=== PATIENT | female | born 1980 | race Caucasian/White ===

== ENCOUNTER 2017-03-27 13:34 | Emergency (ER) | payer BC ==
[2017-03-27 13:45] VITALS: BP 154/93
[2017-03-27] MEDS ORDERED: Ondansetron 4 MG/2 ML SDV IVPUSH ONE ×2 (14:00→17:10)
--- NOTE | 2017-03-27 14:00 | EDM.PDOC ---
ED HPI GI/ABDOMINAL - General Chief Complaint: Abdominal Pain Stated Complaint: ABDOMINAL PAIN Time Seen by Provider: 03/27/17 14:00 Source of Information: Reports: Patient, RN notes reviewed History Limitations: Reports: No limitations - History of Present Illness INITIAL COMMENTS - FREE TEXT/NARRATIVE: 36 year old female presents to the ED today with approximately 13 hour history of nausea, vomiting and diarrhea. She reports 20+ diarrhea stools and episodes of vomiting today. The symptoms came on suddenly. She reports feeling bloated with severe cramping, rated 10/10. The pain is located to her upper abdomen and epigastric region. She denies fever or chills. No other family members are sick. She does not feel she ate any rotten or bad food. No association with spicy or fatty food. This is a new problem for her. She's had no previous episodes like this in the past. She has a history of a D&C. She still has her gallbladder and appendix. She denies drinking any alcohol. She denies urinary symptoms and flank pain. She admits to smoking marijuana but not for a couple days. However, she says she's been around people who have been smoking marijuana. She denies urinary symptoms and flank pain. She is not on any forms of control. - Related Data Allergies/ADRs: Allergies Allergy/AdvReac Type Severity Reaction Status Date / Time amoxicillin Allergy Hives Verified 03/27/17 13:45 Penicillins Allergy Hives Verified 03/27/17 13:45 Home Meds: Home Meds Dicyclomine [Bentyl] 10 mg PO TID PRN #10 cap 03/27/17 [Rx] Ondansetron [Zofran ODT] 4 mg PO Q6H PRN #15 tab.dis 03/27/17 [Rx] Past Medical History - Past Health History Medical/Surgical History: Denies Medical/Surgical History Social & Family History - Tobacco Use Smoking Status *Q: Current Every Day Smoker Years of Tobacco use: 10 Packs/Tins Daily: 0.5 - Caffeine Use Caffeine Use: Reports: Soda - Recreational Drug Use Recreational Drug Use: No ED ROS GENERAL - Review of Systems Review Of Systems: See Below Constitutional: Reports: no symptoms. Denies: fever, chills, diaphoresis Respiratory: Reports: No Symptoms. Denies: Shortness of Breath, Cough Cardiovascular: Reports: No symptoms. Denies: Chest pain GI/Abdominal: Reports: Abdominal pain, Diarrhea, Decreased appetite, Nausea, Vomiting. Denies: Bloody stool, Hematochezia : Reports: no symptoms. Denies: dysuria, flank pain, frequency, urgency ED EXAM, GI/ABD - Physical Exam Exam: See Below Exam Limited By: No limitations General Appearance: alert, anxious, severe distress, obese Respiratory/Chest: no respiratory distress, lungs clear, normal breath sounds Cardiovascular: regular rate, rhythm, tachycardia GI/Abdominal: soft, no organomegaly, no distention, hypoactive bowel sounds, tenderness (RUQ, LUQ, and epigastric ), guarding, Griffin's sign Back Exam: normal inspection, full range of motion. No: CVA tenderness (L), CVA tenderness (R) Neurological: alert, normal cognition Course - Vital Signs Last Recorded V/S: Last Vital Signs Temp 97.5 F 03/27/17 13:42 Pulse 103 H 03/27/17 13:42 Resp 18 03/27/17 13:42 BP 154/93 H 03/27/17 13:42 Pulse Ox 98 03/27/17 13:42 - Orders/Labs/Meds Orders: Active Orders 24 hr Category Date Time Status Peripheral IV Care [RC] . DIRECTED Care 03/27/17 14:06 Active Abdomen 2V AP Flat Upright [CR] Stat Exams 03/27/17 15:29 Taken Abdomen Pelvis w Cont [CT] Stat Exams 03/27/17 14:20 Stop Req Sodium Chloride 0.9% [Saline Flush] Med 03/27/17 14:05 Active 10 ml FLUSH ASDIRECTED PRN Peripheral IV Insertion Adult [OM.PC] Stat Oth 03/27/17 14:06 Ordered Medication Orders Sodium Chloride (Saline Flush) 10 ml FLUSH ASDIRECTED PRN PRN Reason: Keep Vein Open Last Admin: 03/27/17 14:31 Dose: 10 ml Labs: Laboratory Tests 03/27/17 03/27/17 03/27/17 Range/Units 13:43 13:55 13:55 WBC 19.80 H (3.98-10.04) K/mm3 RBC 5.66 H (3.98-5.22) M/mm3 Hgb 15.7 (11.2-15.7) gm/L Hct 47.3 H (34.1-44.9) % MCV 83.6 (79.4-94.8) fl MCH 27.7 (25.6-32.2) pg MCHC 33.2 (32.2-35.5) g/dl RDW Std Deviation 43.0 (36.4-46.3) fL Plt Count 302 (182-369) K/mm3 MPV 9.7 (9.4-12.3) fl Neutrophils % (Manual) 77 H (40-60) % Band Neutrophils % 0 (0-10) % Lymphocytes % (Manual) 7 L (20-40) % Atypical Lymphs % 0 % Monocytes % (Manual) 3 (2-10) % Eosinophils % (Manual) 12 H (0.7-5.8) % Basophils % (Manual) 1 (0.1-1.2) Platelet Estimate Adequate Plt Morphology Comment Normal RBC Morph Comment Normal Sodium 140 (136-145) mEq/L Potassium 4.1 (3.5-5.1) mEq/L Chloride 103 (98-107) mEq/L Carbon Dioxide 27 (21-32) mEq/L Anion Gap 14.1 (5-15) BUN 16 (7-18) mg/dL Creatinine 1.0 (0.55-1.02) mg/dL Est Cr Clr Drug Dosing 72.11 mL/min Estimated GFR (MDRD) > 60 (>60) mL/min BUN/Creatinine Ratio 16.0 (14-18) Glucose 124 H (74-106) mg/dL Calcium 9.3 (8.5-10.1) mg/dL Total Bilirubin 0.4 (0.2-1.0) mg/dL AST 16 (15-37) U/L ALT 24 (14-59) U/L Alkaline Phosphatase 91 (46-116) U/L C-Reactive Protein (<1.0) mg/dL Total Protein 8.1 (6.4-8.2) g/dl Albumin 3.9 (3.4-5.0) g/dl Globulin 4.2 gm/dL Albumin/Globulin Ratio 0.9 L (1-2) Lipase 62 L (73-393) U/L Urine Color (Yellow) Urine Appearance (Clear) Urine pH (5.0-8.0) Ur Specific [place] (1.005-1.030) Urine Protein (Negative) Urine Glucose (UA) (Negative) Urine Ketones (Negative) Urine Occult Blood (Negative) Urine Nitrite (Negative) Urine Bilirubin (Negative) Urine Urobilinogen (0.2-1.0) Ur Leukocyte Esterase (Negative) Urine RBC (0-5) /hpf Urine WBC (0-5) /hpf Ur Epithelial Cells (0-5) /hpf Amorphous Sediment (NOT SEEN) /hpf Urine Bacteria (FEW) /hpf Urine Mucus (FEW) /hpf Urine HCG, Qual (NEGATIVE) Ethyl Alcohol 0.00 (0.00) gm% 03/27/17 03/27/17 03/27/17 Range/Units 15:55 16:05 16:05 WBC (3.98-10.04) K/mm3 RBC (3.98-5.22) M/mm3 Hgb (11.2-15.7) gm/L Hct (34.1-44.9) % MCV (79.4-94.8) fl MCH (25.6-32.2) pg MCHC (32.2-35.5) g/dl RDW Std Deviation (36.4-46.3) fL Plt Count (182-369) K/mm3 MPV (9.4-12.3) fl Neutrophils % (Manual) (40-60) % Band Neutrophils % (0-10) % Lymphocytes % (Manual) (20-40) % Atypical Lymphs % % Monocytes % (Manual) (2-10) % Eosinophils % (Manual) (0.7-5.8) % Basophils % (Manual) (0.1-1.2) Platelet Estimate Plt Morphology Comment RBC Morph Comment Sodium (136-145) mEq/L Potassium (3.5-5.1) mEq/L Chloride (98-107) mEq/L Carbon Dioxide (21-32) mEq/L Anion Gap (5-15) BUN (7-18) mg/dL Creatinine (0.55-1.02) mg/dL Est Cr Clr Drug Dosing mL/min Estimated GFR (MDRD) (>60) mL/min BUN/Creatinine Ratio (14-18) Glucose (74-106) mg/dL Calcium (8.5-10.1) mg/dL Total Bilirubin (0.2-1.0) mg/dL AST (15-37) U/L ALT (14-59) U/L Alkaline Phosphatase (46-116) U/L C-Reactive Protein 0.9 (<1.0) mg/dL Total Protein (6.4-8.2) g/dl Albumin (3.4-5.0) g/dl Globulin gm/dL Albumin/Globulin Ratio (1-2) Lipase (73-393) U/L Urine Color Yellow (Yellow) Urine Appearance Clear (Clear) Urine pH 7.0 (5.0-8.0) Ur Specific [place] 1.025 (1.005-1.030) Urine Protein Trace H (Negative) Urine Glucose (UA) Negative (Negative) Urine Ketones 3+ H (Negative) Urine Occult Blood Negative (Negative) Urine Nitrite Negative (Negative) Urine Bilirubin 1+ H (Negative) Urine Urobilinogen 0.2 (0.2-1.0) Ur Leukocyte Esterase Negative (Negative) Urine RBC 0-5 (0-5) /hpf Urine WBC 0-5 (0-5) /hpf Ur Epithelial Cells 0-5 (0-5) /hpf Amorphous Sediment Few H (NOT SEEN) /hpf Urine Bacteria Few (FEW) /hpf Urine Mucus Moderate H (FEW) /hpf Urine HCG, Qual Negative (NEGATIVE) Ethyl Alcohol (0.00) gm% Meds: Medications Generic Name Dose Route Start Last Admin Trade Name Rohini PRN Reason Stop Dose Admin Sodium Chloride 10 ml 03/27/17 14:05 03/27/17 14:31 Saline Flush FLUSH 10 ml ASDIRECTED PRN Administration Keep Vein Open Discontinued Medications Generic Name Dose Route Start Last Admin Trade Name Rohini PRN Reason Stop Dose Admin Dicyclomine HCl 10 mg 03/27/17 17:37 03/27/17 17:52 Bentyl PO 03/27/17 17:38 10 mg ONETIME ONE Administration Hydromorphone HCl 0.5 mg 03/27/17 14:17 03/27/17 14:26 Dilaudid IVPUSH 03/27/17 14:18 0.5 mg ONETIME ONE Administration Hydromorphone HCl 0.5 mg 03/27/17 15:25 03/27/17 15:30 Dilaudid IVPUSH 03/27/17 15:26 0.5 mg ONETIME ONE Administration Hydromorphone HCl 0.5 mg 03/27/17 16:25 03/27/17 16:32 Dilaudid IVPUSH 03/27/17 16:26 0.5 mg STAT ONE Administration Hydromorphone HCl 1 mg 03/27/17 17:29 03/27/17 17:42 Dilaudid IVPUSH 03/27/17 17:30 1 mg ONETIME ONE Administration Sodium Chloride 1,000 mls @ 999 mls/hr 03/27/17 14:17 03/27/17 14:23 Normal Saline IV 03/27/17 15:17 999 mls/hr ONETIME ONE Administration Ketorolac Tromethamine 30 mg 03/27/17 14:17 03/27/17 14:24 Toradol IVPUSH 03/27/17 14:18 30 mg ONETIME ONE Administration Lorazepam 0.5 mg 03/27/17 15:26 03/27/17 15:33 Ativan IVPUSH 03/27/17 15:27 0.5 mg ONETIME ONE Administration Ondansetron HCl 4 mg 03/27/17 14:00 03/27/17 14:05 Zofran IVPUSH 03/27/17 14:01 4 mg ONETIME ONE Administration Ondansetron HCl 4 mg 03/27/17 17:10 03/27/17 17:20 Zofran IVPUSH 03/27/17 17:11 4 mg ONETIME ONE Administration Promethazine HCl 25 mg 03/27/17 14:54 03/27/17 14:59 Phenergan IM 03/27/17 14:55 25 mg ONETIME ONE Administration - Re-Assessments/Exams Free Text/Narrative Re-Assessment/Exam: CBC reveals an elevated WBC of 19,000 but a normal differential indicating that this is likely a stress response. CRP is normal. CMP is normal except for mildly elevated glucose. Lipase is normal. UA is normal. Hcg is negative. Flat and upright abdominal film is unremarkable. No increased stool to indicate constipation. No air fluid levels to raise concern for bowel obstruction. The patient reported 20+ loose stools today, however she has had no stools while in the ED. She has had several episodes of dry heaving and vomiting despite a total of 8mg of Zofran and 25mg of Phenergan. She continued to have pain despite several doses of IV Dilaudid. Discussed history, exam, labs, and x-ray with Dr. Bailey. He does not recommend any further workup as an acute abdomen has been ruled out. Etiology is unclear. Differential includes gastroenteritis versus cannabis hyperemesis syndrome. I discussed these two diagnoses with the patient and educated her on supportive management. Prescriptions provided for Zofran and Bentyl. Instructed to f/u in ED if not improved in 24-48 hours. Departure - Departure Time of Disposition: 18:09 Disposition: Home, Self-Care 01 Condition: fair Clinical Impression: Nausea & vomiting Qualifiers: Vomiting type: unspecified Vomiting Intractability: intractable Qualified Code( s): R11.2 - Nausea with vomiting, unspecified Prescriptions: Dicyclomine [Bentyl] 10 mg PO TID PRN #10 cap PRN Reason: Cramping Ondansetron [Zofran ODT] 4 mg PO Q6H PRN #15 tab.dis PRN Reason: Nausea Referrals: PCP,None [Primary Care Provider] - Forms: ED Department Discharge Additional Instructions: Return to ER if symptoms worsen or do not improve in 24-48 hours Zofran 4mg tab every 6 hours as needed for nausea Bentyl 10mg up to 3 times a day as needed for cramping Immodium as directed for diarrhea You can also try Tylenol and Motrin for pain or fevers Try taking a hot shower and/or applying a heating pad to your stomach, this may offer quite a bit of relief Avoid marijuana Drink plenty of water and electrolyte beverages. Slowly advance your diet as tolerated - My Orders Last 24 Hours: My Active Orders 03/27/17 14:05 Sodium Chloride 0.9% [Saline Flush] 10 ml FLUSH ASDIRECTED PRN 03/27/17 14:06 Peripheral IV Care [RC] . DIRECTED Peripheral IV Insertion Adult [OM.PC] Stat 03/27/17 14:20 Abdomen Pelvis w Cont [CT] Stat 03/27/17 15:29 Abdomen 2V AP Flat Upright [CR] Stat - Assessment/Plan Last 24 Hours: My Active Orders 03/27/17 14:05 Sodium Chloride 0.9% [Saline Flush] 10 ml FLUSH ASDIRECTED PRN 03/27/17 14:06 Peripheral IV Care [RC] . DIRECTED Peripheral IV Insertion Adult [OM.PC] Stat 03/27/17 14:20 Abdomen Pelvis w Cont [CT] Stat 03/27/17 15:29 Abdomen 2V AP Flat Upright [CR] Stat
[2017-03-27] MEDS ORDERED: Sodium Chloride 0.9% 10 ML Syringe FLUSH PRN (14:05)
[2017-03-27] MEDS ORDERED: HYDROmorphone 0.5 MG/0.5 ML Syringe IVPUSH ONE ×2 (14:17→16:25)
[2017-03-27] MEDS ORDERED: Sodium Chloride 0.9% 1,000 ML IV ONE (14:17)
[2017-03-27] MEDS ORDERED: Ketorolac 30 MG/ML SDV IVPUSH ONE (14:17)
[2017-03-27] MEDS ORDERED: Promethazine 25 MG/ML SDV IM ONE (14:54)
[2017-03-27] MEDS ORDERED: HYDROmorphone 1 MG/ML Syringe IVPUSH ONE ×2 (15:25→17:29)
[2017-03-27] MEDS ORDERED: LORazepam 2 MG/ML MDV IVPUSH ONE (15:26)
[2017-03-27] MEDS ORDERED: Dicyclomine 10 MG Cap PO ONE (17:37)
--- NOTE | 2017-03-28 07:36 | CR ---
Abdomen: Supine and upright views of the abdomen were obtained. Bowel gas pattern is unremarkable. No abnormal calcifications or soft tissue abnormality is seen. Bony structures are unremarkable. No free air is identified. Impression: 1. No abnormality is identified on supine and upright abdominal x-ray. Diagnostic code #1
== END 2017-03-27 18:27 | disposition home or self-care (01) ==
LOC: JD.ED 13:34
DX: R11.2 Nausea with vomiting, unspecified (principal); R19.7 Diarrhea, unspecified; Z88.0 Allergy status to penicillin; Z88.1 Allergy status to other antibiotic agents; F17.200 Nicotine dependence, unspecified, uncomplicated
CPT/HCPCS: 36415; 74020; 80053; 81001; 81025; 83690; 85025; 86140; 96361; 96372; 96374; 96375; 96376; 99284; A9270; G0480; J1170; J1885; J2060; J2405; J2550; J7040; J7050

== ENCOUNTER 2017-03-29 18:43 | Emergency (ER) | payer BC ==
[2017-03-29 19:03] VITALS: BP 155/91
[2017-03-29] MEDS ORDERED: Sodium Chloride 0.9% 1,000 ML IV SCH ×2 (19:15→22:00)
[2017-03-29] MEDS ORDERED: Ondansetron 4 MG/2 ML SDV IVPUSH ONE (19:15)
[2017-03-29] MEDS ORDERED: LORazepam 2 MG/ML MDV IVPUSH ONE (19:15)
--- NOTE | 2017-03-29 19:45 | EDM.PDOC ---
ED HPI GI/ABDOMINAL - General Chief Complaint: Abdominal Pain Stated Complaint: VOMITING CRAMPING BODY TREMORS Time Seen by Provider: 03/29/17 18:58 Source of Information: Reports: Patient History Limitations: Reports: No limitations - History of Present Illness INITIAL COMMENTS - FREE TEXT/NARRATIVE: This is a 36-year-old female. She was seen 2 nights ago for abdominal pain nausea and vomiting and diarrhea. She was worked up had a white count of 19 ,000 and had a x-ray of her abdomen that was negative. Her urine was negative. Her electrolytes appeared to be within normal limits including liver function kidney function. She was given some Zofran and some Bentyl. She comes back today having the same complaints but they seemed to be getting worse and now she is having these twitching spells. The diarrhea has pretty much resolved but she still having the nausea and vomiting and the abdominal cramps. She states that she tries to eat or drink anything her abdomen immediately cramps up and she gets nauseated and if it's food she often times will vomit it back up. She has not been able to drink much fluids or eat anything in the last couple of days. She has no history of ulcer or she's had no sore throat no cough no congestion. All her abdominal cramping is in the upper abdomen. She is having a low-grade fever today of 99.9. Denies any back pain no difficulty in urination. - Related Data Allergies/ADRs: Allergies Allergy/AdvReac Type Severity Reaction Status Date / Time amoxicillin Allergy Hives Verified 03/27/17 13:45 Penicillins Allergy Hives Verified 03/27/17 13:45 Home Meds: Home Meds Dicyclomine [Bentyl] 10 mg PO TID PRN #10 cap 03/27/17 [Rx] Ondansetron [Zofran ODT] 4 mg PO Q6H PRN #15 tab.dis 03/27/17 [Rx] Pantoprazole Sodium [Protonix] 40 mg PO DAILY #30 suspdr.pkt 03/29/17 [Rx] Promethazine [Phenergan] 25 mg PO Q6H PRN #20 tablet 03/29/17 [Rx] Past Medical History - Past Health History Medical/Surgical History: Denies Medical/Surgical History - Past Surgical History Female Surgical History: Reports: D&C Social & Family History - Tobacco Use Smoking Status *Q: Never Smoker Years of Tobacco use: 10 Packs/Tins Daily: 0.5 - Caffeine Use Caffeine Use: Reports: Soda - Recreational Drug Use Recreational Drug Use: No ED ROS GENERAL - Review of Systems Review Of Systems: See Below Constitutional: Reports: fever, chills, weakness, fatigue HEENT: Reports: No symptoms Respiratory: Reports: No Symptoms Cardiovascular: Reports: No symptoms Endocrine: Reports: no symptoms GI/Abdominal: Reports: Abdominal pain, Diarrhea, Decreased appetite, Nausea, Vomiting. Denies: Black stool, Bloody stool : Reports: other ( she just finished her period). Denies: dysuria, flank pain Musculoskeletal: Reports: no symptoms Skin: Reports: no symptoms Neurological: Reports: No Symptoms Psychiatric: Reports: No symptoms Hematologic/Lymphatic: Reports: no symptoms Immunologic: Reports: no symptoms ED EXAM, GI/ABD - Physical Exam Exam: See Below Exam Limited By: No limitations General Appearance: alert, WD/WN, anxious, mild distress Eyes: bilateral: normal appearance Ears: normal external exam, normal canal, normal TMs Nose: normal inspection Throat/Mouth: Normal lips, Normal oropharynx, Normal voice Head: normocephalic Neck: supple, non-tender Respiratory/Chest: no respiratory distress, lungs clear, normal breath sounds Cardiovascular: regular rate, rhythm, tachycardia GI/Abdominal: soft, hypoactive bowel sounds, tenderness, guarding, Griffin's sign , other (Her abdominal pain appears to be in the epigastric and right upper quadrant, minimal left upper quadrant tenderness tonight and when she is distracted she has no lower abdominal tenderness noted). No: distention, rebound, rigidity Back Exam: full range of motion. No: CVA tenderness (L), CVA tenderness (R) Extremities: normal inspection, normal range of motion Neurological: alert, oriented Psychiatric: anxious Skin Exam: Warm, Dry Course - Vital Signs Last Recorded V/S: Last Vital Signs Temp 98.7 F 03/29/17 19:01 Pulse 88 03/29/17 19:01 Resp 20 03/29/17 19:01 BP 155/91 H 03/29/17 19:01 Pulse Ox 100 03/29/17 19:01 - Orders/Labs/Meds Orders: Active Orders 24 hr Category Date Time Status Abdomen Ltd [US] Stat Exams 04/29/17 19:19 Taken Sodium Chloride 0.9% [Normal Saline] 1,000 ml Med 03/29/17 19:15 Active IV ASDIRECTED Sodium Chloride 0.9% [Normal Saline] 1,000 ml Med 03/29/17 22:00 Active IV ASDIRECTED Medication Orders Sodium Chloride (Normal Saline) 1,000 mls @ 1,000 mls/hr IV ASDIRECTED JOHNIE Last Admin: 03/29/17 19:28 Dose: 1,000 mls/hr Sodium Chloride (Normal Saline) 1,000 mls @ 999 mls/hr IV ASDIRECTED JOHNIE Last Admin: 03/29/17 22:20 Dose: 999 mls/hr Labs: Laboratory Tests 03/29/17 03/29/17 03/29/17 Range/Units 19:30 19:30 21:55 WBC 12.40 H (3.98-10.04) K/mm3 RBC 5.37 H (3.98-5.22) M/mm3 Hgb 15.2 (11.2-15.7) gm/L Hct 44.7 (34.1-44.9) % MCV 83.2 (79.4-94.8) fl MCH 28.3 (25.6-32.2) pg MCHC 34.0 (32.2-35.5) g/dl RDW Std Deviation 41.9 (36.4-46.3) fL Plt Count 286 (182-369) K/mm3 MPV 9.6 (9.4-12.3) fl Neut % (Auto) 72.0 H (34.0-71.1) % Lymph % (Auto) 18.6 L (19.3-51.7) % [place] % (Auto) 5.9 (4.7-12.5) % Eos % (Auto) 3.1 (0.7-5.8) Baso % (Auto) 0.2 (0.1-1.2) % Neut # (Auto) 8.92 H (1.56-6.13) K/mm3 Lymph # (Auto) 2.31 (1.18-3.74) K/mm3 Casey # (Auto) 0.73 H (0.24-0.36) K/mm3 Eos # (Auto) 0.38 H (0.04-0.36) K/mm3 Baso # (Auto) 0.03 (0.01-0.08) K/mm3 Sodium 139 (136-145) mEq/L Potassium 3.1 L (3.5-5.1) mEq/L Chloride 102 (98-107) mEq/L Carbon Dioxide 27 (21-32) mEq/L Anion Gap 13.1 (5-15) BUN 15 (7-18) mg/dL Creatinine 1.1 H (0.55-1.02) mg/dL Est Cr Clr Drug Dosing 68.09 mL/min Estimated GFR (MDRD) 56 (>60) mL/min BUN/Creatinine Ratio 13.6 L (14-18) Glucose 105 (74-106) mg/dL Calcium 8.9 (8.5-10.1) mg/dL Total Bilirubin 0.5 (0.2-1.0) mg/dL AST 24 (15-37) U/L ALT 29 (14-59) U/L Alkaline Phosphatase 78 (46-116) U/L Total Protein 8.1 (6.4-8.2) g/dl Albumin 3.9 (3.4-5.0) g/dl Globulin 4.2 gm/dL Albumin/Globulin Ratio 0.9 L (1-2) Lipase 85 (73-393) U/L Urine Color Yellow (Yellow) Urine Appearance Slt cloudy H (Clear) Urine pH 7.0 (5.0-8.0) Ur Specific [place] 1.025 (1.005-1.030) Urine Protein 1+ H (Negative) Urine Glucose (UA) Negative (Negative) Urine Ketones 3+ H (Negative) Urine Occult Blood Negative (Negative) Urine Nitrite Negative (Negative) Urine Bilirubin 1+ H (Negative) Urine Urobilinogen 0.2 (0.2-1.0) Ur Leukocyte Esterase Negative (Negative) Urine RBC Not seen (0-5) /hpf Urine WBC 0-5 (0-5) /hpf Ur Epithelial Cells Not Reportable Ur Squamous Epith Cells 5-10 H (0-5) /hpf Urine Bacteria Few (FEW) /hpf Urine Mucus Moderate H (FEW) /hpf Meds: Medications Generic Name Dose Route Start Last Admin Trade Name Freq PRN Reason Stop Dose Admin Sodium Chloride 1,000 mls @ 1,000 mls/hr 03/29/17 19:15 03/29/17 19:28 Normal Saline IV 1,000 mls/hr ASDIRECTED JOHNIE Administration Sodium Chloride 1,000 mls @ 999 mls/hr 03/29/17 22:00 03/29/17 22:20 Normal Saline IV 999 mls/hr ASDIRECTED JOHNIE Administration Discontinued Medications Generic Name Dose Route Start Last Admin Trade Name Rohini PRN Reason Stop Dose Admin Lorazepam 0.5 mg 03/29/17 19:15 03/29/17 19:30 Ativan IVPUSH 03/29/17 19:16 0.5 mg ONETIME ONE Administration Ondansetron HCl 4 mg 03/29/17 19:15 03/29/17 19:29 Zofran IVPUSH 03/29/17 19:16 4 mg ONETIME ONE Administration Pantoprazole Sodium 40 mg 03/29/17 22:56 03/29/17 23:10 Protonix Iv IVPUSH 03/29/17 22:57 40 mg ONETIME ONE Administration Potassium Bicarbonate 40 meq 03/29/17 20:44 03/29/17 20:55 Effer-K PO 03/29/17 20:45 40 meq ONETIME ONE Administration Promethazine HCl 25 mg 03/29/17 22:01 03/29/17 22:20 Phenergan PO 03/29/17 22:02 25 mg Q4H ONE Administration - Re-Assessments/Exams Free Text/Narrative Re-Assessment/Exam: 03/29/17 22:54 I spoke to the patient at length regarding her lifestyle. She states she does not drink alcohol any longer. She is on a diet she is taking Wellbutrin, naltrexone and diethylpropion for her diet. It is noted that the naltrexone and diethylpropion have problems with nausea and vomiting as well as stomach discomfort. she has stopped these since the symptoms started and I believe she has a gastritis of unknown etiology and that we need to optimize her living conditions. So she needs to stop these medications until she is completely symptom-free and then she can start them again. 03/29/17 23:51 I went over the patient's food and diet and encouraged her not to be taking that she knows is going to upset her stomach. She tends to be lactose intolerant but she loves cheese and then has to stop until her belly feels better area also cautioned her no caffeine no citrus, stick to water and she may have Gatorade or Powerade provider does not citrus-based. She needs to optimize her food intake to those thing she knows does not cause her stomach upset. Departure - Departure Time of Disposition: 23:52 Disposition: Home, Self-Care 01 Condition: good Clinical Impression: Abdominal discomfort Gastritis Qualifiers: Gastritis type: other gastritis Chronicity: acute Gastritis bleeding: without bleeding Qualified Code(s): K29.00 - Acute gastritis without bleeding Nausea & vomiting Qualifiers: Vomiting type: unspecified Vomiting Intractability: intractable Qualified Code( s): R11.2 - Nausea with vomiting, unspecified Prescriptions: Pantoprazole Sodium [Protonix] 40 mg PO DAILY #30 suspdr.pkt Promethazine [Phenergan] 25 mg PO Q6H PRN #20 tablet PRN Reason: Nausea Forms: ED Department Discharge Additional Instructions: Continue to drink lots of fluids, stop Zofran since not helping, stop the Bentyl is a dozen to be helping either and might be the reason why you're having some of the twitches, started on a protonix and take 40 mg in the morning , use the Phenergan as needed for nausea, then you need to optimize your diet so that you do not eat or consume anything that aggravates your abdomen, with a gastritis you have to set the belly to rest and once it heals you can resume your diet, followup with your family doctor later this week for recheck, return to the ER if needed - My Orders Last 24 Hours: My Active Orders 03/29/17 19:15 Sodium Chloride 0.9% [Normal Saline] 1,000 ml IV ASDIRECTED 03/29/17 19:19 VIS Research [US] Stat 03/29/17 22:00 Sodium Chloride 0.9% [Normal Saline] 1,000 ml IV ASDIRECTED - Assessment/Plan Last 24 Hours: My Active Orders 03/29/17 19:15 Sodium Chloride 0.9% [Normal Saline] 1,000 ml IV ASDIRECTED 03/29/17 19:19 VIS Research [US] Stat 03/29/17 22:00 Sodium Chloride 0.9% [Normal Saline] 1,000 ml IV ASDIRECTED
[2017-03-29] MEDS ORDERED: Potassium Bicarbonate/Cit Ac 20 MEQ Effervescent Tab PO ONE (20:44)
[2017-03-29] MEDS ORDERED: Promethazine 25 MG Tab PO ONE (22:01)
[2017-03-29] MEDS ORDERED: Pantoprazole 40 MG Vial IVPUSH ONE (22:56)
--- NOTE | 2017-03-30 13:54 | US ---
Limited abdominal ultrasound: Multiple real-time images were obtained of the right upper abdomen. Comparison: No previous ultrasound or CT examination. Technologist's note: Technically difficult exam due to body habitus and bowel gas Liver shows no discrete abnormality. Gallbladder shows no gallstones. No gallbladder wall thickening or biliary duct dilatation is seen. Hypoechoic area seen within the mid to upper right renal pelvis most likely due to small parapelvic cyst measuring 1.1 cm. Pancreas is mostly obscured from bowel gas. Visualized portions of the pancreas are unremarkable. Impression: 1. Less than optimal study as noted above. 2. Possible parapelvic cyst within the right kidney which is incidental. 3. No additional abnormality is appreciated on right upper quadrant abdominal ultrasound exam. Diagnostic code #2 I agree with preliminary report issued by [facility] (report finalized on 03/29/17, 10:09 PM Central Time)
== END 2017-03-30 00:05 | disposition home or self-care (01) ==
LOC: JD.ED 18:43
DX: K29.00 Acute gastritis without bleeding (principal); Z88.0 Allergy status to penicillin; Z88.1 Allergy status to other antibiotic agents; Z79.899 Other long term (current) drug therapy
CPT/HCPCS: 36415; 76705; 80053; 81001; 83690; 85025; 96361; 96374; 96375; 99284; A9270; C9113; J2060; J2405; J7040; Q0169

== ENCOUNTER 2017-04-01 08:47 | Inpatient (IN) | payer BC ==
[2017-04-01] MEDS ORDERED: Sodium Chloride 0.9% 2,000 ML IV STA (09:15)
[2017-04-01] MEDS ORDERED: Ondansetron 4 MG/2 ML SDV IVPUSH ONE (09:15)
[2017-04-01] MEDS ORDERED: Sodium Chloride 0.9% 10 ML Syringe FLUSH PRN ×2 (09:15→10:12)
[2017-04-01] MEDS ORDERED: HYDROmorphone 1 MG/ML Syringe IVPUSH ONE (09:17)
--- NOTE | 2017-04-01 10:03 | EDM.PDOC ---
ED HPI GI/ABDOMINAL - General Chief Complaint: Abdominal Pain Stated Complaint: ABDOMINAL PAIN Time Seen by Provider: 04/01/17 09:05 Source of Information: Reports: Patient, Family History Limitations: Reports: No limitations - History of Present Illness INITIAL COMMENTS - FREE TEXT/NARRATIVE: The patient presents with upper abdominal pain, nausea and vomiting that started or 6 days ago. The patient was evaluated her on and again on Friday. She said it all started with some diarrhea. She has no diarrhea but she has upper abdominal pain, nausea and vomiting. Whatever she eats causes pain and then she vomits. She cannot keep anything down. She has no dysuria. She has fever and chills. She has no cough, congestion, runny nose , chest pain or shortness of breath. She still has her appendix and gallbladder. Timing/Duration: Reports: Day(s): (6) Location: other (upper) Quality: Reports: stabbing Severity: moderate Context: Denies: sick contact, bad/questionable food, out of country travel, recent surgery, recent trauma, lifting, activity/exercise Associated Symptoms (-Female): Reports: diarrhea (Initially but none now), fever/chills, loss of appetite, nausea/vomiting. Denies: chest pain - Related Data Allergies/ADRs: Allergies Allergy/AdvReac Type Severity Reaction Status Date / Time amoxicillin Allergy Hives Verified 04/01/17 08:57 Penicillins Allergy Hives Verified 04/01/17 08:57 Home Meds: Home Meds Pantoprazole Sodium [Protonix] 40 mg PO DAILY #30 suspdr.pkt 03/29/17 [Rx] Past Medical History - Past Health History Medical/Surgical History: Denies Medical/Surgical History - Past Surgical History Female Surgical History: Reports: D&C Social & Family History - Tobacco Use Smoking Status *Q: Unknown Ever Smoked Years of Tobacco use: 10 Packs/Tins Daily: 0.5 - Caffeine Use Caffeine Use: Reports: Soda - Recreational Drug Use Recreational Drug Use: No ED ROS GENERAL - Review of Systems Review Of Systems: See Below Constitutional: Reports: no symptoms HEENT: Reports: No symptoms Respiratory: Reports: No Symptoms Cardiovascular: Reports: No symptoms Endocrine: Reports: no symptoms GI/Abdominal: Reports: Abdominal pain, Diarrhea (Initially but none now), Nausea , Vomiting : Reports: no symptoms Musculoskeletal: Reports: no symptoms Skin: Reports: no symptoms Neurological: Reports: No Symptoms ED EXAM, GI/ABD - Physical Exam Exam: See Below Exam Limited By: No limitations General Appearance: alert, no apparent distress Ears: normal external exam Nose: normal inspection Throat/Mouth: Other (dry mucus membranes) Head: atraumatic, normocephalic Neck: normal inspection Respiratory/Chest: no respiratory distress, lungs clear, normal breath sounds Cardiovascular: regular rate, rhythm, no edema, no murmur GI/Abdominal: soft, no organomegaly, no mass, tenderness (Moderate to the upper abdomen) Back Exam: normal inspection Extremities: normal inspection Course - Vital Signs Last Recorded V/S: Last Vital Signs Temp 98.7 F 04/01/17 08:54 Pulse 87 04/01/17 08:54 Resp 18 04/01/17 08:54 BP 146/96 H 04/01/17 08:54 Pulse Ox 100 04/01/17 08:54 Orthostatic Blood Pressure [ 126/99 Standing] Orthostatic Blood Pressure [ 146/96 Supine] - Orders/Labs/Meds Orders: Active Orders 24 hr Category Date Time Status Patient Status [ADT] Routine ADT 04/01/17 12:27 Ordered Peripheral IV Care [RC] . DIRECTED Care 04/01/17 09:15 Active Sodium Chloride 0.9% [Saline Flush] Med 04/01/17 09:15 Active 10 ml FLUSH ASDIRECTED PRN Sodium Chloride 0.9% [Saline Flush] Med 04/01/17 10:12 Active 10 ml FLUSH ONETIME PRN ED Antiemetic Medication Reflex [OM.PC] Stat Oth 04/01/17 09:15 Ordered Peripheral IV Insertion Adult [OM.PC] Stat Oth 04/01/17 09:15 Ordered Medication Orders Sodium Chloride (Saline Flush) 10 ml FLUSH ASDIRECTED PRN PRN Reason: Keep Vein Open Last Admin: 04/01/17 09:31 Dose: 10 ml Sodium Chloride (Saline Flush) 10 ml FLUSH ONETIME PRN PRN Reason: IV FLUSH Last Admin: 04/01/17 10:39 Dose: 10 ml Labs: Laboratory Tests 04/01/17 04/01/17 04/01/17 Range/Units 09:34 09:34 09:34 WBC 9.19 (3.98-10.04) K/mm3 RBC 6.36 H (3.98-5.22) M/mm3 Hgb 17.9 H (11.2-15.7) gm/L Hct 51.4 H (34.1-44.9) % MCV 80.8 (79.4-94.8) fl MCH 28.1 (25.6-32.2) pg MCHC 34.8 (32.2-35.5) g/dl RDW Std Deviation 40.4 (36.4-46.3) fL Plt Count 313 (182-369) K/mm3 MPV 9.9 (9.4-12.3) fl Neut % (Auto) 67.0 (34.0-71.1) % Lymph % (Auto) 21.1 (19.3-51.7) % [place] % (Auto) 8.9 (4.7-12.5) % Eos % (Auto) 2.2 (0.7-5.8) Baso % (Auto) 0.5 (0.1-1.2) % Neut # (Auto) 6.15 H (1.56-6.13) K/mm3 Lymph # (Auto) 1.94 (1.18-3.74) K/mm3 [place] # (Auto) 0.82 H (0.24-0.36) K/mm3 Eos # (Auto) 0.20 (0.04-0.36) K/mm3 Baso # (Auto) 0.05 (0.01-0.08) K/mm3 Manual Slide Review Normal smear Sodium 139 (136-145) mEq/L Potassium 3.1 L (3.5-5.1) mEq/L Chloride 100 (98-107) mEq/L Carbon Dioxide 29 (21-32) mEq/L Anion Gap 13.1 (5-15) BUN 15 (7-18) mg/dL Creatinine 1.1 H (0.55-1.02) mg/dL Est Cr Clr Drug Dosing TNP Estimated GFR (MDRD) 56 (>60) mL/min BUN/Creatinine Ratio 13.6 L (14-18) Glucose 104 (74-106) mg/dL Calcium 9.4 (8.5-10.1) mg/dL Total Bilirubin 1.3 H (0.2-1.0) mg/dL AST 31 (15-37) U/L ALT 65 H (14-59) U/L Alkaline Phosphatase 96 (46-116) U/L Total Protein 8.7 H (6.4-8.2) g/dl Albumin 4.1 (3.4-5.0) g/dl Globulin 4.6 gm/dL Albumin/Globulin Ratio 0.9 L (1-2) Lipase 212 (73-393) U/L HCG, Qual Negative (NEGATIVE) Urine Color (Yellow) Urine Appearance (Clear) Urine pH (5.0-8.0) Ur Specific [place] (1.005-1.030) Urine Protein (Negative) Urine Glucose (UA) (Negative) Urine Ketones (Negative) Urine Occult Blood (Negative) Urine Nitrite (Negative) Urine Bilirubin (Negative) Urine Urobilinogen (0.2-1.0) Ur Leukocyte Esterase (Negative) Urine RBC (0-5) /hpf Urine WBC (0-5) /hpf Ur Epithelial Cells (0-5) /hpf Urine Bacteria (FEW) /hpf Urine Mucus (FEW) /hpf 04/01/17 Range/Units 10:55 WBC (3.98-10.04) K/mm3 RBC (3.98-5.22) M/mm3 Hgb (11.2-15.7) gm/L Hct (34.1-44.9) % MCV (79.4-94.8) fl MCH (25.6-32.2) pg MCHC (32.2-35.5) g/dl RDW Std Deviation (36.4-46.3) fL Plt Count (182-369) K/mm3 MPV (9.4-12.3) fl Neut % (Auto) (34.0-71.1) % Lymph % (Auto) (19.3-51.7) % [place] % (Auto) (4.7-12.5) % Eos % (Auto) (0.7-5.8) Baso % (Auto) (0.1-1.2) % Neut # (Auto) (1.56-6.13) K/mm3 Lymph # (Auto) (1.18-3.74) K/mm3 [place] # (Auto) (0.24-0.36) K/mm3 Eos # (Auto) (0.04-0.36) K/mm3 Baso # (Auto) (0.01-0.08) K/mm3 Manual Slide Review Sodium (136-145) mEq/L Potassium (3.5-5.1) mEq/L Chloride (98-107) mEq/L Carbon Dioxide (21-32) mEq/L Anion Gap (5-15) BUN (7-18) mg/dL Creatinine (0.55-1.02) mg/dL Est Cr Clr Drug Dosing Estimated GFR (MDRD) (>60) mL/min BUN/Creatinine Ratio (14-18) Glucose (74-106) mg/dL Calcium (8.5-10.1) mg/dL Total Bilirubin (0.2-1.0) mg/dL AST (15-37) U/L ALT (14-59) U/L Alkaline Phosphatase (46-116) U/L Total Protein (6.4-8.2) g/dl Albumin (3.4-5.0) g/dl Globulin gm/dL Albumin/Globulin Ratio (1-2) Lipase (73-393) U/L HCG, Qual (NEGATIVE) Urine Color Yellow (Yellow) Urine Appearance Clear (Clear) Urine pH 6.5 (5.0-8.0) Ur Specific [place] 1.015 (1.005-1.030) Urine Protein Negative (Negative) Urine Glucose (UA) Negative (Negative) Urine Ketones Trace H (Negative) Urine Occult Blood Negative (Negative) Urine Nitrite Negative (Negative) Urine Bilirubin Negative (Negative) Urine Urobilinogen 0.2 (0.2-1.0) Ur Leukocyte Esterase Trace H (Negative) Urine RBC 0-5 (0-5) /hpf Urine WBC 5-10 H (0-5) /hpf Ur Epithelial Cells 5-10 H (0-5) /hpf Urine Bacteria Rare (FEW) /hpf Urine Mucus Few (FEW) /hpf Meds: Medications Generic Name Dose Route Start Last Admin Trade Name Freq PRN Reason Stop Dose Admin Sodium Chloride 10 ml 04/01/17 09:15 04/01/17 09:31 Saline Flush FLUSH 10 ml ASDIRECTED PRN Administration Keep Vein Open Sodium Chloride 10 ml 04/01/17 10:12 04/01/17 10:39 Saline Flush FLUSH 10 ml ONETIME PRN Administration IV FLUSH Discontinued Medications Generic Name Dose Route Start Last Admin Trade Name Rohini PRN Reason Stop Dose Admin Diatrizoate Meglum/Diatrizoate Sod 90 ml 04/01/17 10:12 04/01/17 10:39 Gastrografin 37% PO 04/01/17 10:13 90 ml ONETIME ONE Administration Hydromorphone HCl 1 mg 04/01/17 09:17 04/01/17 09:30 Dilaudid IVPUSH 04/01/17 09:18 1 mg ONETIME ONE Administration Sodium Chloride 2,000 mls @ 1,000 mls/hr 04/01/17 09:15 04/01/17 09:31 Normal Saline IV 04/01/17 11:14 1,000 mls/hr .BOLUS STA Administration Iopamidol 125 ml 04/01/17 10:12 04/01/17 10:39 Isovue-300 (61%) IVPUSH 04/01/17 10:13 125 ml ONETIME ONE Administration Ondansetron HCl 4 mg 04/01/17 09:15 04/01/17 09:30 Zofran IVPUSH 04/01/17 09:16 4 mg ONETIME ONE Administration - Re-Assessments/Exams Free Text/Narrative Re-Assessment/Exam: 04/01/17 10:05 I ordered an IV and a 2L bolus, zofran 4mg IV and dilaudid 1g IV. 04/01/17 12:29 Her WBC is normal at 9.19. Her Hgb is elevated at 17.9. Her K was low at 3.1. Her creatinine was elevated at 1.1. Her ALT was elevated at 65. Her HCG was negative. Her lipase was negative. Her CT shows incidental findings as noted above. Nothing acute is identified on CT study of the abdomen and pelvis. She still has some pain and nausea. I feel she may need to be admitted. I called Dr Barger and he agreed to the admission. I will start some D5 NS with 20meq of KCL at 150mls. Departure - Departure Time of Disposition: 12:35 Disposition: Admitted As Inpatient 65 Condition: fair Clinical Impression: Hypokalemia, Dehydration Nausea & vomiting Qualifiers: Vomiting type: unspecified Vomiting Intractability: intractable Qualified Code( s): R11.2 - Nausea with vomiting, unspecified Abdominal pain Qualifiers: Abdominal location: upper abdomen, unspecified Qualified Code(s): R10.10 - Upper abdominal pain, unspecified Forms: ED Department Discharge - My Orders Last 24 Hours: My Active Orders 04/01/17 09:15 Peripheral IV Care [RC] . DIRECTED Sodium Chloride 0.9% [Saline Flush] 10 ml FLUSH ASDIRECTED PRN ED Antiemetic Medication Reflex [OM.PC] Stat Peripheral IV Insertion Adult [OM.PC] Stat 04/01/17 10:12 Sodium Chloride 0.9% [Saline Flush] 10 ml FLUSH ONETIME PRN 04/01/17 12:27 Patient Status [ADT] Routine - Assessment/Plan Last 24 Hours: My Active Orders 04/01/17 09:15 Peripheral IV Care [RC] . DIRECTED Sodium Chloride 0.9% [Saline Flush] 10 ml FLUSH ASDIRECTED PRN ED Antiemetic Medication Reflex [OM.PC] Stat Peripheral IV Insertion Adult [OM.PC] Stat 04/01/17 10:12 Sodium Chloride 0.9% [Saline Flush] 10 ml FLUSH ONETIME PRN 04/01/17 12:27 Patient Status [ADT] Routine
[2017-04-01] MEDS ORDERED: Diatrizoate Meglumine/Diatrizoate Sodium 37% 120 ML Bottle PO ONE (10:12)
[2017-04-01] MEDS ORDERED: Iopamidol 612 MG/ML 150 ML Bottle IVPUSH ONE (10:12)
--- NOTE | 2017-04-01 12:05 | CT ---
CT abdomen and pelvis Technique: Multiple axial sections were obtained from above the dome of the diaphragm inferiorly through the pubic symphysis. Intravenous and oral contrast was utilized. Comparison: Previous abdominal ultrasound of 03/29/17 and abdominal x-ray from 03/27/17 is available. Findings: Visualized lung bases are clear. Liver shows no focal abnormality. Spleen appears within normal limits. Adrenal glands show no nodule. Gallbladder shows no calcified gallstones. Kidneys show contrast-enhancement without hydronephrosis or mass. Prior ultrasound showed a questionable parapelvic cyst within the right kidney which is not appreciated on current exam and is felt to be artifact on prior study. Small soft tissue nodule medial to the spleen is seen which is compatible with accessory splenic tissue. Aorta shows no aneurysmal dilatation. Pancreas appears within normal limits. No retroperitoneal adenopathy or mesenteric abnormalities are seen. No pelvic mass or adenopathy is identified. Appendix is seen which appears normal. Minimal fat-containing umbilical hernia is incidentally noted. 3.1 cm cyst is noted within the right ovary which is incidental. No pelvic mass or adenopathy is seen. Delayed images shows contrast within the distal ureters and within the bladder. Impression: 1. Incidental findings as noted above. Nothing acute is identified on CT study of the abdomen and pelvis. Diagnostic code #2
[2017-04-01] MEDS ORDERED: Temazepam 30 MG Cap PO PRN (12:37)
[2017-04-01] MEDS ORDERED: Albuterol 0.083% 2.5 MG/3 ML Neb Soln NEB PRN (12:37)
[2017-04-01] MEDS ORDERED: LORazepam 2 MG/ML MDV IV PRN (12:37)
--- NOTE | 2017-04-01 12:37 | PCM.HP ---
H&P History of Present Illness - General Date of Service: 04/08/17 Admit Problem/Dx: Admission Diagnosis/Problem Admission Diagnosis/Problem Vomiting Source of Information: Patient, Family, Old records, Provider, RN notes reviewed History Limitations: Reports: No limitations - History of Present Illness Initial Comments - Free Text/Narative: Tis is a 36 yo white female with no past medical hx except for Morbid Obesity who comes in with complaints of GI symptoms: Abdominal pain, nausea vomiting and diarrhea. She has been seen in ED twice for similar c/o with unremarkable work up. Her Repeat CT scan today shows no acute abnormal findings. Patient carries a hx/o Morbid Obesity. She is on weight loss medications. She had a total 70lbs weight loss since she embarked on this weight loss program. However she is still obese with BMI of 43.5. She does not participate in a regular exercise however she admits to eat proper diet. Patient is being admitted for intractable Nausea and Vomiting. Abdomen Pain Score (Numeric/FACES): 7 - Related Data Allergies/Adverse Reactions: Allergies Allergy/AdvReac Type Severity Reaction Status Date / Time amoxicillin Allergy Hives Verified 04/01/17 08:57 Penicillins Allergy Hives Verified 04/01/17 08:57 Home Medications: Home Meds Pantoprazole Sodium [Protonix] 40 mg PO DAILY #30 suspdr.pkt 03/29/17 [Rx] Diethylpropion HCl [Diethylpropion] 25 mg PO BID 04/01/17 [History] Naltrexone 50 mg PO DAILY 04/01/17 [History] buPROPion [Wellbutrin XL] 150 mg PO DAILY 04/01/17 [History] metFORMIN [Glucophage XR] 500 mg PO BID 04/01/17 [History] Past Medical History - Past Health History Medical/Surgical History: Denies Medical/Surgical History - Past Surgical History Female Surgical History: Reports: D&C Social & Family History - Tobacco Use Smoking Status *Q: Unknown Ever Smoked Years of Tobacco use: 10 Packs/Tins Daily: 0.5 - Caffeine Use Caffeine Use: Reports: Soda - Recreational Drug Use Recreational Drug Use: No H&P Review of Systems - Review of Systems: Review Of Systems: See Below General: Reports: weakness, decreased appetite. Denies: fever, chills HEENT: Reports: no symptoms Pulmonary: Denies: Shortness of Breath Cardiovascular: Denies: chest pain, palpitations, dyspnea on exertion Gastrointestinal: Reports: Abdominal pain, Diarrhea, Decreased appetite, Flatus , Nausea. Denies: Vomiting Genitourinary: Reports: no symptoms Musculoskeletal: Reports: no symptoms Skin: Denies: cyanosis, pruritis, erythema Psychiatric: Denies: depression, anxiety, hallucinations Neurological: Denies: Confusion, Difficulty Walking, Weakness, Gait Disturbance Hematologic/Lymphatic: Reports: no symptoms Immunologic: Reports: no symptoms Exam - Exam Exam: See Below - Vital Signs Vital Signs: Last Vital Signs Temp 37.1 C 04/01/17 08:54 Pulse 87 04/01/17 08:54 Resp 18 04/01/17 08:54 BP 146/96 H 04/01/17 08:54 Pulse Ox 100 04/01/17 08:54 Orthostatic Blood Pressure [ 126/99 Standing] Orthostatic Blood Pressure [ 146/96 Supine] Weight: 129.274 kg - Exam General: alert, oriented, cooperative, other (Morbidly Obese). No: mild distress HEENT: Conjunctiva clear, EACs clear, EOMI, Hearing intact, Mucosa moist & pink , Nares patent, Normal nasal septum, Pupils equal, Pupils reactive Neck: supple, trachea midline, 2+ carotid pulse wo bruit Lungs: Clear to auscultation, Normal respiratory effort Cardiovascular: regular rate, regular rhythm Abdomen: normal bowel sounds, soft, tenderness. No: organomegaly, peritoneal signs, distention, guarding, rigidity, rebound (Female) Exam: Deferred Rectal (Female) Exam: Deferred Back Exam: normal inspection, decreased range of motion Extremities: normal inspection, normal pulses. No: clubbing, cyanosis, calf tenderness, edema Skin: warm, dry, intact Neuro Extensive - Mental Status: oriented x3, normal cognition, memory intact Neuro Extensive - Motor, Sensory, Reflexes: CN II-XII intact, normal gait Psychiatric: alert, normal affect, normal mood - Patient Data Lab Results last 24 hrs: Laboratory Results - last 24 hr 04/01/17 04/01/17 04/01/17 Range/Units 09:34 09:34 09:34 WBC 9.19 (3.98-10.04) K/mm3 RBC 6.36 H (3.98-5.22) M/mm3 Hgb 17.9 H (11.2-15.7) gm/L Hct 51.4 H (34.1-44.9) % MCV 80.8 (79.4-94.8) fl MCH 28.1 (25.6-32.2) pg MCHC 34.8 (32.2-35.5) g/dl RDW Std Deviation 40.4 (36.4-46.3) fL Plt Count 313 (182-369) K/mm3 MPV 9.9 (9.4-12.3) fl Neut % (Auto) 67.0 (34.0-71.1) % Lymph % (Auto) 21.1 (19.3-51.7) % [place] % (Auto) 8.9 (4.7-12.5) % Eos % (Auto) 2.2 (0.7-5.8) Baso % (Auto) 0.5 (0.1-1.2) % Neut # (Auto) 6.15 H (1.56-6.13) K/mm3 Lymph # (Auto) 1.94 (1.18-3.74) K/mm3 [place] # (Auto) 0.82 H (0.24-0.36) K/mm3 Eos # (Auto) 0.20 (0.04-0.36) K/mm3 Baso # (Auto) 0.05 (0.01-0.08) K/mm3 Manual Slide Review Normal smear Sodium 139 (136-145) mEq/L Potassium 3.1 L (3.5-5.1) mEq/L Chloride 100 (98-107) mEq/L Carbon Dioxide 29 (21-32) mEq/L Anion Gap 13.1 (5-15) BUN 15 (7-18) mg/dL Creatinine 1.1 H (0.55-1.02) mg/dL Est Cr Clr Drug Dosing TNP Estimated GFR (MDRD) 56 (>60) mL/min BUN/Creatinine Ratio 13.6 L (14-18) Glucose 104 (74-106) mg/dL Calcium 9.4 (8.5-10.1) mg/dL Total Bilirubin 1.3 H (0.2-1.0) mg/dL AST 31 (15-37) U/L ALT 65 H (14-59) U/L Alkaline Phosphatase 96 (46-116) U/L Total Protein 8.7 H (6.4-8.2) g/dl Albumin 4.1 (3.4-5.0) g/dl Globulin 4.6 gm/dL Albumin/Globulin Ratio 0.9 L (1-2) Lipase 212 (73-393) U/L HCG, Qual Negative (NEGATIVE) Urine Color (Yellow) Urine Appearance (Clear) Urine pH (5.0-8.0) Ur Specific [place] (1.005-1.030) Urine Protein (Negative) Urine Glucose (UA) (Negative) Urine Ketones (Negative) Urine Occult Blood (Negative) Urine Nitrite (Negative) Urine Bilirubin (Negative) Urine Urobilinogen (0.2-1.0) Ur Leukocyte Esterase (Negative) Urine RBC (0-5) /hpf Urine WBC (0-5) /hpf Ur Epithelial Cells (0-5) /hpf Urine Bacteria (FEW) /hpf Urine Mucus (FEW) /hpf 04/01/17 Range/Units 10:55 WBC (3.98-10.04) K/mm3 RBC (3.98-5.22) M/mm3 Hgb (11.2-15.7) gm/L Hct (34.1-44.9) % MCV (79.4-94.8) fl MCH (25.6-32.2) pg MCHC (32.2-35.5) g/dl RDW Std Deviation (36.4-46.3) fL Plt Count (182-369) K/mm3 MPV (9.4-12.3) fl Neut % (Auto) (34.0-71.1) % Lymph % (Auto) (19.3-51.7) % [place] % (Auto) (4.7-12.5) % Eos % (Auto) (0.7-5.8) Baso % (Auto) (0.1-1.2) % Neut # (Auto) (1.56-6.13) K/mm3 Lymph # (Auto) (1.18-3.74) K/mm3 [place] # (Auto) (0.24-0.36) K/mm3 Eos # (Auto) (0.04-0.36) K/mm3 Baso # (Auto) (0.01-0.08) K/mm3 Manual Slide Review Sodium (136-145) mEq/L Potassium (3.5-5.1) mEq/L Chloride (98-107) mEq/L Carbon Dioxide (21-32) mEq/L Anion Gap (5-15) BUN (7-18) mg/dL Creatinine (0.55-1.02) mg/dL Est Cr Clr Drug Dosing Estimated GFR (MDRD) (>60) mL/min BUN/Creatinine Ratio (14-18) Glucose (74-106) mg/dL Calcium (8.5-10.1) mg/dL Total Bilirubin (0.2-1.0) mg/dL AST (15-37) U/L ALT (14-59) U/L Alkaline Phosphatase (46-116) U/L Total Protein (6.4-8.2) g/dl Albumin (3.4-5.0) g/dl Globulin gm/dL Albumin/Globulin Ratio (1-2) Lipase (73-393) U/L HCG, Qual (NEGATIVE) Urine Color Yellow (Yellow) Urine Appearance Clear (Clear) Urine pH 6.5 (5.0-8.0) Ur Specific [place] 1.015 (1.005-1.030) Urine Protein Negative (Negative) Urine Glucose (UA) Negative (Negative) Urine Ketones Trace H (Negative) Urine Occult Blood Negative (Negative) Urine Nitrite Negative (Negative) Urine Bilirubin Negative (Negative) Urine Urobilinogen 0.2 (0.2-1.0) Ur Leukocyte Esterase Trace H (Negative) Urine RBC 0-5 (0-5) /hpf Urine WBC 5-10 H (0-5) /hpf Ur Epithelial Cells 5-10 H (0-5) /hpf Urine Bacteria Rare (FEW) /hpf Urine Mucus Few (FEW) /hpf Result Diagrams: 04/01/17 09:34 04/01/17 09:34 *Q Meaningful Use (ADM) - VTE *Q VTE Criteria *Q: - Stroke *Q Stroke Criteria *Q: - AMI *Q AMI Criteria *Q: Problem List Initiated/Reviewed/Updated: Yes Orders Last 24hrs: Active Orders 24 hr Category Date Time Status Patient Status [ADT] Routine ADT 04/01/17 12:27 Active Peripheral IV Care [RC] . DIRECTED Care 04/01/17 09:15 Active Dextrose 5%-0.9% NaCl with KCl [D5 NS with 20 mEq KCl] Med 04/01/17 12:45 Active 1,000 ml IV ASDIRECTED Sodium Chloride 0.9% [Saline Flush] Med 04/01/17 09:15 Active 10 ml FLUSH ASDIRECTED PRN Sodium Chloride 0.9% [Saline Flush] Med 04/01/17 10:12 Active 10 ml FLUSH ONETIME PRN ED Antiemetic Medication Reflex [OM.PC] Stat Ot 04/01/17 09:15 Ordered Peripheral IV Insertion Adult [OM.PC] Stat Ot 04/01/17 09:15 Ordered Medication Orders Potassium Chloride/Dextrose/Sod Cl (D5 Ns With 20 Meq Kcl) 1,000 mls @ 150 mls/ hr IV ASDIRECTED JOHNIE Sodium Chloride (Saline Flush) 10 ml FLUSH ASDIRECTED PRN PRN Reason: Keep Vein Open Last Admin: 04/01/17 09:31 Dose: 10 ml Sodium Chloride (Saline Flush) 10 ml FLUSH ONETIME PRN PRN Reason: IV FLUSH Last Admin: 04/01/17 10:39 Dose: 10 ml Assessment/Plan Comment:: Assessment/Plan: Acute Toxicity to Weight Loss Drugs - She is on the following meds: diethylpropion 25 mg po BID, Natrexone 50 m gpo daily, Metformin 500 mg po BID (not sure if has already been increased) and Wellbutrin 150 mg po daily - Lost 70lbs so far - She does not eat properly or exercise - She is dependent on Medication only i.e. "easy way out" - Her Metformin was recently up in dose per patient - Will hold off all meds except Wellbutrin - Supportive care and IV fluids Intractable Nausea and Vomiting - 2/2 above - PNR Meds - Supportive Care Morbid Obesity - BMI of 43.5 - Refused Dietary Consult - She does not exercise Plan: Admit to the floor Routine AM Labs Continue Wellbutrin Home Dose Med PT/OT eval SW/CM for d/c planning Additional orders as above
[2017-04-01] MEDS: Dextrose 5%-0.9% NaCl with KCl 1,000 ML IV SCH ×2 (12:39→19:30)
[2017-04-01] MEDS ORDERED: Metoprolol Tartrate 5 MG/5 ML SDV IVPUSH PRN (13:49)
[2017-04-01] MEDS ORDERED: diphenhydrAMINE 50 MG/ML SDV IVPUSH ONE (14:15)
[2017-04-01] MEDS: hydrALAZINE 20 MG/ML SDV IVPUSH PRN (14:23)
[2017-04-01] MEDS: Ondansetron 4 MG/2 ML SDV IVPUSH PRN ×2 (14:23→20:14)
[2017-04-01] MEDS ORDERED: Dextrose 5%-0.45% NaCl 1,000 ML IV SCH (14:30)
[2017-04-01] MEDS ORDERED: Acetaminophen/Butalbital/Caffeine 325-50-40 MG Tab PO PRN (21:37)
[2017-04-01] MEDS ORDERED: Scopolamine 1.5 MG Transdermal Patch TRDERM PRN (22:00)
[2017-04-02] MEDS: Dextrose 5%-0.9% NaCl with KCl 1,000 ML IV SCH (02:09)
[2017-04-02] MEDS: Ondansetron 4 MG/2 ML SDV IVPUSH PRN ×2 (05:29→09:51)
[2017-04-02] MEDS: hydrALAZINE 20 MG/ML SDV IVPUSH PRN (05:29)
[2017-04-02] MEDS: buPROPion 150 MG Tab.ER PO SCH (09:50)
[2017-04-02] MEDS: Acetaminophen 325 MG Tab PO PRN ×2 (13:17→17:16)
[2017-04-02] MEDS: Acetaminophen/HYDROcodone 325-5 MG Tab PO PRN ×2 (13:17→17:16)
[2017-04-02] MEDS ORDERED: Sodium Chloride 0.9% 10 ML Syringe FLUSH PRN (14:14)
--- NOTE | 2017-04-02 19:19 | PCM.PN ---
- General Info Date of Service: 04/02/17 Admission Dx/Problem (Free Text): Admission Diagnosis/Problem Admission Diagnosis/Problem Vomiting Subjective Update: Follow Up Functional Status: Reports: pain controlled, tolerating diet. Denies: new symptoms Pain Score: 5 - Review of Systems General: Denies: Fever, Chills HEENT: Reports: no symptoms Pulmonary: Denies: shortness of breath Cardiovascular: Denies: Chest Pain Gastrointestinal: Reports: Abdominal pain, Nausea, Vomiting, Other (belching) Genitourinary: Reports: no symptoms Musculoskeletal: Reports: no symptoms Skin: Reports: no symptoms Neurological: Denies: Confusion, Difficulty Walking, Weakness, Gait Disturbance Psychiatric: Denies: depression, anxiety, cravings, hallucinations Systems Review Comment:: No overnight issues. She is tolerating clear liquids. She complaints of belching this am. She still has abdominal pain with pain scale of 5/10. She has no other new complaints. - Patient Data Vitals - most recent: Last Vital Signs Temp 37.7 C 04/02/17 13:17 Pulse 80 04/02/17 12:49 Resp 15 04/02/17 12:49 BP 148/77 H 04/02/17 12:49 Pulse Ox 100 04/02/17 12:49 Weight - most recent: 126.189 kg I&O - last 24 hours: Intake & Output 04/02/17 04/02/17 04/02/17 06:59 14:59 22:59 Intake Total 2298 860 Output Total 400 1145 Balance 1898 -285 Lab Results last 24 hrs: Laboratory Results - last 24 hr 04/02/17 04/02/17 Range/Units 05:20 05:20 WBC 8.31 (3.98-10.04) K/mm3 RBC 5.16 (3.98-5.22) M/mm3 Hgb 14.7 (11.2-15.7) gm/L Hct 42.9 (34.1-44.9) % MCV 83.1 (79.4-94.8) fl MCH 28.5 (25.6-32.2) pg MCHC 34.3 (32.2-35.5) g/dl RDW Std Deviation 41.3 (36.4-46.3) fL Plt Count 268 (182-369) K/mm3 MPV 10.0 (9.4-12.3) fl Neut % (Auto) 67.3 (34.0-71.1) % Lymph % (Auto) 20.7 (19.3-51.7) % [place] % (Auto) 9.9 (4.7-12.5) % Eos % (Auto) 1.8 (0.7-5.8) Baso % (Auto) 0.2 (0.1-1.2) % Neut # (Auto) 5.59 (1.56-6.13) K/mm3 Lymph # (Auto) 1.72 (1.18-3.74) K/mm3 [place] # (Auto) 0.82 H (0.24-0.36) K/mm3 Eos # (Auto) 0.15 (0.04-0.36) K/mm3 Baso # (Auto) 0.02 (0.01-0.08) K/mm3 Sodium 141 (136-145) mEq/L Potassium 3.5 (3.5-5.1) mEq/L Chloride 107 (98-107) mEq/L Carbon Dioxide 26 (21-32) mEq/L Anion Gap 11.5 (5-15) BUN 9 (7-18) mg/dL Creatinine 0.9 (0.55-1.02) mg/dL Est Cr Clr Drug Dosing 83.23 mL/min Estimated GFR (MDRD) > 60 (>60) mL/min BUN/Creatinine Ratio 10.0 L (14-18) Glucose 127 H (74-106) mg/dL Calcium 8.1 L (8.5-10.1) mg/dL Magnesium 1.9 (1.8-2.4) mg/dl C-Reactive Protein 0.8 (<1.0) mg/dL Med Orders - Current: Current Medications Acetaminophen (Tylenol) 650 mg PO Q4H PRN PRN Reason: Pain (Mild 1-3)/fever Last Admin: 04/02/17 17:16 Dose: 650 mg Acetaminophen/Butalbital/Caffeine (Fioricet 325-50-40 Mg) 2 tab PO Q6H PRN PRN Reason: Headache/Pain Last Admin: 04/01/17 22:42 Dose: 2 tab Hydrocodone Bitart/Acetaminophen ([place] 325-5 Mg) 1 tab PO Q4H PRN PRN Reason: Pain (moderate 4-6) Last Admin: 04/02/17 17:16 Dose: 1 tab Albuterol (Proventil Neb Soln) 2.5 mg NEB Q2H PRN PRN Reason: Shortness Of Breath/wheezing Bupropion HCl (Wellbutrin Xl) 150 mg PO DAILY JOHNIE Last Admin: 04/02/17 09:50 Dose: 150 mg Hydralazine HCl (Apresoline) 20 mg IVPUSH Q4H PRN PRN Reason: Hypertension Last Admin: 04/02/17 05:29 Dose: 20 mg Hydromorphone HCl (Dilaudid) 0.25 mg IVPUSH Q2H PRN PRN Reason: Pain (severe 7-10) Lorazepam (Ativan) 1 mg IV Q6H PRN PRN Reason: Anxiety Metoprolol Tartrate (Lopressor) 5 mg IVPUSH Q4H PRN PRN Reason: Tachycardia Ondansetron HCl (Zofran) 4 mg IVPUSH Q6H PRN PRN Reason: Nausea/Vomiting Last Admin: 04/02/17 09:51 Dose: 4 mg Scopolamine (Transderm-Scop) 1.5 mg TRDERM Q72H PRN PRN Reason: Nausea/Vomiting Last Admin: 04/01/17 22:42 Dose: 1.5 mg Sodium Chloride (Saline Flush) 10 ml FLUSH ASDIRECTED PRN PRN Reason: Keep Vein Open Temazepam (Restoril) 30 mg PO BEDTIME PRN PRN Reason: Sleep Discontinued Medications Diatrizoate Meglum/Diatrizoate Sod (Gastrografin 37%) 90 ml PO ONETIME ONE Stop: 04/01/17 10:13 Last Admin: 04/01/17 10:39 Dose: 90 ml Diphenhydramine HCl (Benadryl) 50 mg IVPUSH ONETIME ONE Stop: 04/01/17 14:16 Last Admin: 04/01/17 14:23 Dose: 50 mg Hydromorphone HCl (Dilaudid) 1 mg IVPUSH ONETIME ONE Stop: 04/01/17 09:18 Last Admin: 04/01/17 09:30 Dose: 1 mg Sodium Chloride (Normal Saline) 2,000 mls @ 1,000 mls/hr IV .BOLUS STA Stop: 04/01/17 11:14 Last Admin: 04/01/17 09:31 Dose: 1,000 mls/hr Potassium Chloride/Dextrose/Sod Cl (D5 Ns With 20 Meq Kcl) 1,000 mls @ 150 mls/ hr IV ASDIRECTED JOHNIE Last Admin: 04/02/17 02:09 Dose: 150 mls/hr Dextrose/Sodium Chloride (Dextrose 5%-1/2 Ns) 1,000 mls @ 125 mls/hr IV ASDIRECTED JOHNIE Iopamidol (Isovue-300 (61%)) 125 ml IVPUSH ONETIME ONE Stop: 04/01/17 10:13 Last Admin: 04/01/17 10:39 Dose: 125 ml Ondansetron HCl (Zofran) 4 mg IVPUSH ONETIME ONE Stop: 04/01/17 09:16 Last Admin: 04/01/17 09:30 Dose: 4 mg Sodium Chloride (Saline Flush) 10 ml FLUSH ASDIRECTED PRN PRN Reason: Keep Vein Open Last Admin: 04/01/17 09:31 Dose: 10 ml Sodium Chloride (Saline Flush) 10 ml FLUSH ONETIME PRN PRN Reason: IV FLUSH Last Admin: 04/01/17 10:39 Dose: 10 ml - Exam General: alert, oriented, cooperative, no acute distress HEENT: Pupils equal, Pupils reactive, EOMI, Mucous membr. moist/pink Neck: supple, trachea midline, no JVD, no thyromegaly Lungs: Clear to auscultation, Normal respiratory effort Cardiovascular: Regular Rate, Regular Rhythm Abdomen: bowel sounds present, soft, no distension, tenderness (epigastric). No : rigidity, rebound, guarding (Female) Exam: Deferred Back Exam: normal inspection, decreased range of motion Extremities: no edema, normal pulses, no tenderness/swelling, no clubbing, no cyanosis, no calf tenderness Peripheral Pulses: 3+: dorsalis pedis (R) Skin: warm, dry, intact Neurological: no new focal deficit Psy/Mental Status: alert, normal affect, normal mood - Problem List Review Problem List Initiated/Reviewed/Updated: Yes - My Orders Last 24 Hours: My Active Orders 04/01/17 21:37 Acetaminophen/Butalbital/Caff [Fioricet 325-50-40 MG] 2 tab PO Q6H PRN 04/01/17 22:00 Scopolamine [Transderm-Scop] 1.5 mg TRDERM Q72H PRN 04/02/17 09:00 buPROPion [Wellbutrin XL] 150 mg PO DAILY 04/02/17 14:14 Sodium Chloride 0.9% [Saline Flush] 10 ml FLUSH ASDIRECTED PRN 04/02/17 16:59 Communication Order [RC] ASDIRECTED 04/02/17 Dinner Full Liquid Diet [DIET] 04/03/17 05:11 BASIC METABOLIC PANEL,BMP [CHEM] AM CBC WITH AUTO DIFF [HEME] AM MAGNESIUM [CHEM] AM 04/04/17 05:11 BASIC METABOLIC PANEL,BMP [CHEM] AM CBC WITH AUTO DIFF [HEME] AM MAGNESIUM [CHEM] AM 04/05/17 05:11 MAGNESIUM [CHEM] AM - Plan Plan:: Assessment/Plan: Abdominal Epigastric Pain Associated with Eructation - Will resume PPI BID - Add H2B BID - If no relief, she may need outpatient GI with possible EGD to r/o Functional Dyspepsia S/p Acute Toxicity to Weight Loss Drugs - She is on the following meds: diethylpropion 25 mg po BID, Natrexone 50 m gpo daily, Metformin 500 mg po BID (not sure if has already been increased) and Wellbutrin 150 mg po daily - Lost 70lbs so far - She does not eat properly or exercise - She is dependent on Medication only i.e. "easy way out" - Her Metformin was recently up in dose per patient - Will hold off all meds except Wellbutrin - Supportive care and IV fluids S/p Intractable Nausea and Vomiting - 2/2 above - PNR Meds - Supportive Care Morbid Obesity - BMI of 43.5 - Refused Dietary Consult - She does not exercise Plan: She is clinically stable Continue current treatment Routine AM Labs Advance diet as tolerate SW/CM for d/c planning Additional orders as above Possible d/c in am if able to tolerate regular diet
--- NOTE | 2017-04-02 19:40 | PCM.SN ---
- Free Text/Narrative Note: Seen and evaluated patient later this afternoon. She tells me she has a hx/o GERD, when she belches she gets reflux as well. She still complains of abdominal. She is not nauseous or dry heaving with food. Her RUQ U/S showed no acute GB findings. Patient may have Severe GERD/PUD vs Esophageal/Gastric Dysmotility vs Functional Dyspepsia. Consulted Dr. Zepeda for further eval. He will see her in am
[2017-04-02] MEDS: HYDROmorphone 0.5 MG/0.5 ML Syringe IVPUSH PRN (22:00)
[2017-04-02] MEDS: Pantoprazole 40 MG Vial IVPUSH SCH (22:25)
[2017-04-02] MEDS: Famotidine 20 MG Tab PO SCH (22:25)
[2017-04-03] MEDS: Acetaminophen/HYDROcodone 325-5 MG Tab PO PRN ×2 (05:41→20:51)
[2017-04-03] MEDS: Pantoprazole 40 MG Vial IVPUSH SCH (08:28)
[2017-04-03] MEDS: buPROPion 150 MG Tab.ER PO SCH (08:29)
[2017-04-03] MEDS: Famotidine 20 MG Tab PO SCH (08:29)
[2017-04-03] MEDS: Dextrose 5%-0.9% NaCl with KCl 1,000 ML IV SCH ×2 (10:21→15:42)
[2017-04-03] MEDS: Ondansetron 4 MG/2 ML SDV IVPUSH PRN ×2 (11:00→20:43)
[2017-04-03] MEDS ORDERED: Pantoprazole 40 MG Tab.CR PO SCH (12:24)
[2017-04-03] MEDS: HYDROmorphone 0.5 MG/0.5 ML Syringe IVPUSH PRN ×2 (12:37→20:47)
--- NOTE | 2017-04-03 14:36 | PCM.PN ---
- General Info Date of Service: 04/03/17 Functional Status: Reports: tolerating diet (clear liquids), other (complains of constipation, refuses laxative) - Review of Systems General: Reports: No Symptoms HEENT: Reports: no symptoms Pulmonary: Reports: no symptoms Cardiovascular: Reports: No Symptoms Gastrointestinal: Reports: Abdominal pain, Nausea Genitourinary: Reports: no symptoms Musculoskeletal: Reports: no symptoms Skin: Reports: no symptoms Neurological: Reports: No Symptoms Psychiatric: Reports: no symptoms - Patient Data Vitals - most recent: Last Vital Signs Temp 37.5 C 04/03/17 08:11 Pulse 80 04/03/17 08:11 Resp 16 04/03/17 08:11 BP 124/71 04/03/17 08:35 Pulse Ox 97 04/03/17 08:11 Weight - most recent: 125.01 kg I&O - last 24 hours: Intake & Output 04/02/17 04/03/17 04/03/17 22:59 06:59 14:59 Intake Total 860 25 Output Total 1145 200 Balance -285 -175 Lab Results last 24 hrs: Laboratory Results - last 24 hr 04/03/17 04/03/17 Range/Units 05:37 05:37 WBC 7.90 (3.98-10.04) K/mm3 RBC 5.44 H (3.98-5.22) M/mm3 Hgb 14.9 (11.2-15.7) gm/L Hct 45.3 H (34.1-44.9) % MCV 83.3 (79.4-94.8) fl MCH 27.4 (25.6-32.2) pg MCHC 32.9 (32.2-35.5) g/dl RDW Std Deviation 42.1 (36.4-46.3) fL Plt Count 286 (182-369) K/mm3 MPV 10.3 (9.4-12.3) fl Neut % (Auto) 67.8 (34.0-71.1) % Lymph % (Auto) 21.6 (19.3-51.7) % [place] % (Auto) 8.1 (4.7-12.5) % Eos % (Auto) 1.6 (0.7-5.8) Baso % (Auto) 0.6 (0.1-1.2) % Neut # (Auto) 5.35 (1.56-6.13) K/mm3 Lymph # (Auto) 1.71 (1.18-3.74) K/mm3 [place] # (Auto) 0.64 H (0.24-0.36) K/mm3 Eos # (Auto) 0.13 (0.04-0.36) K/mm3 Baso # (Auto) 0.05 (0.01-0.08) K/mm3 Sodium 141 (136-145) mEq/L Potassium 3.5 (3.5-5.1) mEq/L Chloride 105 (98-107) mEq/L Carbon Dioxide 24 (21-32) mEq/L Anion Gap 15.5 H (5-15) BUN 11 (7-18) mg/dL Creatinine 0.9 (0.55-1.02) mg/dL Est Cr Clr Drug Dosing 83.23 mL/min Estimated GFR (MDRD) > 60 (>60) mL/min BUN/Creatinine Ratio 12.2 L (14-18) Glucose 93 (74-106) mg/dL Calcium 8.8 (8.5-10.1) mg/dL Magnesium 2.0 (1.8-2.4) mg/dl Free T4 1.72 H (0.76-1.46) ng/dL TSH 3rd Generation 1.477 (0.358-3.74) uIU/mL Med Orders - Current: Current Medications Acetaminophen (Tylenol) 650 mg PO Q4H PRN PRN Reason: Pain (Mild 1-3)/fever Last Admin: 04/02/17 17:16 Dose: 650 mg Acetaminophen/Butalbital/Caffeine (Fioricet 325-50-40 Mg) 2 tab PO Q6H PRN PRN Reason: Headache/Pain Last Admin: 04/01/17 22:42 Dose: 2 tab Hydrocodone Bitart/Acetaminophen ([place] 325-5 Mg) 1 tab PO Q4H PRN PRN Reason: Pain (moderate 4-6) Last Admin: 04/03/17 05:41 Dose: 1 tab Albuterol (Proventil Neb Soln) 2.5 mg NEB Q2H PRN PRN Reason: Shortness Of Breath/wheezing Bupropion HCl (Wellbutrin Xl) 150 mg PO DAILY JOHNIE Last Admin: 04/03/17 08:29 Dose: 150 mg Hydralazine HCl (Apresoline) 20 mg IVPUSH Q4H PRN PRN Reason: Hypertension Last Admin: 04/02/17 05:29 Dose: 20 mg Hydromorphone HCl (Dilaudid) 0.25 mg IVPUSH Q2H PRN PRN Reason: Pain (severe 7-10) Last Admin: 04/03/17 12:37 Dose: 0.25 mg Potassium Chloride/Dextrose/Sod Cl (D5 Ns With 20 Meq Kcl) 1,000 mls @ 100 mls/ hr IV ASDIRECTED [facility] Last Admin: 04/03/17 10:21 Dose: 100 mls/hr Lorazepam (Ativan) 1 mg IV Q6H PRN PRN Reason: Anxiety Metoprolol Tartrate (Lopressor) 5 mg IVPUSH Q4H PRN PRN Reason: Tachycardia Ondansetron HCl (Zofran) 4 mg IVPUSH Q6H PRN PRN Reason: Nausea/Vomiting Last Admin: 04/03/17 11:00 Dose: 4 mg Pantoprazole Sodium (Protonix) 40 mg PO Q12H [facility] Scopolamine (Transderm-Scop) 1.5 mg TRDERM Q72H PRN PRN Reason: Nausea/Vomiting Last Admin: 04/01/17 22:42 Dose: 1.5 mg Sodium Chloride (Saline Flush) 10 ml FLUSH ASDIRECTED PRN PRN Reason: Keep Vein Open Temazepam (Restoril) 30 mg PO BEDTIME PRN PRN Reason: Sleep Discontinued Medications Diatrizoate Meglum/Diatrizoate Sod (Gastrografin 37%) 90 ml PO ONETIME ONE Stop: 04/01/17 10:13 Last Admin: 04/01/17 10:39 Dose: 90 ml Diphenhydramine HCl (Benadryl) 50 mg IVPUSH ONETIME ONE Stop: 04/01/17 14:16 Last Admin: 04/01/17 14:23 Dose: 50 mg Famotidine (Pepcid) 20 mg PO BID [facility] Last Admin: 04/03/17 08:29 Dose: 20 mg Hydromorphone HCl (Dilaudid) 1 mg IVPUSH ONETIME ONE Stop: 04/01/17 09:18 Last Admin: 04/01/17 09:30 Dose: 1 mg Sodium Chloride (Normal Saline) 2,000 mls @ 1,000 mls/hr IV .BOLUS STA Stop: 04/01/17 11:14 Last Admin: 04/01/17 09:31 Dose: 1,000 mls/hr Potassium Chloride/Dextrose/Sod Cl (D5 Ns With 20 Meq Kcl) 1,000 mls @ 150 mls/ hr IV ASDIRECTED JOHNIE Last Admin: 04/02/17 02:09 Dose: 150 mls/hr Dextrose/Sodium Chloride (Dextrose 5%-1/2 Ns) 1,000 mls @ 125 mls/hr IV ASDIRECTED JOHNIE Iopamidol (Isovue-300 (61%)) 125 ml IVPUSH ONETIME ONE Stop: 04/01/17 10:13 Last Admin: 04/01/17 10:39 Dose: 125 ml Ondansetron HCl (Zofran) 4 mg IVPUSH ONETIME ONE Stop: 04/01/17 09:16 Last Admin: 04/01/17 09:30 Dose: 4 mg Pantoprazole Sodium (Protonix Iv) 40 mg IVPUSH Q12H JOHNIE Last Admin: 04/03/17 08:28 Dose: 40 mg Sodium Chloride (Saline Flush) 10 ml FLUSH ASDIRECTED PRN PRN Reason: Keep Vein Open Last Admin: 04/01/17 09:31 Dose: 10 ml Sodium Chloride (Saline Flush) 10 ml FLUSH ONETIME PRN PRN Reason: IV FLUSH Last Admin: 04/01/17 10:39 Dose: 10 ml - Exam Quality Assessment: DVT prophylaxis General: alert, oriented, cooperative, no acute distress HEENT: Pupils equal, Pupils reactive, EOMI Neck: supple, trachea midline, no JVD Lungs: Normal respiratory effort Cardiovascular: Regular Rate, Regular Rhythm Abdomen: bowel sounds present, soft, tenderness (epigastric) (Female) Exam: Deferred Back Exam: normal inspection Extremities: normal pulses Skin: warm Neurological: no new focal deficit, normal gait, normal speech Psy/Mental Status: alert - Problem List & Annotations (1) Abdominal pain SNOMED Code(s): 81155647 Code(s): R10.9 - UNSPECIFIED ABDOMINAL PAIN Status: Acute Current Visit: Yes Qualifiers: Abdominal location: upper abdomen, unspecified Qualified Code(s): R10.10 - Upper abdominal pain, unspecified (2) Dehydration SNOMED Code(s): 88283621 Code(s): E86.0 - DEHYDRATION Status: Acute Current Visit: Yes (3) Hypokalemia SNOMED Code(s): 92189463 Code(s): E87.6 - HYPOKALEMIA Status: Acute Current Visit: Yes (4) Nausea & vomiting SNOMED Code(s): 24725696 Code(s): R11.2 - NAUSEA WITH VOMITING, UNSPECIFIED Status: Acute Current Visit: Yes Qualifiers: Vomiting type: unspecified Vomiting Intractability: intractable Qualified Code(s): R11.2 - Nausea with vomiting, unspecified (5) Abdominal discomfort SNOMED Code(s): 47680228 Code(s): R10.9 - UNSPECIFIED ABDOMINAL PAIN Status: Acute Current Visit: No (6) Alcohol abuse SNOMED Code(s): 52163946 Code(s): F10.10 - ALCOHOL ABUSE, UNCOMPLICATED Status: Acute Current Visit: No (7) Gastritis SNOMED Code(s): 9093537 Code(s): K29.70 - GASTRITIS, UNSPECIFIED, WITHOUT BLEEDING Status: Acute Current Visit: No Qualifiers: Gastritis type: other gastritis Chronicity: acute Gastritis bleeding: without bleeding Qualified Code(s): K29.00 - Acute gastritis without bleeding - Problem List Review Problem List Initiated/Reviewed/Updated: Yes - My Orders Last 24 Hours: My Active Orders 04/03/17 11:27 CULTURE URINE [RM] Routine 04/03/17 12:53 HIDA with EF [Cholescintigraphy w Pharm Int] [NM] Routine 04/03/17 Dinner Clear Liquid Diet [DIET] - Plan Plan:: Assessment/Plan: Abdominal Epigastric Pain Associated with Eructation - Will resume PPI BID - Add H2B BID - If no relief, she may need outpatient GI with possible EGD to r/o Functional Dyspepsia *HIDA scan ordered, pending *Evaluation by gen surg by Dr Zepeda, completed. S/p Acute Toxicity to Weight Loss Drugs - She is on the following meds: diethylpropion 25 mg po BID, Natrexone 50 m gpo daily, Metformin 500 mg po BID (not sure if has already been increased) and Wellbutrin 150 mg po daily - Lost 70lbs so far - She does not eat properly or exercise - She is dependent on Medication only i.e. "easy way out" - Her Metformin was recently up in dose per patient - Will hold off all meds except Wellbutrin - Supportive care and IV fluids S/p Intractable Nausea and Vomiting - 2/2 above - PNR Meds - Supportive Care Morbid Obesity - BMI of 43.5 - Refused Dietary Consult - She does not exercise Plan: Psychiatric consult re: depression She is clinically stable Continue current treatment Routine AM Labs Advance diet as tolerate, continue clear liquids SW/CM for d/c planning Additional orders as above DC 48 hours expected
--- NOTE | 2017-04-03 18:00 | PCM.CONSN ---
- General Info Date of Service: 04/03/17 - Patient Data Vitals - most recent: Last Vital Signs Temp 99.1 F 04/03/17 15:45 Pulse 79 04/03/17 15:45 Resp 16 04/03/17 15:45 BP 124/83 04/03/17 15:45 Pulse Ox 100 04/03/17 15:45 Weight - most recent: 125.01 kg I&O - last 24 hours: Intake & Output 04/03/17 04/03/17 04/03/17 07:59 15:59 23:59 Intake Total 25 961 100 Output Total 200 700 Balance -175 961 -600 Lab Results last 24 hrs: Laboratory Results - last 24 hr 04/03/17 04/03/17 Range/Units 05:37 05:37 WBC 7.90 (3.98-10.04) K/mm3 RBC 5.44 H (3.98-5.22) M/mm3 Hgb 14.9 (11.2-15.7) gm/L Hct 45.3 H (34.1-44.9) % MCV 83.3 (79.4-94.8) fl MCH 27.4 (25.6-32.2) pg MCHC 32.9 (32.2-35.5) g/dl RDW Std Deviation 42.1 (36.4-46.3) fL Plt Count 286 (182-369) K/mm3 MPV 10.3 (9.4-12.3) fl Neut % (Auto) 67.8 (34.0-71.1) % Lymph % (Auto) 21.6 (19.3-51.7) % [place] % (Auto) 8.1 (4.7-12.5) % Eos % (Auto) 1.6 (0.7-5.8) Baso % (Auto) 0.6 (0.1-1.2) % Neut # (Auto) 5.35 (1.56-6.13) K/mm3 Lymph # (Auto) 1.71 (1.18-3.74) K/mm3 [place] # (Auto) 0.64 H (0.24-0.36) K/mm3 Eos # (Auto) 0.13 (0.04-0.36) K/mm3 Baso # (Auto) 0.05 (0.01-0.08) K/mm3 Sodium 141 (136-145) mEq/L Potassium 3.5 (3.5-5.1) mEq/L Chloride 105 (98-107) mEq/L Carbon Dioxide 24 (21-32) mEq/L Anion Gap 15.5 H (5-15) BUN 11 (7-18) mg/dL Creatinine 0.9 (0.55-1.02) mg/dL Est Cr Clr Drug Dosing 83.23 mL/min Estimated GFR (MDRD) > 60 (>60) mL/min BUN/Creatinine Ratio 12.2 L (14-18) Glucose 93 (74-106) mg/dL Calcium 8.8 (8.5-10.1) mg/dL Magnesium 2.0 (1.8-2.4) mg/dl Free T4 1.72 H (0.76-1.46) ng/dL TSH 3rd Generation 1.477 (0.358-3.74) uIU/mL Med Orders - Current: Current Medications Acetaminophen (Tylenol) 650 mg PO Q4H PRN PRN Reason: Pain (Mild 1-3)/fever Last Admin: 04/02/17 17:16 Dose: 650 mg Acetaminophen/Butalbital/Caffeine (Fioricet 325-50-40 Mg) 2 tab PO Q6H PRN PRN Reason: Headache/Pain Last Admin: 04/01/17 22:42 Dose: 2 tab Hydrocodone Bitart/Acetaminophen ([place] 325-5 Mg) 1 tab PO Q4H PRN PRN Reason: Pain (moderate 4-6) Last Admin: 04/03/17 05:41 Dose: 1 tab Albuterol (Proventil Neb Soln) 2.5 mg NEB Q2H PRN PRN Reason: Shortness Of Breath/wheezing Bupropion HCl (Wellbutrin Xl) 150 mg PO DAILY JOHNIE Last Admin: 04/03/17 08:29 Dose: 150 mg Hydralazine HCl (Apresoline) 20 mg IVPUSH Q4H PRN PRN Reason: Hypertension Last Admin: 04/02/17 05:29 Dose: 20 mg Hydromorphone HCl (Dilaudid) 0.25 mg IVPUSH Q2H PRN PRN Reason: Pain (severe 7-10) Last Admin: 04/03/17 12:37 Dose: 0.25 mg Potassium Chloride/Dextrose/Sod Cl (D5 Ns With 20 Meq Kcl) 1,000 mls @ 100 mls/ hr IV ASDIRECTED [facility] Last Admin: 04/03/17 15:42 Dose: 100 mls/hr Lorazepam (Ativan) 1 mg IV Q6H PRN PRN Reason: Anxiety Metoprolol Tartrate (Lopressor) 5 mg IVPUSH Q4H PRN PRN Reason: Tachycardia Ondansetron HCl (Zofran) 4 mg IVPUSH Q6H PRN PRN Reason: Nausea/Vomiting Last Admin: 04/03/17 11:00 Dose: 4 mg Pantoprazole Sodium (Protonix) 40 mg PO Q12H [facility] Scopolamine (Transderm-Scop) 1.5 mg TRDERM Q72H PRN PRN Reason: Nausea/Vomiting Last Admin: 04/01/17 22:42 Dose: 1.5 mg Sodium Chloride (Saline Flush) 10 ml FLUSH ASDIRECTED PRN PRN Reason: Keep Vein Open Temazepam (Restoril) 30 mg PO BEDTIME PRN PRN Reason: Sleep Discontinued Medications Diatrizoate Meglum/Diatrizoate Sod (Gastrografin 37%) 90 ml PO ONETIME ONE Stop: 04/01/17 10:13 Last Admin: 04/01/17 10:39 Dose: 90 ml Diphenhydramine HCl (Benadryl) 50 mg IVPUSH ONETIME ONE Stop: 04/01/17 14:16 Last Admin: 04/01/17 14:23 Dose: 50 mg Famotidine (Pepcid) 20 mg PO BID [facility] Last Admin: 04/03/17 08:29 Dose: 20 mg Hydromorphone HCl (Dilaudid) 1 mg IVPUSH ONETIME ONE Stop: 04/01/17 09:18 Last Admin: 04/01/17 09:30 Dose: 1 mg Sodium Chloride (Normal Saline) 2,000 mls @ 1,000 mls/hr IV .BOLUS STA Stop: 04/01/17 11:14 Last Admin: 04/01/17 09:31 Dose: 1,000 mls/hr Potassium Chloride/Dextrose/Sod Cl (D5 Ns With 20 Meq Kcl) 1,000 mls @ 150 mls/ hr IV ASDIRECTED [facility] Last Admin: 04/02/17 02:09 Dose: 150 mls/hr Dextrose/Sodium Chloride (Dextrose 5%-1/2 Ns) 1,000 mls @ 125 mls/hr IV ASDIRECTED JOHNIE Iopamidol (Isovue-300 (61%)) 125 ml IVPUSH ONETIME ONE Stop: 04/01/17 10:13 Last Admin: 04/01/17 10:39 Dose: 125 ml Ondansetron HCl (Zofran) 4 mg IVPUSH ONETIME ONE Stop: 04/01/17 09:16 Last Admin: 04/01/17 09:30 Dose: 4 mg Pantoprazole Sodium (Protonix Iv) 40 mg IVPUSH Q12H [facility] Last Admin: 04/03/17 08:28 Dose: 40 mg Pantoprazole Sodium (Protonix) 40 mg PO Q12H [facility] Last Admin: 04/03/17 16:20 Dose: Not Given Sodium Chloride (Saline Flush) 10 ml FLUSH ASDIRECTED PRN PRN Reason: Keep Vein Open Last Admin: 04/01/17 09:31 Dose: 10 ml Sodium Chloride (Saline Flush) 10 ml FLUSH ONETIME PRN PRN Reason: IV FLUSH Last Admin: 04/01/17 10:39 Dose: 10 ml Consult PN Assessment/Plan Procedures: Procedures ASSAY OF LIPASE (03/29/17) ASSAY OF MAGNESIUM (03/31/16) C-REACTIVE PROTEIN (03/27/17) CHORIONIC GONADOTROPIN ASSAY (03/31/16) COMPLETE CBC AUTOMATED (03/31/16) COMPLETE CBC W/AUTO DIFF WBC (03/29/17) COMPREHEN METABOLIC PANEL (03/29/17) ECHO EXAM OF ABDOMEN (03/29/17) EMERGENCY DEPT VISIT (03/29/17) HYDRATE IV INFUSION ADD-ON (03/29/17) PROTHROMBIN TIME (03/31/16) ROUTINE VENIPUNCTURE (03/29/17) THER/PROPH/DIAG INJ IV PUSH (03/29/17) THER/PROPH/DIAG INJ SC/IM (03/27/17) TX/PRO/DX INJ NEW DRUG ADDON (03/29/17) TX/PRO/DX INJ SAME DRUG CASE MANAGERS (03/27/17) URINALYSIS AUTO W/SCOPE (03/29/17) URINE TEST (03/27/17) X-RAY EXAM OF ABDOMEN (03/27/17) Problem List Initiated/Reviewed/Updated: Yes My Orders last 24 hours: My Active Orders 04/03/17 17:57 Verify Patient Consent Obtain [RC] ASDIRECTED 04/03/17 Breakfast Nothing per Oral After Midnight Diet [DIET] 04/04/17 13:00 Schedule Procedure [COMM] Routine Plan: surgical consult [id number]
[2017-04-03] MEDS: Potassium Chloride 10% 20 MEQ/15 ML Soln 30 ML UD Cup PO SCH (20:50)
[2017-04-03] MEDS: Pantoprazole 40 MG Tab.CR PO SCH (20:52)
[2017-04-04] MEDS: Dextrose 5%-0.9% NaCl with KCl 1,000 ML IV SCH ×2 (01:07→16:14)
[2017-04-04] MEDS: Ondansetron 4 MG/2 ML SDV IVPUSH PRN (08:04)
[2017-04-04] MEDS: buPROPion 150 MG Tab.ER PO SCH (08:34)
[2017-04-04] MEDS: Potassium Chloride 10% 20 MEQ/15 ML Soln 30 ML UD Cup PO SCH ×2 (08:34→21:39)
[2017-04-04] MEDS: Pantoprazole 40 MG Tab.CR PO SCH (08:34)
--- NOTE | 2017-04-04 08:39 | CONS ---
CONSULTING PHYSICIAN: Mateus Zepeda MD DATE OF CONSULTATION: 04/03/2017 HISTORY OF PRESENT ILLNESS: A 36-year-old who has come into the hospital with pain in the epigastric region at least for the last week. It is described as intense pressure sensation associated with nausea and vomiting and at first diarrhea, the diarrhea has subsided. She states every time she eats something, she has intense pain in the epigastric region. She first came in to the emergency room on 03/27/2017. X- ray of the abdomen was unremarkable. The emergency room description of the event indicates nausea and vomiting. At the time, she had 20+ diarrhea stools. Bloated and cramps, pain located in the upper abdomen. The patient did admit to smoking some marijuana but not for a couple of days and has a history of alcohol use. The patient was discharged with Zofran for her nausea and returned to the emergency room on the . At this time, emergency room physician noted pain, nausea, and vomiting. The diarrhea had pretty much resolved and she tried to eat or drink anything, immediately cramps and epigastric pain would develop. Her bilirubin was 0.5, today it is slightly elevated 1.5. An ultrasound done that admission was unremarkable and she returned again on the and CT scan was performed which was negative. Her amylase was obtained, was normal. TSH was normal and only that bilirubin was 1.3, slightly elevated liver enzyme. The patient has continued to be in the hospital and the pain is stabilized but still when she eats, she has discomfort in the epigastric region. PAST MEDICAL HISTORY: Indicates a 70-pound weight loss. She is on weight loss medication and she takes Glucophage, although she states she does not have any diabetes. Her BMI is elevated at 43.5. Never had any surgical history except for a D and C, and never smoked. Has used alcohol and marijuana. REVIEW OF SYSTEMS: No chest pain, shortness of breath, cough, hoarseness, wheezing, fainting, weakness, numbness, or convulsions. No lower extremity edema. No swelling. Has had diarrhea, which was resolved. Laboratory data reviewed. FAMILY HISTORY: Negative. PHYSICAL EXAMINATION: GENERAL: Reveals alert, cooperative female. HEENT: Eyes unremarkable. Sclerae white. Oral cavity, healthy mucous membrane. NECK: Supple. No nodes. No thyromegaly. LUNGS: Clear. HEART: Tones regular rate. No S3, S4, jugular venous distention. ABDOMEN: Shows some mild tenderness, guarding in the epigastric region. The rest of the quadrants unremarkable. No ventral inguinal hernias. EXTREMITIES: No angulation deformities. SKIN: Normal. PSYCHIATRIC: Normal, somewhat flat affect, however. Mental status alert x3. No motor or sensory deficit. Cranial nerves 3 through 12 intact. ASSESSMENT: Epigastric pain. RECOMMENDATION: Upper GI endoscopy. I am going to work her up further with a HIDA scan. MMODAL /[id number]
--- NOTE | 2017-04-04 08:54 | PCM.PREANE ---
Preanesthetic Assessment - Anesthesia/Transfusion/Family Hx Anesthesia History: Prior Anesthesia Without Reaction Family History of Anesthesia Reaction: No Transfusion History: No Prior Transfusion(s) - Review of Systems General: Fever (since illness last ), Weakness, Fatigue, Chills Pulmonary: No Symptoms Cardiovascular: No Symptoms Gastrointestinal: Abdominal pain, Nausea Neurological: No Symptoms Other: Reports: Easy Bleeding, Easy Bruising, Sinus Problem - Physical Assessment NPO Status Date: 04/03/17 NPO Status Time: 15:00 Pulse: 86 O2 Sat by Pulse Oximetry: 96 Respiratory Rate: 16 Blood Pressure: 155/88 Temperature: 98.8 F Vital Signs: Last Vital Signs Temp 98.8 F 04/04/17 07:38 Pulse 86 04/04/17 07:38 Resp 16 04/04/17 07:38 BP 155/88 H 04/04/17 07:38 Pulse Ox 96 04/04/17 07:38 Height: 5 ft 7 in Weight: 125.509 kg ASA Class: 2E Mental Status: Alert & Oriented x3 Airway Class: Mallampati = 2 Dentition: Reports: Normal Dentition Thyro-Mental Finger Breadths: 3 Mouth Opening Finger Breadths: 3 ROM/Head Extension: Full Lungs: Clear to auscultation, Normal respiratory effort Cardiovascular: Regular Rate, Regular Rhythm - Lab Values: Laboratory Last Values WBC 6.55 K/mm3 (3.98-10.04) 04/04/17 05:46 RBC 5.11 M/mm3 (3.98-5.22) 04/04/17 05:46 Hgb 14.5 gm/L (11.2-15.7) 04/04/17 05:46 Hct 43.4 % (34.1-44.9) 04/04/17 05:46 MCV 84.9 fl (79.4-94.8) 04/04/17 05:46 MCH 28.4 pg (25.6-32.2) 04/04/17 05:46 MCHC 33.4 g/dl (32.2-35.5) 04/04/17 05:46 RDW Std Deviation 42.5 fL (36.4-46.3) 04/04/17 05:46 Plt Count 250 K/mm3 (182-369) 04/04/17 05:46 MPV 10.2 fl (9.4-12.3) 04/04/17 05:46 Neut % (Auto) 67.9 % (34.0-71.1) 04/04/17 05:46 Lymph % (Auto) 21.2 % (19.3-51.7) 04/04/17 05:46 Coal % (Auto) 8.4 % (4.7-12.5) 04/04/17 05:46 Eos % (Auto) 2.0 (0.7-5.8) 04/04/17 05:46 Baso % (Auto) 0.5 % (0.1-1.2) 04/04/17 05:46 Neut # (Auto) 4.45 K/mm3 (1.56-6.13) 04/04/17 05:46 Lymph # (Auto) 1.39 K/mm3 (1.18-3.74) 04/04/17 05:46 Coal # (Auto) 0.55 K/mm3 (0.24-0.36) H 04/04/17 05:46 Eos # (Auto) 0.13 K/mm3 (0.04-0.36) 04/04/17 05:46 Baso # (Auto) 0.03 K/mm3 (0.01-0.08) 04/04/17 05:46 Manual Slide Review Normal smear 04/01/17 09:34 Sodium 140 mEq/L (136-145) 04/04/17 05:46 Potassium 3.9 mEq/L (3.5-5.1) 04/04/17 05:46 Chloride 106 mEq/L (98-107) 04/04/17 05:46 Carbon Dioxide 25 mEq/L (21-32) 04/04/17 05:46 Anion Gap 12.9 (5-15) 04/04/17 05:46 BUN 9 mg/dL (7-18) 04/04/17 05:46 Creatinine 0.8 mg/dL (0.55-1.02) 04/04/17 05:46 Est Cr Clr Drug Dosing 93.63 mL/min 04/04/17 05:46 Estimated GFR (MDRD) > 60 mL/min (>60) 04/04/17 05:46 BUN/Creatinine Ratio 11.3 (14-18) L 04/04/17 05:46 Glucose 107 mg/dL (74-106) H 04/04/17 05:46 Calcium 8.3 mg/dL (8.5-10.1) L 04/04/17 05:46 Magnesium 2.0 mg/dl (1.8-2.4) 04/04/17 05:46 Total Bilirubin 1.3 mg/dL (0.2-1.0) H 04/01/17 09:34 AST 31 U/L (15-37) 04/01/17 09:34 ALT 65 U/L (14-59) H 04/01/17 09:34 Alkaline Phosphatase 96 U/L (46-116) 04/01/17 09:34 C-Reactive Protein 0.8 mg/dL (<1.0) 04/02/17 05:20 Total Protein 8.7 g/dl (6.4-8.2) H 04/01/17 09:34 Albumin 4.1 g/dl (3.4-5.0) 04/01/17 09:34 Globulin 4.6 gm/dL 04/01/17 09:34 Albumin/Globulin Ratio 0.9 (1-2) L 04/01/17 09:34 Lipase 212 U/L (73-393) 04/01/17 09:34 Free T4 1.72 ng/dL (0.76-1.46) H 04/03/17 05:37 TSH 3rd Generation 1.477 uIU/mL (0.358-3.74) 04/03/17 05:37 HCG, Qual Negative (NEGATIVE) 04/01/17 09:34 Urine Color Yellow (Yellow) 04/01/17 10:55 Urine Appearance Clear (Clear) 04/01/17 10:55 Urine pH 6.5 (5.0-8.0) 04/01/17 10:55 Ur Specific Pedro 1.015 (1.005-1.030) 04/01/17 10:55 Urine Protein Negative (Negative) 04/01/17 10:55 Urine Glucose (UA) Negative (Negative) 04/01/17 10:55 Urine Ketones Trace (Negative) H 04/01/17 10:55 Urine Occult Blood Negative (Negative) 04/01/17 10:55 Urine Nitrite Negative (Negative) 04/01/17 10:55 Urine Bilirubin Negative (Negative) 04/01/17 10:55 Urine Urobilinogen 0.2 (0.2-1.0) 04/01/17 10:55 Ur Leukocyte Esterase Trace (Negative) H 04/01/17 10:55 Urine RBC 0-5 /hpf (0-5) 04/01/17 10:55 Urine WBC 5-10 /hpf (0-5) H 04/01/17 10:55 Ur Epithelial Cells 5-10 /hpf (0-5) H 04/01/17 10:55 Urine Bacteria Rare /hpf (FEW) 04/01/17 10:55 Urine Mucus Few /hpf (FEW) 04/01/17 10:55 - Allergies Allergies/Adverse Reactions: Allergies Allergy/AdvReac Type Severity Reaction Status Date / Time amoxicillin Allergy Hives Verified 04/01/17 08:57 Penicillins Allergy Hives Verified 04/01/17 08:57 - Blood Blood Available: No - Acknowledgements Anesthesia Type Planned: MAC Pt an Appropriate Candidate for the Planned Anesthesia: Yes Alternatives and Risks of Anesthesia Discussed w Pt/Guardian: Yes Pt/Guardian Understands and Agrees with Anesthesia Plan: Yes PreAnesthesia Questionnaire - Past Health History Medical/Surgical History: Denies Medical/Surgical History Cardiovascular History: Reports: None Respiratory History: Reports: None Gastrointestinal History: Reports: [employer] History: Reports: (miscarrriage 2010) Endocrine/Metabolic History: Reports: Obesity/BMI 30+ Oncologic (Cancer) History: Reports: None - Past Surgical History Female Surgical History: Reports: D&C - History Comment History Comment: wellbutrin and metformin pills for weight loss - SUBSTANCE USE Smoking Status *Q: Never Smoker Tobacco Use Within Last Twelve Months: Cigarettes Second Hand Smoke Exposure: Yes Days Per Week of Alcohol Use: 1 (maybe once a month) Number of Drinks Per Day: 1 Total Drinks Per Week: 1 Recreational Drug Use History: No - HOME MEDS Home Medications: Home Meds Naltrexone 50 mg PO DAILY 04/01/17 [History] buPROPion [Wellbutrin XL] 150 mg PO DAILY 04/01/17 [History] metFORMIN [Glucophage XR] 500 mg PO DAILY 04/01/17 [History] Diethylpropion HCl [Diethylpropion] 50 mg PO DAILY 04/02/17 [History] metFORMIN HCl [Metformin HCl ER] 1,000 mg PO BEDTIME 04/02/17 [History] - CURRENT (IN HOUSE) MEDS Current Meds: Current Medications Acetaminophen (Tylenol) 650 mg PO Q4H PRN PRN Reason: Pain (Mild 1-3)/fever Last Admin: 04/02/17 17:16 Dose: 650 mg Acetaminophen/Butalbital/Caffeine (Fioricet 325-50-40 Mg) 2 tab PO Q6H PRN PRN Reason: Headache/Pain Last Admin: 04/01/17 22:42 Dose: 2 tab Hydrocodone Bitart/Acetaminophen ([place] 325-5 Mg) 1 tab PO Q4H PRN PRN Reason: Pain (moderate 4-6) Last Admin: 04/03/17 20:51 Dose: 1 tab Albuterol (Proventil Neb Soln) 2.5 mg NEB Q2H PRN PRN Reason: Shortness Of Breath/wheezing Bupropion HCl (Wellbutrin Xl) 150 mg PO DAILY [facility] Last Admin: 04/04/17 08:34 Dose: Not Given Hydralazine HCl (Apresoline) 20 mg IVPUSH Q4H PRN PRN Reason: Hypertension Last Admin: 04/02/17 05:29 Dose: 20 mg Hydromorphone HCl (Dilaudid) 0.25 mg IVPUSH Q2H PRN PRN Reason: Pain (severe 7-10) Last Admin: 04/03/17 20:47 Dose: 0.25 mg Potassium Chloride/Dextrose/Sod Cl (D5 Ns With 20 Meq Kcl) 1,000 mls @ 100 mls/ hr IV ASDIRECTED [facility] Last Admin: 04/04/17 01:07 Dose: 100 mls/hr Lorazepam (Ativan) 1 mg IV Q6H PRN PRN Reason: Anxiety Metoprolol Tartrate (Lopressor) 5 mg IVPUSH Q4H PRN PRN Reason: Tachycardia Ondansetron HCl (Zofran) 4 mg IVPUSH Q6H PRN PRN Reason: Nausea/Vomiting Last Admin: 04/04/17 08:04 Dose: 4 mg Pantoprazole Sodium (Protonix) 40 mg PO Q12H [facility] Last Admin: 04/04/17 08:34 Dose: Not Given Potassium Chloride (Potassium Chloride) 40 meq PO BID [facility] Last Admin: 04/04/17 08:34 Dose: Not Given Scopolamine (Transderm-Scop) 1.5 mg TRDERM Q72H PRN PRN Reason: Nausea/Vomiting Last Admin: 04/01/17 22:42 Dose: 1.5 mg Sodium Chloride (Saline Flush) 10 ml FLUSH ASDIRECTED PRN PRN Reason: Keep Vein Open Temazepam (Restoril) 30 mg PO BEDTIME PRN PRN Reason: Sleep Discontinued Medications Diatrizoate Meglum/Diatrizoate Sod (Gastrografin 37%) 90 ml PO ONETIME ONE Stop: 04/01/17 10:13 Last Admin: 04/01/17 10:39 Dose: 90 ml Diphenhydramine HCl (Benadryl) 50 mg IVPUSH ONETIME ONE Stop: 04/01/17 14:16 Last Admin: 04/01/17 14:23 Dose: 50 mg Famotidine (Pepcid) 20 mg PO BID [facility] Last Admin: 04/03/17 08:29 Dose: 20 mg Hydromorphone HCl (Dilaudid) 1 mg IVPUSH ONETIME ONE Stop: 04/01/17 09:18 Last Admin: 04/01/17 09:30 Dose: 1 mg Sodium Chloride (Normal Saline) 2,000 mls @ 1,000 mls/hr IV .BOLUS STA Stop: 04/01/17 11:14 Last Admin: 04/01/17 09:31 Dose: 1,000 mls/hr Potassium Chloride/Dextrose/Sod Cl (D5 Ns With 20 Meq Kcl) 1,000 mls @ 150 mls/ hr IV ASDIRECTED [facility] Last Admin: 04/02/17 02:09 Dose: 150 mls/hr Dextrose/Sodium Chloride (Dextrose 5%-1/2 Ns) 1,000 mls @ 125 mls/hr IV ASDIRECTED [facility] Iopamidol (Isovue-300 (61%)) 125 ml IVPUSH ONETIME ONE Stop: 04/01/17 10:13 Last Admin: 04/01/17 10:39 Dose: 125 ml Ondansetron HCl (Zofran) 4 mg IVPUSH ONETIME ONE Stop: 04/01/17 09:16 Last Admin: 04/01/17 09:30 Dose: 4 mg Pantoprazole Sodium (Protonix Iv) 40 mg IVPUSH Q12H [facility] Last Admin: 04/03/17 08:28 Dose: 40 mg Pantoprazole Sodium (Protonix) 40 mg PO Q12H [facility] Last Admin: 04/03/17 16:20 Dose: Not Given Sodium Chloride (Saline Flush) 10 ml FLUSH ASDIRECTED PRN PRN Reason: Keep Vein Open Last Admin: 04/01/17 09:31 Dose: 10 ml Sodium Chloride (Saline Flush) 10 ml FLUSH ONETIME PRN PRN Reason: IV FLUSH Last Admin: 04/01/17 10:39 Dose: 10 ml
--- NOTE | 2017-04-04 09:41 | PCM.PN ---
- General Info Date of Service: 04/04/17 Functional Status: Reports: ambulating, urinating - Review of Systems General: Reports: No Symptoms HEENT: Reports: no symptoms Pulmonary: Reports: no symptoms Cardiovascular: Reports: No Symptoms Gastrointestinal: Reports: Abdominal pain, Constipation, Nausea, Vomiting Genitourinary: Reports: no symptoms Musculoskeletal: Reports: no symptoms Skin: Reports: no symptoms Neurological: Reports: No Symptoms Psychiatric: Reports: no symptoms - Patient Data Vitals - most recent: Last Vital Signs Temp 37.1 C 04/04/17 08:56 Pulse 86 04/04/17 08:56 Resp 16 04/04/17 08:56 BP 155/88 H 04/04/17 08:56 Pulse Ox 96 04/04/17 08:56 Weight - most recent: 125.509 kg I&O - last 24 hours: Intake & Output 04/03/17 04/04/17 04/04/17 22:59 06:59 14:59 Intake Total 1181 1086 Output Total 700 Balance 481 1086 Lab Results last 24 hrs: Laboratory Results - last 24 hr 04/04/17 04/04/17 Range/Units 05:46 05:46 WBC 6.55 (3.98-10.04) K/mm3 RBC 5.11 (3.98-5.22) M/mm3 Hgb 14.5 (11.2-15.7) gm/L Hct 43.4 (34.1-44.9) % MCV 84.9 (79.4-94.8) fl MCH 28.4 (25.6-32.2) pg MCHC 33.4 (32.2-35.5) g/dl RDW Std Deviation 42.5 (36.4-46.3) fL Plt Count 250 (182-369) K/mm3 MPV 10.2 (9.4-12.3) fl Neut % (Auto) 67.9 (34.0-71.1) % Lymph % (Auto) 21.2 (19.3-51.7) % [place] % (Auto) 8.4 (4.7-12.5) % Eos % (Auto) 2.0 (0.7-5.8) Baso % (Auto) 0.5 (0.1-1.2) % Neut # (Auto) 4.45 (1.56-6.13) K/mm3 Lymph # (Auto) 1.39 (1.18-3.74) K/mm3 [place] # (Auto) 0.55 H (0.24-0.36) K/mm3 Eos # (Auto) 0.13 (0.04-0.36) K/mm3 Baso # (Auto) 0.03 (0.01-0.08) K/mm3 Sodium 140 (136-145) mEq/L Potassium 3.9 (3.5-5.1) mEq/L Chloride 106 (98-107) mEq/L Carbon Dioxide 25 (21-32) mEq/L Anion Gap 12.9 (5-15) BUN 9 (7-18) mg/dL Creatinine 0.8 (0.55-1.02) mg/dL Est Cr Clr Drug Dosing 93.63 mL/min Estimated GFR (MDRD) > 60 (>60) mL/min BUN/Creatinine Ratio 11.3 L (14-18) Glucose 107 H (74-106) mg/dL Calcium 8.3 L (8.5-10.1) mg/dL Magnesium 2.0 (1.8-2.4) mg/dl Med Orders - Current: Current Medications Acetaminophen (Tylenol) 650 mg PO Q4H PRN PRN Reason: Pain (Mild 1-3)/fever Last Admin: 04/02/17 17:16 Dose: 650 mg Acetaminophen/Butalbital/Caffeine (Fioricet 325-50-40 Mg) 2 tab PO Q6H PRN PRN Reason: Headache/Pain Last Admin: 04/01/17 22:42 Dose: 2 tab Hydrocodone Bitart/Acetaminophen ([place] 325-5 Mg) 1 tab PO Q4H PRN PRN Reason: Pain (moderate 4-6) Last Admin: 04/03/17 20:51 Dose: 1 tab Albuterol (Proventil Neb Soln) 2.5 mg NEB Q2H PRN PRN Reason: Shortness Of Breath/wheezing Bupropion HCl (Wellbutrin Xl) 150 mg PO DAILY [facility] Last Admin: 04/04/17 08:34 Dose: Not Given Hydralazine HCl (Apresoline) 20 mg IVPUSH Q4H PRN PRN Reason: Hypertension Last Admin: 04/02/17 05:29 Dose: 20 mg Hydromorphone HCl (Dilaudid) 0.25 mg IVPUSH Q2H PRN PRN Reason: Pain (severe 7-10) Last Admin: 04/03/17 20:47 Dose: 0.25 mg Potassium Chloride/Dextrose/Sod Cl (D5 Ns With 20 Meq Kcl) 1,000 mls @ 100 mls/ hr IV ASDIRECTED [facility] Last Admin: 04/04/17 01:07 Dose: 100 mls/hr Lorazepam (Ativan) 1 mg IV Q6H PRN PRN Reason: Anxiety Metoprolol Tartrate (Lopressor) 5 mg IVPUSH Q4H PRN PRN Reason: Tachycardia Ondansetron HCl (Zofran) 4 mg IVPUSH Q6H PRN PRN Reason: Nausea/Vomiting Last Admin: 04/04/17 08:04 Dose: 4 mg Pantoprazole Sodium (Protonix) 40 mg PO Q12H [facility] Last Admin: 04/04/17 08:34 Dose: Not Given Potassium Chloride (Potassium Chloride) 40 meq PO BID [facility] Last Admin: 04/04/17 08:34 Dose: Not Given Scopolamine (Transderm-Scop) 1.5 mg TRDERM Q72H PRN PRN Reason: Nausea/Vomiting Last Admin: 04/01/17 22:42 Dose: 1.5 mg Sodium Chloride (Saline Flush) 10 ml FLUSH ASDIRECTED PRN PRN Reason: Keep Vein Open Temazepam (Restoril) 30 mg PO BEDTIME PRN PRN Reason: Sleep Discontinued Medications Diatrizoate Meglum/Diatrizoate Sod (Gastrografin 37%) 90 ml PO ONETIME ONE Stop: 04/01/17 10:13 Last Admin: 04/01/17 10:39 Dose: 90 ml Diphenhydramine HCl (Benadryl) 50 mg IVPUSH ONETIME ONE Stop: 04/01/17 14:16 Last Admin: 04/01/17 14:23 Dose: 50 mg Famotidine (Pepcid) 20 mg PO BID [facility] Last Admin: 04/03/17 08:29 Dose: 20 mg Hydromorphone HCl (Dilaudid) 1 mg IVPUSH ONETIME ONE Stop: 04/01/17 09:18 Last Admin: 04/01/17 09:30 Dose: 1 mg Sodium Chloride (Normal Saline) 2,000 mls @ 1,000 mls/hr IV .BOLUS STA Stop: 04/01/17 11:14 Last Admin: 04/01/17 09:31 Dose: 1,000 mls/hr Potassium Chloride/Dextrose/Sod Cl (D5 Ns With 20 Meq Kcl) 1,000 mls @ 150 mls/ hr IV ASDIRECTED [facility] Last Admin: 04/02/17 02:09 Dose: 150 mls/hr Dextrose/Sodium Chloride (Dextrose 5%-1/2 Ns) 1,000 mls @ 125 mls/hr IV ASDIRECTED [facility] Iopamidol (Isovue-300 (61%)) 125 ml IVPUSH ONETIME ONE Stop: 04/01/17 10:13 Last Admin: 04/01/17 10:39 Dose: 125 ml Ondansetron HCl (Zofran) 4 mg IVPUSH ONETIME ONE Stop: 04/01/17 09:16 Last Admin: 04/01/17 09:30 Dose: 4 mg Pantoprazole Sodium (Protonix Iv) 40 mg IVPUSH Q12H [facility] Last Admin: 04/03/17 08:28 Dose: 40 mg Pantoprazole Sodium (Protonix) 40 mg PO Q12H [facility] Last Admin: 04/03/17 16:20 Dose: Not Given Sodium Chloride (Saline Flush) 10 ml FLUSH ASDIRECTED PRN PRN Reason: Keep Vein Open Last Admin: 04/01/17 09:31 Dose: 10 ml Sodium Chloride (Saline Flush) 10 ml FLUSH ONETIME PRN PRN Reason: IV FLUSH Last Admin: 04/01/17 10:39 Dose: 10 ml - Exam Quality Assessment: DVT prophylaxis General: alert, oriented, cooperative, mild distress HEENT: Pupils equal, Pupils reactive, EOMI Neck: supple, trachea midline Lungs: Normal respiratory effort Cardiovascular: Regular Rate, Regular Rhythm Abdomen: bowel sounds present, soft, no tenderness, no distension (Female) Exam: Deferred Back Exam: normal inspection Extremities: normal pulses Skin: warm Neurological: no new focal deficit, normal speech Psy/Mental Status: alert, depressed (query) - Problem List & Annotations (1) Abdominal pain SNOMED Code(s): 25618618 Code(s): R10.9 - UNSPECIFIED ABDOMINAL PAIN Status: Acute Current Visit: Yes Qualifiers: Abdominal location: upper abdomen, unspecified Qualified Code(s): R10.10 - Upper abdominal pain, unspecified (2) Dehydration SNOMED Code(s): 69227473 Code(s): E86.0 - DEHYDRATION Status: Acute Current Visit: Yes (3) Hypokalemia SNOMED Code(s): 76842527 Code(s): E87.6 - HYPOKALEMIA Status: Acute Current Visit: Yes (4) Nausea & vomiting SNOMED Code(s): 77959850 Code(s): R11.2 - NAUSEA WITH VOMITING, UNSPECIFIED Status: Acute Current Visit: Yes Qualifiers: Vomiting type: unspecified Vomiting Intractability: intractable Qualified Code(s): R11.2 - Nausea with vomiting, unspecified (5) Abdominal discomfort SNOMED Code(s): 77875592 Code(s): R10.9 - UNSPECIFIED ABDOMINAL PAIN Status: Acute Current Visit: No (6) Alcohol abuse SNOMED Code(s): 03740818 Code(s): F10.10 - ALCOHOL ABUSE, UNCOMPLICATED Status: Acute Current Visit: No (7) Gastritis SNOMED Code(s): 2852804 Code(s): K29.70 - GASTRITIS, UNSPECIFIED, WITHOUT BLEEDING Status: Acute Current Visit: No Qualifiers: Gastritis type: other gastritis Chronicity: acute Gastritis bleeding: without bleeding Qualified Code(s): K29.00 - Acute gastritis without bleeding - Problem List Review Problem List Initiated/Reviewed/Updated: Yes - My Orders Last 24 Hours: My Active Orders 04/03/17 15:30 CULTURE URINE [RM] Routine 04/03/17 18:57 Notify Provider Consults [RC] ASDIRECTED 04/03/17 20:16 Communication Order [RC] ASDIRECTED 04/03/17 21:00 Potassium Chloride 40 meq PO BID 04/03/17 Dinner Clear Liquid Diet [DIET] 04/04/17 09:00 Consult to Physician [CONS] Routine 04/04/17 11:30 Cholescintigraphy w Pharm Int [NM] Routine - Plan Plan:: Assessment/Plan: Abdominal Epigastric Pain Associated with Eructation - Will resume PPI BID - Add H2B BID - EGD unremarkable, BXs are pending. *HIDA scan WNL *Evaluation by gen surg by Dr Zepeda, completed. S/p Acute Toxicity to Weight Loss Drugs - She is on the following meds: diethylpropion 25 mg po BID, Natrexone 50 m gpo daily, Metformin 500 mg po BID (not sure if has already been increased) and Wellbutrin 150 mg po daily - Lost 70lbs so far - She does not eat properly or exercise - She is dependent on Medication only i.e. "easy way out" - Her Metformin was recently up in dose per patient - Will hold off all meds except Wellbutrin - Supportive care and IV fluids S/p Intractable Nausea and Vomiting - 2/2 above - PNR Meds - Supportive Care Morbid Obesity - BMI of 43.5 - Refused Dietary Consult - She does not exercise Plan: Psychiatric consult re: depression She is clinically stable; HIDA/EGD WNL. Will advance diet as tolerated. NEEDS TO EXERCISE Continue current treatment Routine AM Labs Advance diet as tolerate, continue clear liquids SW/CM for d/c planning Additional orders as above LOS>96 hours with slow response to therapy
[2017-04-04] MEDS ORDERED: Prochlorperazine 10 MG/2 ML SDV IVPUSH PRN (10:47)
[2017-04-04] MEDS: Prochlorperazine 10 MG/2 ML SDV IVPUSH SCH ×2 (11:06→16:13)
[2017-04-04] MEDS ORDERED: Midazolam 1 MG/ML 2 ML SDV ONE (13:01)
[2017-04-04] MEDS ORDERED: Lidocaine 1% 8 ML ONE (13:01)
[2017-04-04] MEDS ORDERED: Propofol 200 MG/20 ML SDV ONE ×2 (13:01→14:53)
[2017-04-04] MEDS ORDERED: Lactated Ringers 1,000 ML ONE (13:02)
--- NOTE | 2017-04-04 14:46 | NM ---
Biliary HIDA scan with ejection fraction Technique: 3.0 mCi of technetium 99 M mebrofenin was given intravenously. Scintigraphic imaging then obtained over the upper abdomen. During the study, 3 ounces of heavy whipping cream was given with 1 teaspoon of sugar and continued scintigraphic imaging was performed. Findings: Normal activity is seen within the gallbladder and within small bowel. Gallbladder ejection fraction is borderline at 46%. Normal gallbladder ejection fraction is generally considered as 45% or greater. Impression: 1. Normal biliary HIDA scan. 2. Borderline gallbladder ejection fraction at 46%. Diagnostic code #2
--- NOTE | 2017-04-04 14:50 | PCM.OPNOTE ---
- General Post-Op/Procedure Note Date of Surgery/Procedure: 04/04/17 Operative Procedure(s): EGD with bx Pre Op Diagnosis: nausea and vomitingh Post-Op Diagnosis: Same Anesthesia Technique: MAC Primary Surgeon: Mateus Zepeda Complications: None Condition: Good Free Text/Narrative:: Intake & Output 04/03/17 04/04/17 04/04/17 23:59 07:59 15:59 Intake Total 220 1086 Output Total 700 Balance -480 1086
--- NOTE | 2017-04-04 15:01 | PCM48HPAN ---
Post Anesthesia Note - EVALUATION WITHIN 48HRS OF ANESTHETIC Vital Signs in Normal Range: Yes Patient Participated in Evaluation: Yes Respiratory Function Stable: Yes Airway Patent: Yes Cardiovascular Function Stable: Yes Hydration Status Stable: Yes Pain Control Satisfactory: Yes Nausea and Vomiting Control Satisfactory: Yes Mental Status Recovered: Yes
[2017-04-04] MEDS ORDERED: Bisacodyl 5 MG Tab PO ONE (16:19)
[2017-04-04] MEDS ORDERED: Pantoprazole 40 MG Tab.CR PO SCH (16:55)
[2017-04-04] MEDS ORDERED: Metoclopramide 10 MG/2 ML SDV ONE (17:09)
[2017-04-04] MEDS: Pantoprazole 40 MG Vial IVPUSH SCH (17:20)
[2017-04-04] MEDS: Metoclopramide 10 MG/2 ML SDV IVPUSH SCH ×2 (17:20→21:39)
[2017-04-05] MEDS: Pantoprazole 40 MG Vial IVPUSH SCH (05:35)
[2017-04-05] MEDS: Metoclopramide 10 MG/2 ML SDV IVPUSH SCH ×3 (05:35→09:22)
[2017-04-05] MEDS: Potassium Chloride 10% 20 MEQ/15 ML Soln 30 ML UD Cup PO SCH ×2 (09:19→09:24)
[2017-04-05] MEDS: buPROPion 150 MG Tab.ER PO SCH (09:19)
[2017-04-05 09:35] VITALS: BP 147/92
--- NOTE | 2017-04-05 13:09 | PCM.DCSUM1 ---
Discharge Summary - Hospital Course Free Text/Narrative:: 36 year old female morbidly obese, presented with abdominal pain/nausea and vomiting. She is on multiple meds for wt loss, and has loss >70 lbs. Her diet was slowly advanced, a HIDA scan was performed and unremarkable. Additionally an EGD was performed with biopsies which are pending. The working diagnosis at [place] is GERD. An appt with her wgt loss doctor is on April 09, an appt with GI will hopefully be made on the same day. Lab results also pending H pylori Ag. Primary Dx Abdominal pain, unspecified Intractable nausea and vomiting Query Toxicity to weight loss meds GERD Depression, unspecified Consultants PT/OT SW Gen Surg Psychiatry, requested but not completed before [place] Condition Stable Disposition Home Meds Resume weight loss meds Scopolamine Protonix Reglan Zofran Follow up Appt [facility] GI TBD - Discharge Data Discharge Date: 04/05/17 Discharge Disposition: Home, Self-Care 01 Condition: Good - Discharge Diagnosis/Problem(s) (1) Abdominal pain SNOMED Code(s): 52441713 ICD Code: R10.9 - UNSPECIFIED ABDOMINAL PAIN Status: Acute Qualifiers: Abdominal location: upper abdomen, unspecified Qualified Code(s): R10.10 - Upper abdominal pain, unspecified (2) Dehydration SNOMED Code(s): 47313030 ICD Code: E86.0 - DEHYDRATION Status: Acute (3) Hypokalemia SNOMED Code(s): 35951729 ICD Code: E87.6 - HYPOKALEMIA Status: Acute (4) Nausea & vomiting SNOMED Code(s): 34640620 ICD Code: R11.2 - NAUSEA WITH VOMITING, UNSPECIFIED Status: Acute Qualifiers: Vomiting type: unspecified Vomiting Intractability: intractable Qualified Code(s): R11.2 - Nausea with vomiting, unspecified (5) Abdominal discomfort SNOMED Code(s): 33653237 ICD Code: R10.9 - UNSPECIFIED ABDOMINAL PAIN Status: Acute (6) Alcohol abuse SNOMED Code(s): 10595539 ICD Code: F10.10 - ALCOHOL ABUSE, UNCOMPLICATED Status: Acute (7) Gastritis SNOMED Code(s): 0800475 ICD Code: K29.70 - GASTRITIS, UNSPECIFIED, WITHOUT BLEEDING Status: Acute Qualifiers: Gastritis type: other gastritis Chronicity: acute Gastritis bleeding: without bleeding Qualified Code(s): K29.00 - Acute gastritis without bleeding - Patient Summary/Data Operative Procedure(s) Performed: EGD with bx Consults: Consultations 04/01/17 12:44 Consult to Case Management [CONS] Routine Consult to Stock Analyst [CONS] Routine 04/02/17 19:40 Consult to Physician [CONS] Routine 04/04/17 09:00 Consult to Physician [CONS] Routine - Discharge Plan Prescriptions/Med Rec: Metoclopramide [Reglan] 10 mg PO ACBED #120 sdv Ondansetron [Zofran] 4 mg PO Q6H PRN #30 vial PRN Reason: Nausea/Vomiting Pantoprazole [ProTONIX IV] 40 mg PO Q12H #60 vial Scopolamine [Transderm-Scop] 1.5 mg TRDERM Q72H PRN #10 patch PRN Reason: Nausea/Vomiting Home Medications: Home Meds Naltrexone 50 mg PO DAILY 04/01/17 [History] buPROPion [Wellbutrin XL] 150 mg PO DAILY 04/01/17 [History] metFORMIN [Glucophage XR] 500 mg PO DAILY 04/01/17 [History] Diethylpropion HCl [Diethylpropion] 50 mg PO DAILY 04/02/17 [History] metFORMIN HCl [Metformin HCl ER] 1,000 mg PO BEDTIME 04/02/17 [History] Metoclopramide [Reglan] 10 mg PO ACBED #120 sdv 04/05/17 [Rx] Ondansetron [Zofran] 4 mg PO Q6H PRN #30 vial 04/05/17 [Rx] Pantoprazole [ProTONIX IV] 40 mg PO Q12H #60 vial 04/05/17 [Rx] Scopolamine [Transderm-Scop] 1.5 mg TRDERM Q72H PRN #10 patch 04/05/17 [Rx] Patient Handouts: Gastritis, Adult, [id number], Nausea and Vomiting, Adult, [id number], Exercising to Lose Weight, Calorie Counting for Weight Loss Referrals: Nataly Thomason [Physician] - (Please call clinic at [phone] on Friday to schedule a follow-up appointment with Dr. Thomason in 1-2 weeks.) - General Info Date of Service: 04/01/17 - Patient Data Vitals - Most Recent: Last Vital Signs Temp 37.0 C 04/05/17 09:33 Pulse 101 H 04/05/17 09:33 Resp 18 04/05/17 09:33 BP 147/92 H 04/05/17 09:33 Pulse Ox 99 04/05/17 09:33 Weight - Most Recent: 124.693 kg I&O - Last 24 hours: Intake & Output 04/04/17 04/05/17 04/05/17 22:59 06:59 14:59 Intake Total 920 1625 400 Output Total 1800 500 Balance -880 1625 -100 Lab Results - Last 24 hrs: Laboratory Results - last 24 hr 04/04/17 04/05/17 Range/Units 05:46 05:54 Magnesium 1.9 (1.8-2.4) mg/dl H. pylori IgG Antibody Negative (NEGATIVE) TRENT Results - Last 24 hrs: Microbiology 04/05/17 10:10 Helicobacter pylori Antigen - Final Stool / Feces NEGATIVE [facility]. [facility] Med Orders - Current: Current Medications Discontinued Medications Acetaminophen (Tylenol) 650 mg PO Q4H PRN PRN Reason: Pain (Mild 1-3)/fever Last Admin: 04/02/17 17:16 Dose: 650 mg Acetaminophen/Butalbital/Caffeine (Fioricet 325-50-40 Mg) 2 tab PO Q6H PRN PRN Reason: Headache/Pain Last Admin: 04/01/17 22:42 Dose: 2 tab Hydrocodone Bitart/Acetaminophen ([place] 325-5 Mg) 1 tab PO Q4H PRN PRN Reason: Pain (moderate 4-6) Last Admin: 04/03/17 20:51 Dose: 1 tab Albuterol (Proventil Neb Soln) 2.5 mg NEB Q2H PRN PRN Reason: Shortness Of Breath/wheezing Bisacodyl (Dulcolax) 10 mg PO ONETIME ONE Stop: 04/04/17 16:20 Last Admin: 04/04/17 16:28 Dose: 10 mg Bupropion HCl (Wellbutrin Xl) 150 mg PO DAILY JOHNIE Last Admin: 04/05/17 09:19 Dose: 150 mg Diatrizoate Meglum/Diatrizoate Sod (Gastrografin 37%) 90 ml PO ONETIME ONE Stop: 04/01/17 10:13 Last Admin: 04/01/17 10:39 Dose: 90 ml Diphenhydramine HCl (Benadryl) 50 mg IVPUSH ONETIME ONE Stop: 04/01/17 14:16 Last Admin: 04/01/17 14:23 Dose: 50 mg Famotidine (Pepcid) 20 mg PO BID JOHNIE Last Admin: 04/03/17 08:29 Dose: 20 mg Hydralazine HCl (Apresoline) 20 mg IVPUSH Q4H PRN PRN Reason: Hypertension Last Admin: 04/02/17 05:29 Dose: 20 mg Hydromorphone HCl (Dilaudid) 1 mg IVPUSH ONETIME ONE Stop: 04/01/17 09:18 Last Admin: 04/01/17 09:30 Dose: 1 mg Hydromorphone HCl (Dilaudid) 0.25 mg IVPUSH Q2H PRN PRN Reason: Pain (severe 7-10) Last Admin: 04/03/17 20:47 Dose: 0.25 mg Sodium Chloride (Normal Saline) 2,000 mls @ 1,000 mls/hr IV .BOLUS STA Stop: 04/01/17 11:14 Last Admin: 04/01/17 09:31 Dose: 1,000 mls/hr Potassium Chloride/Dextrose/Sod Cl (D5 Ns With 20 Meq Kcl) 1,000 mls @ 150 mls/ hr IV ASDIRECTED JOHNIE Last Admin: 04/02/17 02:09 Dose: 150 mls/hr Dextrose/Sodium Chloride (Dextrose 5%-1/2 Ns) 1,000 mls @ 125 mls/hr IV ASDIRECTED JOHNIE Potassium Chloride/Dextrose/Sod Cl (D5 Ns With 20 Meq Kcl) 1,000 mls @ 100 mls/ hr IV ASDIRECTED JOHNIE Last Admin: 04/04/17 16:14 Dose: 100 mls/hr Lidocaine HCl (Xylocaine-Mpf 1%) Confirm Administered Dose 8 mls @ as directed .ROUTE .STK-MED ONE Stop: 04/04/17 13:02 Lactated Ringer's (Ringers, Lactated) Confirm Administered Dose 1,000 mls @ as directed .ROUTE .STK-MED ONE Stop: 04/04/17 13:03 Iopamidol (Isovue-300 (61%)) 125 ml IVPUSH ONETIME ONE Stop: 04/01/17 10:13 Last Admin: 04/01/17 10:39 Dose: 125 ml Lorazepam (Ativan) 1 mg IV Q6H PRN PRN Reason: Anxiety Metoclopramide HCl (Reglan) 10 mg IVPUSH ACBED [facility] Last Admin: 04/05/17 09:22 Dose: 10 mg Metoclopramide HCl (Reglan) Confirm Administered Dose 10 mg .ROUTE .STK-MED ONE Stop: 04/04/17 17:10 Last Admin: 04/04/17 17:20 Dose: Not Given Metoprolol Tartrate (Lopressor) 5 mg IVPUSH Q4H PRN PRN Reason: Tachycardia Midazolam HCl (Versed 1 Mg/Ml) Confirm Administered Dose 2 mg .ROUTE .STK-MED ONE Stop: 04/04/17 13:02 Ondansetron HCl (Zofran) 4 mg IVPUSH ONETIME ONE Stop: 04/01/17 09:16 Last Admin: 04/01/17 09:30 Dose: 4 mg Ondansetron HCl (Zofran) 4 mg IVPUSH Q6H PRN PRN Reason: Nausea/Vomiting Last Admin: 04/04/17 08:04 Dose: 4 mg Pantoprazole Sodium (Protonix Iv) 40 mg IVPUSH Q12H [facility] Last Admin: 04/03/17 08:28 Dose: 40 mg Pantoprazole Sodium (Protonix) 40 mg PO Q12H [facility] Last Admin: 04/03/17 16:20 Dose: Not Given Pantoprazole Sodium (Protonix) 40 mg PO Q12H [facility] Last Admin: 04/04/17 08:34 Dose: Not Given Pantoprazole Sodium (Protonix Iv) 40 mg IVPUSH Q12H [facility] Last Admin: 04/05/17 05:35 Dose: 40 mg Pantoprazole Sodium (Protonix) 40 mg PO Q12H [facility] Last Admin: 04/04/17 17:29 Dose: Not Given Potassium Chloride (Potassium Chloride) 40 meq PO BID [facility] Last Admin: 04/05/17 09:24 Dose: Not Given Prochlorperazine Edisylate (Compazine) 10 mg IVPUSH Q6H PRN PRN Reason: Nausea/Vomiting Prochlorperazine Edisylate (Compazine) 10 mg IVPUSH Q6H JOHNIE Last Admin: 04/04/17 16:13 Dose: Not Given Propofol (Diprivan 20 Ml) Confirm Administered Dose 400 mg .ROUTE .STK-MED ONE Stop: 04/04/17 13:02 Propofol (Diprivan 20 Ml) Confirm Administered Dose 200 mg .ROUTE .STK-MED ONE Stop: 04/04/17 14:54 Scopolamine (Transderm-Scop) 1.5 mg TRDERM Q72H PRN PRN Reason: Nausea/Vomiting Last Admin: 04/01/17 22:42 Dose: 1.5 mg Sodium Chloride (Saline Flush) 10 ml FLUSH ASDIRECTED PRN PRN Reason: Keep Vein Open Last Admin: 04/01/17 09:31 Dose: 10 ml Sodium Chloride (Saline Flush) 10 ml FLUSH ONETIME PRN PRN Reason: IV FLUSH Last Admin: 04/01/17 10:39 Dose: 10 ml Sodium Chloride (Saline Flush) 10 ml FLUSH ASDIRECTED PRN PRN Reason: Keep Vein Open Temazepam (Restoril) 30 mg PO BEDTIME PRN PRN Reason: Sleep *Q Meaningful Use (DIS) - VTE *Q VTE Criteria *Q: - Stroke *Q Stroke Criteria *Q: - AMI *Q AMI Criteria *Q:
--- NOTE | 2017-04-07 07:13 | OR ---
DATE OF OPERATION: 04/04/2017 SURGEON: Mateus Zepeda MD PREOPERATIVE DIAGNOSIS: Persistent nausea and vomiting. POSTOPERATIVE DIAGNOSIS: Persistent nausea and vomiting. OPERATION PERFORMED: Esophagogastroduodenoscopy with biopsy. FINDINGS: Second portion of the duodenum, duodenal bulb, pyloric channel, antrum, body and cardia of the stomach were unremarkable. J-maneuver showed intact hiatus. GI junction located at 40 cm and the GE junction was sharp, free of any acute pathology. Balance of the esophagus was free of any disease. ANESTHESIA: IV sedation DESCRIPTION OF PROCEDURE: The patient was taken to the operating room, placed in a supine position, connected to monitoring equipment, and given IV sedation placed in the left lateral position. Bite block was inserted. Video Olympus gastroscope placed in the posterior oropharynx. Under direct vision, threaded past the cricopharyngeus, down the esophagus, into the stomach. Stomach was insufflated and the scope passed through the pylorus to the second portion of the duodenum. Second portion of the duodenum did involve pyloric channel, which was unremarkable. Antrum, body, and cardia of the stomach did not show any gross pathology. Biopsies of the antrum were performed. The retained cream was sucked out. The rest of the cardia and fundus, J-maneuver was viewed. Scope withdrawn to the GE junction and was unremarkable. The rest esophagus did not show any acute pathology. The patient tolerated the procedure, sent to recovery room in a stable condition. Specimen sent to pathology in a labeled container. The patient to be followed up in the clinic. ESTIMATED BLOOD LOSS: MMODAL /[id number]
== END 2017-04-05 10:40 | disposition home or self-care (01) | DRG 251 ==
LOC: JD.ED 08:47 → JD.MS 12:27
PROVIDERS: ADMIT Internal Medicine; ATTEND Internal Medicine
PROC: 0DB68ZX Excision of Stomach, Via Natural or Artificial Opening Endoscopic, Diagnostic (ICD-10-PCS; principal; 2017-04-04)
DX: R10.13 Epigastric pain (principal); E87.6 Hypokalemia; E86.0 Dehydration; R11.2 Nausea with vomiting, unspecified; K21.9 Gastro-esophageal reflux disease without esophagitis; T50.5X5A Adverse effect of appetite depressants, initial encounter; E66.01 Morbid (severe) obesity due to excess calories; Z88.0 Allergy status to penicillin; Z88.2 Allergy status to sulfonamides; Z79.899 Other long term (current) drug therapy; Z87.891 Personal history of nicotine dependence; Z68.41 Body mass index [BMI] 40.0-44.9, adult; F10.10 Alcohol abuse, uncomplicated; F32.9 Major depressive disorder, single episode, unspecified
CPT/HCPCS: 36415; 74177; 74177-26; 78227; 78227-26; 80048; 80053; 81001; 83690; 83735; 84439; 84443; 84703; 85025; 86140; 86677; 87086; 87338; 88305; 88305-26; 96361; 96374; 96375; 99284; 99285-25; A9270; A9270-GY; A9537; C9113; J0360; J0780; J1170; J1200; J2250; J2405; J2704; J2765; J3480; J7040; J7050; J7120; Q9963; Q9967

== ENCOUNTER 2017-04-10 06:39 | Emergency (ER) | payer BC ==
[2017-04-10] MEDS ORDERED: Ondansetron 4 MG/2 ML SDV IVPUSH STA (07:33)
[2017-04-10] MEDS ORDERED: Sodium Chloride 0.9% 1,000 ML IV ONE (07:36)
[2017-04-10] MEDS ORDERED: HYDROmorphone 1 MG/ML Syringe IVPUSH ONE (08:06)
--- NOTE | 2017-04-10 08:07 | EDM.PDOC ---
ED HPI GENERAL MEDICAL PROBLEM - General Chief Complaint: Abdominal Pain Stated Complaint: NAUSEA/VOMITING Time Seen by Provider: 04/10/17 07:05 Source of Information: Reports: Patient, Family (Mother), Old records, RN notes reviewed History Limitations: Reports: No limitations - History of Present Illness INITIAL COMMENTS - FREE TEXT/NARRATIVE: The patient states that she has had nausea, vomiting, and abdominal pain for the past 2 weeks. She was seen in this ED on , 03/27/2017, where a workup including a CBC, CMP, lipase level, urinalysis, urine hCG, EtOH level, and abdominal plain films were all negative. The patient continued to complain of pain despite several doses of IV Dilaudid. She was ultimately discharged home with prescriptions for Bentyl and Zofran. She was seen again in this ED on 03/29/2017, where a CBC, CMP, lipase level, and urinalysis were all grossly unremarkable. She was discharged home. She returned to this ED on 04/01/2017 with continued symptoms. Again, a CBC, CMP , lipase level urinalysis, and urine hCG were all negative. A CT scan of the abdomen and pelvis with oral and IV contrast was unremarkable. She was admitted to this hospital. Workup in the hospital included a HIDA scan which demonstrated a 46% ejection fraction. An EGD performed by Dr. Mateus Zepeda was unremarkable. She was discharged home on 04/05/2017. She followup with her weight loss physician yesterday, 04/09/2017. She states that her weight loss physician was concerned about gallbladder disease, despite the negative workup. He recommended that the patient go to [facility], which she did yesterday. She states that bloodwork performed there remained negative. She was given IV fluid, and discharged home. She now returns with continued symptoms. She states she has had a 21 pound weight loss over the past 2 weeks. She continues to complain of epigastric pain radiating to the right upper quadrant and through to her back, not associated with food or position. She denies any recent travel. No recent antibiotics. No similarly ill contacts. Epigastric Pain Score (Numeric/FACES): 10 - Related Data Allergies Allergy/AdvReac Type Severity Reaction Status Date / Time amoxicillin Allergy Hives Verified 04/10/17 06:49 Penicillins Allergy Hives Verified 04/10/17 06:49 Home Meds: Home Meds Naltrexone 50 mg PO DAILY 04/01/17 [History] buPROPion [Wellbutrin XL] 150 mg PO DAILY 04/01/17 [History] metFORMIN [Glucophage XR] 500 mg PO DAILY 04/01/17 [History] Diethylpropion HCl [Diethylpropion] 50 mg PO DAILY 04/02/17 [History] metFORMIN HCl [Metformin HCl ER] 1,000 mg PO BEDTIME 04/02/17 [History] Metoclopramide [Reglan] 10 mg PO ACBED #120 sdv 04/05/17 [Rx] Ondansetron [Zofran] 4 mg PO Q6H PRN #30 vial 04/05/17 [Rx] Pantoprazole [ProTONIX IV] 40 mg PO Q12H #60 vial 04/05/17 [Rx] Scopolamine [Transderm-Scop] 1.5 mg TRDERM Q72H PRN #10 patch 04/05/17 [Rx] Past Medical History 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: Reports: Endocrine/Metabolic History: Reports: Obesity/BMI 30+ - Past Surgical History Female Surgical History: Reports: D&C (x 2) Social & Family History - Family History Family Medical History: Noncontributory - Tobacco Use Smoking Status *Q: Former Smoker Years of Tobacco use: 10 Packs/Tins Daily: 0.5 Second Hand Smoke Exposure: Yes - Caffeine Use Caffeine Use: Reports: Soda - Alcohol Use Alcohol Use History: Yes Days Per Week of Alcohol Use: 1 (maybe once a month) Number of Drinks Per Day: 1 Total Drinks Per Week: 1 Alcohol Use Frequency: Socially - Recreational Drug Use Recreational Drug Use: Yes Drug Use in Last 12 Months: Yes Recreational Drug Type: Reports: Marijuana/Hashish - Living Situation & Occupation Living situation: Reports: , with spouse 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[employer]) ED ROS GENERAL - Review of Systems Review Of Systems: See Below Constitutional: Reports: no symptoms HEENT: Reports: No symptoms Respiratory: Reports: No Symptoms Cardiovascular: Reports: No symptoms Endocrine: Reports: no symptoms GI/Abdominal: Reports: Abdominal pain, Diarrhea, Nausea, Vomiting : Reports: no symptoms Musculoskeletal: Reports: no symptoms Skin: Reports: no symptoms Neurological: Reports: No Symptoms Hematologic/Lymphatic: Reports: no symptoms Immunologic: Reports: no symptoms ED EXAM, GI/ABD - Physical Exam Exam: See Below Exam Limited By: No limitations General Appearance: alert, WD/WN, no apparent distress Eyes: bilateral: normal appearance, EOMI Ears: normal external exam, hearing grossly normal Nose: normal inspection, no blood Throat/Mouth: Normal inspection, Normal lips, Normal voice, No airway compromise Head: atraumatic, normocephalic Neck: normal inspection, full range of motion Respiratory/Chest: no respiratory distress, lungs clear, normal breath sounds, no accessory muscle use Cardiovascular: normal peripheral pulses, regular rate, rhythm, no gallop, no JVD, no murmur, no rub GI/Abdominal: Normal Bowel Sounds, Soft, No Organomegaly, No Distention, No Abnormal Bruit, No Mass, Tenderness (Primarily right upper quadrant and epigastric region. Essentially nontender elsewhere.), Other (Obese) Rectal (Female) Exam: Deferred Back Exam: normal inspection, full range of motion. No: CVA tenderness (L), CVA tenderness (R) Extremities: normal inspection, normal range of motion, no pedal edema, normal capillary refill Neurological: alert, oriented, normal cognition, no motor/sensory deficits Psychiatric: normal affect Skin Exam: Warm, Dry, Intact, Normal color, No rash Lymphatic: no adenopathy Course - Vital Signs Last Recorded V/S: Last Vital Signs Temp 37.2 C 04/10/17 06:45 Pulse 123 H 04/10/17 06:45 Resp 25 H 04/10/17 06:45 BP 172/106 H 04/10/17 06:45 Pulse Ox Orthostatic Blood Pressure [ 163/108 Standing] Orthostatic Blood Pressure [ 164/102 Sitting] Orthostatic Blood Pressure [ 170/97 Supine] - Orders/Labs/Meds Orders: Active Orders 24 hr Category Date Time Status Orthostatic Vital Signs [RC] STAT Care 04/10/17 07:55 Active Labs: Laboratory Tests 04/10/17 04/10/17 04/10/17 Range/Units 07:38 07:38 07:53 WBC 8.67 (3.98-10.04) K/mm3 RBC 5.43 H (3.98-5.22) M/mm3 Hgb 15.6 (11.2-15.7) gm/L Hct 45.3 H (34.1-44.9) % MCV 83.4 (79.4-94.8) fl MCH 28.7 (25.6-32.2) pg MCHC 34.4 (32.2-35.5) g/dl RDW Std Deviation 41.5 (36.4-46.3) fL Plt Count 332 (182-369) K/mm3 MPV 10.3 (9.4-12.3) fl Neutrophils % (Manual) 82 H (40-60) % Band Neutrophils % 1 (0-10) % Lymphocytes % (Manual) 10 L (20-40) % Atypical Lymphs % 0 % Monocytes % (Manual) 6 (2-10) % Eosinophils % (Manual) 1 (0.7-5.8) % Basophils % (Manual) 0 L (0.1-1.2) Platelet Estimate Adequate RBC Morph Comment Normal Sodium 135 L (136-145) mEq/L Potassium 3.7 (3.5-5.1) mEq/L Chloride 102 (98-107) mEq/L Carbon Dioxide 25 (21-32) mEq/L Anion Gap 11.7 (5-15) BUN 12 (7-18) mg/dL Creatinine 1.1 H (0.55-1.02) mg/dL Est Cr Clr Drug Dosing 68.09 mL/min Estimated GFR (MDRD) 56 (>60) mL/min BUN/Creatinine Ratio 10.9 L (14-18) Glucose 110 H (74-106) mg/dL Calcium 9.1 (8.5-10.1) mg/dL Total Bilirubin 1.2 H (0.2-1.0) mg/dL AST 13 L (15-37) U/L ALT 31 (14-59) U/L Alkaline Phosphatase 74 (46-116) U/L Total Protein 8.2 (6.4-8.2) g/dl Albumin 4.0 (3.4-5.0) g/dl Globulin 4.2 gm/dL Albumin/Globulin Ratio 1.0 (1-2) Lipase 223 (73-393) U/L Urine Color (Yellow) Urine Appearance (Clear) Urine pH (5.0-8.0) Ur Specific [place] (1.005-1.030) Urine Protein (Negative) Urine Glucose (UA) (Negative) Urine Ketones (Negative) Urine Occult Blood (Negative) Urine Nitrite (Negative) Urine Bilirubin (Negative) Urine Urobilinogen (0.2-1.0) Ur Leukocyte Esterase (Negative) Urine RBC (0-5) /hpf Urine WBC (0-5) /hpf Ur Epithelial Cells (0-5) /hpf Amorphous Sediment (NOT SEEN) /hpf Urine Bacteria (FEW) /hpf Urine Mucus (FEW) /hpf Urine HCG, Qual Negative (NEGATIVE) Urine Opiates Screen (NEGATIVE) Ur Buprenorphine Scrn (NEGATIVE) Ur Oxycodone Screen (NEGATIVE) Urine Methadone Screen (NEGATIVE) Ur Propoxyphene Screen (NEGATIVE) Ur Barbiturates Screen (NEGATIVE) Ur Tricyclics Screen (NEGATIVE) Ur Phencyclidine Scrn (NEGATIVE) Ur Amphetamine Screen (NEGATIVE) U Methamphetamines Scrn (NEGATIVE) U Benzodiazepines Scrn (NEGATIVE) U Cocaine Metab Screen (NEGATIVE) U Marijuana (THC) Screen (NEGATIVE) 04/10/17 04/10/17 Range/Units 07:53 07:56 WBC (3.98-10.04) K/mm3 RBC (3.98-5.22) M/mm3 Hgb (11.2-15.7) gm/L Hct (34.1-44.9) % MCV (79.4-94.8) fl MCH (25.6-32.2) pg MCHC (32.2-35.5) g/dl RDW Std Deviation (36.4-46.3) fL Plt Count (182-369) K/mm3 MPV (9.4-12.3) fl Neutrophils % (Manual) (40-60) % Band Neutrophils % (0-10) % Lymphocytes % (Manual) (20-40) % Atypical Lymphs % % Monocytes % (Manual) (2-10) % Eosinophils % (Manual) (0.7-5.8) % Basophils % (Manual) (0.1-1.2) Platelet Estimate RBC Morph Comment Sodium (136-145) mEq/L Potassium (3.5-5.1) mEq/L Chloride (98-107) mEq/L Carbon Dioxide (21-32) mEq/L Anion Gap (5-15) BUN (7-18) mg/dL Creatinine (0.55-1.02) mg/dL Est Cr Clr Drug Dosing mL/min Estimated GFR (MDRD) (>60) mL/min BUN/Creatinine Ratio (14-18) Glucose (74-106) mg/dL Calcium (8.5-10.1) mg/dL Total Bilirubin (0.2-1.0) mg/dL AST (15-37) U/L ALT (14-59) U/L Alkaline Phosphatase (46-116) U/L Total Protein (6.4-8.2) g/dl Albumin (3.4-5.0) g/dl Globulin gm/dL Albumin/Globulin Ratio (1-2) Lipase (73-393) U/L Urine Color Yellow (Yellow) Urine Appearance Clear (Clear) Urine pH 8.0 (5.0-8.0) Ur Specific [place] 1.020 (1.005-1.030) Urine Protein 1+ H (Negative) Urine Glucose (UA) Negative (Negative) Urine Ketones 2+ H (Negative) Urine Occult Blood Negative (Negative) Urine Nitrite Negative (Negative) Urine Bilirubin 1+ H (Negative) Urine Urobilinogen 1.0 (0.2-1.0) Ur Leukocyte Esterase Negative (Negative) Urine RBC 0-5 (0-5) /hpf Urine WBC 0-5 (0-5) /hpf Ur Epithelial Cells 0-5 (0-5) /hpf Amorphous Sediment Few H (NOT SEEN) /hpf Urine Bacteria Few (FEW) /hpf Urine Mucus Few (FEW) /hpf Urine HCG, Qual (NEGATIVE) Urine Opiates Screen Negative (NEGATIVE) Ur Buprenorphine Scrn Negative (NEGATIVE) Ur Oxycodone Screen Negative (NEGATIVE) Urine Methadone Screen Negative (NEGATIVE) Ur Propoxyphene Screen Negative (NEGATIVE) Ur Barbiturates Screen Negative (NEGATIVE) Ur Tricyclics Screen Negative (NEGATIVE) Ur Phencyclidine Scrn Negative (NEGATIVE) Ur Amphetamine Screen Negative (NEGATIVE) U Methamphetamines Scrn Negative (NEGATIVE) U Benzodiazepines Scrn Negative (NEGATIVE) U Cocaine Metab Screen Negative (NEGATIVE) U Marijuana (THC) Screen Negative (NEGATIVE) Meds: Medications Discontinued Medications Generic Name Dose Route Start Last Admin Trade Name Freq PRN Reason Stop Dose Admin Hydromorphone HCl 1 mg 04/10/17 08:06 04/10/17 08:11 Dilaudid IVPUSH 04/10/17 08:07 1 mg ONETIME ONE Administration Sodium Chloride 1,000 mls @ 999 mls/hr 04/10/17 07:36 04/10/17 07:51 Normal Saline IV 04/10/17 08:36 999 mls/hr ONETIME ONE Administration Ondansetron HCl 8 mg 04/10/17 07:33 04/10/17 07:47 Zofran IVPUSH 04/10/17 07:34 8 mg ONETIME STA Administration - Re-Assessments/Exams Free Text/Narrative Re-Assessment/Exam: 04/10/17 08:06 The patient is not orthostatic. 04/10/17 08:30 On the patient's abdominal examination, she jumped significantly with the slightest touch. She was crying when I first came into the room, but calmed down quickly when I was obtaining her history. I believe that her abdominal findings are at least contributed by history on its the Case discussed with Dr. Zepeda at 08:25. He agrees that there likely a psychiatric component to the patient's symptoms. 04/10/17 09:28 Test results reviewed. Today's workup is entirely unremarkable. Case discussed with Dr. Shahid, however, this hospital is currently on diversion , therefore admission, even into observation, is not possible. Test results then discussed with the patient and her mother. They are upset that I have not been able to diagnose the cause of the patient's symptoms, despite explanation. They inform me that they have an appointment with a surgeon at [facility] this afternoon. I am recommending that we keep that appointment, for possible GI referral. The patient states that she does not need refills of any of her antiemetic medications. Departure - Departure Time of Disposition: 09:29 Disposition: Home, Self-Care 01 Condition: fair Clinical Impression: Nausea and vomiting Qualifiers: Vomiting type: unspecified Vomiting Intractability: intractable Qualified Code( s): R11.2 - Nausea with vomiting, unspecified - Discharge Information Forms: ED Department Discharge Additional Instructions: You were seen in the emergency room today for persistent nausea and vomiting over the past 2 weeks. Workup in the ER included a CBC, CMP, lipase level, urinalysis, urine test, urine drug screen, and positional blood pressure checks. Your entire workup was unremarkable. You do not have an elevated white blood cell count. You are not anemic. Your electrolytes are normal. You are not dehydrated. You did not have pancreatitis. You do not have a urinary tract infection. You are not . Because you had a normal CT scan on 04/01/2017 , a CT scan was not repeated today. The cause of your symptoms is unknown. We recommend that you keep your appointment with the Surgeon at [facility] later today. They may wish to refer you to a Clinical Auditor for further evaluation. If any other problems, please do not hesitate to return to the ER. - My Orders Last 24 Hours: My Active Orders 04/10/17 07:55 Orthostatic Vital Signs [RC] STAT - Assessment/Plan Last 24 Hours: My Active Orders 04/10/17 07:55 Orthostatic Vital Signs [RC] STAT
[2017-04-10 09:48] VITALS: BP 177/97
== END 2017-04-10 09:40 | disposition home or self-care (01) ==
LOC: JD.ED 06:39
DX: R11.2 Nausea with vomiting, unspecified (principal); R10.9 Unspecified abdominal pain; R19.7 Diarrhea, unspecified
CPT/HCPCS: 36415; 80053; 80306; 81001; 81025; 83690; 85025; 96361; 96374; 96375; 99284; J1170; J2405; J7040

== ENCOUNTER 2017-04-15 13:27 | Emergency (ER) | payer BC ==
--- NOTE | 2017-04-15 13:55 | EDM.PDOC ---
ED HPI GENERAL MEDICAL PROBLEM - General Chief Complaint: Gastrointestinal Problem Stated Complaint: VOMITING/POST GALLBLADDER SURGERY Time Seen by Provider: 04/15/17 13:49 Source of Information: Reports: Patient History Limitations: Reports: No Limitations - History of Present Illness INITIAL COMMENTS - FREE TEXT/NARRATIVE: 36-year-old female presents to the ED with sudden onset of fever chills generalized weakness and sense of confusion. She's had rigors and chills today. Gallbladder was removed by Dr. Rojas: [facility] on April 11. She stayed overnight and was discharged on April 12. Has not had not had a bowel movement since surgery. Is not using much in the way of pain medication. Started to become more nauseated and feeling generally weak with fever and chills overnight and particularly rigors this morning. Nauseated without any vomiting. She feels like she could vomit at any second or. No diarrhea. Perhaps abdomen is a little more sore today than it was yesterday. The circumflex was performed laparoscopically. Of note she was hospitalized in our hospital for 5 days before traveling to [place] for cholecystectomy. Unclear whether she was febrile at that time to have an underlying infective process. On my exam she is definitely febrile. Of note she is not using the scopolamine patch since surgery. Onset: Sudden (Overnight.), Gradual Onset Date: 04/14/17 Duration: Hour(s):, Constant, Getting Worse Location: Reports: Generalized (Myalgia.), Other (Fever and chills generalized myalgia.) Quality: Reports: Ache, Other Severity: Moderate (Weakness) Improves with: Reports: None Worsens with: Reports: Movement Context: Denies: Activity, Exercise, Lifting, Sick Contact, Trauma, Other Associated Symptoms: Reports: Confusion (Feels confused but ashes all questions quite appropriately.), Cough, Fever/Chills (Nausea without), Headaches, Loss of Appetite, Nausea/Vomiting. 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 (see below) Abdomen Pain Score (Numeric/FACES): 10 - Related Data Allergies Allergy/AdvReac Type Severity Reaction Status Date / Time amoxicillin Allergy Hives Verified 04/10/17 06:49 Penicillins Allergy Hives Verified 04/10/17 06:49 Home Meds: Home Meds Naltrexone 50 mg PO DAILY 04/01/17 [History] buPROPion [Wellbutrin XL] 150 mg PO DAILY 04/01/17 [History] metFORMIN [Glucophage XR] 500 mg PO DAILY 04/01/17 [History] Diethylpropion HCl [Diethylpropion] 50 mg PO DAILY 04/02/17 [History] metFORMIN HCl [Metformin HCl ER] 1,000 mg PO BEDTIME 04/02/17 [History] Past Medical History - Past Health History Medical/Surgical History: Denies Medical/Surgical History Cardiovascular History: Reports: None Respiratory History: Reports: None Gastrointestinal History: Reports: GERD 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 Ramírez at [facility]) Female Surgical History: Reports: D&C - History Comment History Comment: wellbutrin and metformin pills for weight loss Social & Family History - Family History Family Medical History: Noncontributory - Tobacco Use Smoking Status *Q: Never Smoker Years of Tobacco use: 10 Packs/Tins Daily: 0.5 Second Hand Smoke Exposure: Yes - Caffeine Use Caffeine Use: Reports: None - Alcohol Use Days Per Week of Alcohol Use: 1 (maybe once a month) Number of Drinks Per Day: 1 Total Drinks Per Week: 1 - Recreational Drug Use Recreational Drug Use: No Drug Use in Last 12 Months: Yes Recreational Drug Type: Reports: Marijuana/Hashish - Living Situation & Occupation Living situation: Reports: , with Spouse Occupation: Employed ED ROS GENERAL - Review of Systems Review Of Systems: See Below Constitutional: Reports: Fever, Chills, Malaise, Weakness, Fatigue, Decreased Appetite, Weight Loss (She estimates 21-23 pound weight loss over the last 6 weeks due to just not being able to eat..) HEENT: Reports: No Symptoms Respiratory: Reports: Shortness of Breath Cardiovascular: Reports: Blood Pressure Problem, Lightheadedness. Denies: Dyspnea on Exertion (Elevated blood pressure at this time), Edema, Orthopnea, Palpitations Endocrine: Reports: Fatigue GI/Abdominal: Reports: Abdominal Pain (Postop surgical wounds primarily no new pain.), Decreased Appetite : Reports: No Symptoms Musculoskeletal: Reports: Muscle Pain (Generalized myalgia.) Skin: Reports: No Symptoms Neurological: Reports: No Symptoms Psychiatric: Reports: No Symptoms Hematologic/Lymphatic: Reports: No Symptoms Immunologic: Reports: No Symptoms ED EXAM, GI/ABD - Physical Exam Exam: See Below Exam Limited By: Other General Appearance: Alert, WD/WN (She is very warm to palpation.), Moderate Distress (Flushed and cheeks.) Eyes: Bilateral: Normal Appearance (Again very warm to palpation) Throat/Mouth: Normal Inspection, Normal Lips, Normal Teeth, Normal Oropharynx Head: Atraumatic, Normocephalic Neck: Normal Inspection, Supple, Non-Tender, Full Range of Motion. No: Lymphadenopathy (L), Lymphadenopathy (R) Respiratory/Chest: Lungs Clear, Normal Breath Sounds, Respiratory Distress ( Mild tachypnea dressed 20 per minute.) Cardiovascular: Normal Peripheral Pulses, Regular Rate, Rhythm, No Edema, No Gallop, No Murmur, No Rub GI/Abdominal: Hypoactive Bowel Sounds, Tenderness (Dictated across the lower abdomen infraumbilically suprapubically.), Other (Laparoscopy wounds appear to be healing satisfactory without any signs of infection.). No: Tympanic Bowel Sounds, Guarding, Rebound, Rigidity, Hepatomegaly, Splenomegaly Back Exam: Normal Inspection, Full Range of Motion. No: CVA Tenderness (L), CVA Tenderness (R) Extremities: Normal Inspection, Normal Range of Motion, Non-Tender, No Pedal Edema, Normal Capillary Refill Neurological: Alert, Oriented, CN II-XII Intact, Normal Cognition Psychiatric: Normal Affect, Normal Mood Skin Exam: Warm, Dry, Intact, Normal Color, No Rash Course - Vital Signs Last Recorded V/S: Last Vital Signs Temp 36.7 C 04/15/17 13:45 Pulse 90 04/15/17 13:45 Resp 20 04/15/17 13:45 BP 145/106 H 04/15/17 13:45 Pulse Ox 100 04/15/17 13:45 - Orders/Labs/Meds Orders: Active Orders 24 hr Category Date Time Status CULTURE BLOOD [BC] Stat Lab 04/15/17 14:20 Received CULTURE BLOOD [BC] Stat Lab 04/15/17 14:27 Received Dextrose 5%-0.9% NaCl [Dextrose 5%-Normal Saline] 1,000 Med 04/15/17 14:00 Active ml IV ASDIRECTED Sodium Chloride 0.9% with KCl [Normal Saline with 40 Med 04/15/17 17:45 Active mEq KCl] 1,000 ml IV ASDIRECTED Blood Culture x2 Reflex Set [OM.PC] Stat Oth 04/15/17 14:05 Ordered Medication Orders Dextrose/Sodium Chloride (Dextrose 5%-Normal Saline) 1,000 mls @ 500 mls/hr IV ASDIRECTED JOHNIE Last Admin: 04/15/17 15:15 Dose: 500 mls/hr Potassium Chloride/Sodium Chloride (Normal Saline With 40 Meq Kcl) 1,000 mls @ 125 mls/hr IV ASDIRECTED JOHNIE Last Admin: 04/15/17 17:51 Dose: 125 mls/hr Labs: Laboratory Tests 04/15/17 04/15/17 04/15/17 Range/Units 14:20 14:20 14:20 WBC 10.68 H (3.98-10.04) K/mm3 RBC 5.20 (3.98-5.22) M/mm3 Hgb 14.8 (11.2-15.7) gm/L Hct 43.9 (34.1-44.9) % MCV 84.4 (79.4-94.8) fl MCH 28.5 (25.6-32.2) pg MCHC 33.7 (32.2-35.5) g/dl RDW Std Deviation 42.1 (36.4-46.3) fL Plt Count 366 (182-369) K/mm3 MPV 10.3 (9.4-12.3) fl Neutrophils % (Manual) 86 H (40-60) % Band Neutrophils % 0 (0-10) % Lymphocytes % (Manual) 11 L (20-40) % Atypical Lymphs % 0 % Monocytes % (Manual) 2 (2-10) % Eosinophils % (Manual) 0 L (0.7-5.8) % Basophils % (Manual) 1 (0.1-1.2) Platelet Estimate Adequate Plt Morphology Comment Normal RBC Morph Comment Normal Sodium 140 (136-145) mEq/L Potassium 3.4 L (3.5-5.1) mEq/L Chloride 105 (98-107) mEq/L Carbon Dioxide 26 (21-32) mEq/L Anion Gap 12.4 (5-15) BUN 6 L (7-18) mg/dL Creatinine 0.9 (0.55-1.02) mg/dL Est Cr Clr Drug Dosing TNP Estimated GFR (MDRD) > 60 (>60) mL/min BUN/Creatinine Ratio 6.7 L (14-18) Glucose 112 H (74-106) mg/dL Lactic Acid (0.4-2.0) mmol/L Calcium 9.1 (8.5-10.1) mg/dL Total Bilirubin 0.6 (0.2-1.0) mg/dL AST 18 (15-37) U/L ALT 44 (14-59) U/L Alkaline Phosphatase 66 (46-116) U/L C-Reactive Protein < 0.2 (<1.0) mg/dL Total Protein 7.6 (6.4-8.2) g/dl Albumin 3.7 (3.4-5.0) g/dl Globulin 3.9 gm/dL Albumin/Globulin Ratio 1.0 (1-2) Lipase 210 (73-393) U/L Urine Color (Yellow) Urine Appearance (Clear) Urine pH (5.0-8.0) Ur Specific [place] (1.005-1.030) Urine Protein (Negative) Urine Glucose (UA) (Negative) Urine Ketones (Negative) Urine Occult Blood (Negative) Urine Nitrite (Negative) Urine Bilirubin (Negative) Urine Urobilinogen (0.2-1.0) Ur Leukocyte Esterase (Negative) Urine RBC (0-5) /hpf Urine WBC (0-5) /hpf Ur Epithelial Cells (0-5) /hpf Amorphous Sediment (NOT SEEN) /hpf Urine Bacteria (FEW) /hpf Urine Mucus (FEW) /hpf 04/15/17 04/15/17 Range/Units 14:34 15:30 WBC (3.98-10.04) K/mm3 RBC (3.98-5.22) M/mm3 Hgb (11.2-15.7) gm/L Hct (34.1-44.9) % MCV (79.4-94.8) fl MCH (25.6-32.2) pg MCHC (32.2-35.5) g/dl RDW Std Deviation (36.4-46.3) fL Plt Count (182-369) K/mm3 MPV (9.4-12.3) fl Neutrophils % (Manual) (40-60) % Band Neutrophils % (0-10) % Lymphocytes % (Manual) (20-40) % Atypical Lymphs % % Monocytes % (Manual) (2-10) % Eosinophils % (Manual) (0.7-5.8) % Basophils % (Manual) (0.1-1.2) Platelet Estimate Plt Morphology Comment RBC Morph Comment Sodium (136-145) mEq/L Potassium (3.5-5.1) mEq/L Chloride (98-107) mEq/L Carbon Dioxide (21-32) mEq/L Anion Gap (5-15) BUN (7-18) mg/dL Creatinine (0.55-1.02) mg/dL Est Cr Clr Drug Dosing Estimated GFR (MDRD) (>60) mL/min BUN/Creatinine Ratio (14-18) Glucose (74-106) mg/dL Lactic Acid 1.5 (0.4-2.0) mmol/L Calcium (8.5-10.1) mg/dL Total Bilirubin (0.2-1.0) mg/dL AST (15-37) U/L ALT (14-59) U/L Alkaline Phosphatase (46-116) U/L C-Reactive Protein (<1.0) mg/dL Total Protein (6.4-8.2) g/dl Albumin (3.4-5.0) g/dl Globulin gm/dL Albumin/Globulin Ratio (1-2) Lipase (73-393) U/L Urine Color Yellow (Yellow) Urine Appearance Clear (Clear) Urine pH 8.5 H (5.0-8.0) Ur Specific [place] 1.020 (1.005-1.030) Urine Protein 1+ H (Negative) Urine Glucose (UA) Negative (Negative) Urine Ketones 1+ H (Negative) Urine Occult Blood Negative (Negative) Urine Nitrite Negative (Negative) Urine Bilirubin Negative (Negative) Urine Urobilinogen 0.2 (0.2-1.0) Ur Leukocyte Esterase Negative (Negative) Urine RBC 0-5 (0-5) /hpf Urine WBC 0-5 (0-5) /hpf Ur Epithelial Cells 0-5 (0-5) /hpf Amorphous Sediment Few H (NOT SEEN) /hpf Urine Bacteria Moderate H (FEW) /hpf Urine Mucus Few (FEW) /hpf Meds: Medications Generic Name Dose Route Start Last Admin Trade Name Freq PRN Reason Stop Dose Admin Dextrose/Sodium Chloride 1,000 mls @ 500 mls/hr 04/15/17 14:00 04/15/17 15:15 Dextrose 5%-Normal Saline IV 500 mls/hr ASDIRECTED JOHNIE Administration Potassium Chloride/Sodium Chloride 1,000 mls @ 125 mls/hr 04/15/17 17:45 17:51 Normal Saline With 40 Meq Kcl IV 125 mls/hr ASDIRECTED JOHNIE Administration Discontinued Medications Generic Name Dose Route Start Last Admin Trade Name Freq PRN Reason Stop Dose Admin Acetaminophen 975 mg 04/15/17 14:07 04/15/17 17:41 Tylenol PO 04/15/17 14:08 Not Given NOW ONE Hydromorphone HCl 1.5 mg 04/15/17 15:05 04/15/17 15:26 Dilaudid IM 04/15/17 15:06 Not Given ONETIME ONE Hydromorphone HCl 1 mg 04/15/17 15:15 04/15/17 15:19 Dilaudid IVPUSH 04/15/17 15:16 1 mg ONETIME ONE Administration Hydromorphone HCl 1 mg 04/15/17 17:17 04/15/17 17:22 Dilaudid IVPUSH 04/15/17 17:18 1 mg ONETIME ONE Administration Iopamidol 125 ml 04/15/17 15:25 04/15/17 15:55 Isovue-300 (61%) IVPUSH 04/15/17 15:26 125 ml ONETIME ONE Administration Metoclopramide HCl 10 mg 04/15/17 14:06 04/15/17 15:26 Reglan IVPUSH 04/15/17 14:07 Not Given ONETIME ONE Metoclopramide HCl 10 mg 04/15/17 15:06 04/15/17 15:26 Reglan IM 04/15/17 15:07 Not Given ONETIME ONE Metoclopramide HCl 10 mg 04/15/17 15:15 04/15/17 15:25 Reglan IVPUSH 04/15/17 15:16 10 mg ONETIME ONE Administration Sodium Chloride 10 ml 04/15/17 15:25 04/15/17 15:56 Saline Flush FLUSH 04/15/17 15:26 10 ml ONETIME ONE Administration - Radiology Interpretation Free Text/Narrative:: 36-year-old female who is now 3 days post laparoscopic cholecystectomy presents the hospital with fever chills and rigors. This developed over night and particularly worsening this morning. She is definitely febrile on exam. Absent bowel sounds appreciated. Uncertain appreciated for possible development of operative complication such as abscess formation. Plan septic workup will be completed. IV will be D5 normal saline at 500 mils per hour. Given Toradol 30 mg IV and Tylenol 975 mg by mouth and Reglan 10 mg IV for nausea relief. A chest x-ray will to be done portably. I will await x-ray of the abdomen and she will likely need CT. - Re-Assessments/Exams Free Text/Narrative Re-Assessment/Exam: 04/15/17 15:07 so far nurses of not been able to establish IV on this patient. She is complaining of increasing abdominal pain like she is about to explode particularly in the lower abdomen. She's not had any flatus passage for at least 6 or 7 hours. Plan Will give her 1.5 mg of Dilaudid IM and Reglan 10 mg IM for acute pain relief tonight he can be established. Apparently DOLLYMAN has been called to establish IV. Any an IV for IV contrast for abdominal pelvis CT. of the chest x-ray done portably is within normal limits. The visualized portion of the abdomen shows no air or evidence of obstruction. 04/15/17 15:20 lab work reveals a white count of 10.68 with 86% neutrophils and no bands hemoglobin is 14.8 hematocrit of 43.9 platelets are 3 and 66,000. Chemistry shows a sodium of 140 potassium is low at 3.4 chloride 105 bicarbonate 26. Bilirubin is 0.6 AST is 18 ALT is 44 all normal lipase 210. Renal function is normal with a creatinine of 0.9. IV has been established. She will receive Reglan 10 mg IV and Dilaudid 1 mg IV. Plan will be to send her to CT for CT abdomen and pelvis with IV contrast only. 04/15/17 17:00: Patient currently rates her abdominal pain as a 5/10. CT of the abdomen performed with IV contrast only as I was looking for a potential abscess formation in the abdomen or pelvis. Also she was experiencing intractable nausea and vomiting I did not feel a contrast orally which gave him. He does showed soft tissue density within the gallbladder bed presumably representing postoperative changes with no definitive abscess that were evident. There was nothing in the pelvis to suggest free fluid or pelvic abscess development. No signs of bowel obstruction. Therefore left with a patient with with intractable nausea and vomiting and abdominal pain of unclear etiology. Her reports this is similar type illness she had before she had her gallbladder removed while she was hospitalized here for 5 days. Have a look at the EGD report done by Dr. Shashi Zepeda when she was hospitalized and he found no abnormalities in the stomach or duodenum his assessment and no evidence of hiatal hernia. Multiple labs have been collected to the ED over the last 2 weeks and is never any evidence of any pancreatitis. Her medication list naltrexone 50 mg daily and Diethylproprion. Both of these drugs are being used as a form of weight loss agents. However both are prone to causing intractable nausea and vomiting 04/15/17 17:25 Paatient got up to the bathroom and her abdominal pain increased dramatically. She stated her pain went from a 5 to a 9. Therefore given Dilaudid 1 mg IV for pain relief. I'm not sure that we have anything to offer her here. Scheduled for gastroenterology consultation on May 08 which may be a bit long for her to wait in her current condition. With her current pain syndrome and intractable nausea and vomiting she requires admission to the hospital. I believe we are out of beds . 04/15/17: 17:35 ; confirmed currently we do not have any beds in the hospital. 04/15/17 18:11 [address] have spoken with [address] Oleksandr eduardo at [facility] in [facility] through the one call system. He has accepted care of this patient and therefore she will be transported by ground ambulance as soon as suitable transportation can be arranged. Departure - Departure Time of Disposition: 18:13 Disposition: DC/Tfer to Acute Hospital 02 Condition: fair Clinical Impression: Diffuse abdominal pain Intractable nausea and vomiting Qualifiers: Vomiting type: unspecified Qualified Code(s): R11.2 - Nausea with vomiting, unspecified - Discharge Information Forms: ED Department Discharge Additional Instructions: Patient sent to [facility] where she has had recent upper scopic cholecystectomy 4 days ago she presents for hospital intractable nausea and vomiting since early this morning with diffuse abdominal pain. CT scan did not identify any evidence of a gallbladder fossa abscess or pelvic abscess. No bowel obstruction was identified. Clinically she presented with a low-grade fever. White count is near normal however at 10.68 with 86% neutrophils. She continued to have abdominal pain and therefore was sent back to [facility] for definitive care primarily because we do not have any beds in our hospital and she needs to be admitted somewhere. I have some concerns that her intractable nausea and vomiting may well be related to current medications naltrexone and diethyl bupropion which are being utilized as weight loss agents. Apparently these medicines were started in December of this year. She has had intractable nausea and vomiting for the better part of 6 weeks. Highly suspect medications may be the culprit. - My Orders Last 24 Hours: My Active Orders 04/15/17 14:00 Dextrose 5%-0.9% NaCl [Dextrose 5%-Normal Saline] 1,000 ml IV ASDIRECTED 04/15/17 14:05 Blood Culture x2 Reflex Set [OM.PC] Stat 04/15/17 14:20 CULTURE BLOOD [BC] Stat 04/15/17 14:27 CULTURE BLOOD [BC] Stat 04/15/17 17:45 Sodium Chloride 0.9% with KCl [Normal Saline with 40 mEq KCl] 1,000 ml IV ASDIRECTED - Assessment/Plan Last 24 Hours: My Active Orders 04/15/17 14:00 Dextrose 5%-0.9% NaCl [Dextrose 5%-Normal Saline] 1,000 ml IV ASDIRECTED 04/15/17 14:05 Blood Culture x2 Reflex Set [OM.PC] Stat 04/15/17 14:20 CULTURE BLOOD [BC] Stat 04/15/17 14:27 CULTURE BLOOD [BC] Stat 04/15/17 17:45 Sodium Chloride 0.9% with KCl [Normal Saline with 40 mEq KCl] 1,000 ml IV ASDIRECTED
[2017-04-15] MEDS ORDERED: Dextrose 5%-0.9% NaCl 1,000 ML IV SCH (14:00)
[2017-04-15] MEDS ORDERED: Metoclopramide 10 MG/2 ML SDV IVPUSH ONE ×2 (14:06→15:15)
[2017-04-15] MEDS ORDERED: Acetaminophen 325 MG Tab PO ONE (14:07)
[2017-04-15] MEDS ORDERED: HYDROmorphone 1 MG/ML Syringe IM ONE (15:05)
[2017-04-15] MEDS ORDERED: Metoclopramide 10 MG/2 ML SDV IM ONE (15:06)
[2017-04-15] MEDS ORDERED: HYDROmorphone 1 MG/ML Syringe IVPUSH ONE ×2 (15:15→17:17)
[2017-04-15] MEDS ORDERED: Iopamidol 612 MG/ML 150 ML Bottle IVPUSH ONE (15:25)
[2017-04-15] MEDS: Sodium Chloride 0.9% 10 ML Syringe FLUSH ONE ×2 (15:26→15:56)
--- NOTE | 2017-04-15 15:37 | CR ---
Chest: Portable view of the chest was obtained. Comparison: No previous study. Heart size and mediastinum are within normal limits for portable technique. Lungs are clear. Bony structures are grossly intact. Impression: 1. Nothing acute is identified on portable chest x-ray. Diagnostic code #1
--- NOTE | 2017-04-15 16:25 | CT ---
CT abdomen and pelvis Technique: Multiple axial sections were obtained from above the dome of the diaphragm inferiorly through the pubic symphysis. Intravenous contrast was utilized. No oral contrast has been given. Delayed images were obtained through the bladder. Comparison: Previous CT abdomen and pelvis exam of 04/01/17. Findings: Visualized lung bases shows nothing acute. Liver shows no focal abnormality. Spleen size is within normal limits. Small nodule medial to the spleen compatible with small amount of accessory splenic tissue. Adrenal glands show no nodule. Pancreas is within normal limits. Surgical clips are seen from prior cholecystectomy which is an interval change from prior exam. Kidneys show symmetric contrast enhancement without hydronephrosis or mass. Aorta shows no aneurysmal dilatation. No retroperitoneal adenopathy or mesenteric abnormalities are seen. No pelvic mass or adenopathy is seen. No free fluid or inflammatory change is identified within the abdomen or pelvis. No bowel dilatation is seen. Slight soft tissue density is seen within the gallbladder bed most likely representing minimal postoperative change. Delayed images shows contrast within the bladder. Bone window settings were reviewed which appear within normal limits for the patient's age. Impression: 1. Previous cholecystectomy. This has occurred in the interval from prior CT exam. Soft tissue density within the gallbladder bed presumably representing postoperative change. 2. Other incidental findings as noted above. Nothing acute is identified on CT study of the abdomen and pelvis. Diagnostic code #2
[2017-04-15] MEDS ORDERED: Sodium Chloride 0.9% with KCl 1,000 ML IV SCH (17:45)
[2017-04-15 19:27] VITALS: BP 162/103
== END 2017-04-15 18:53 ==
LOC: JD.ED 13:27 → SUPCPDRO 13:27 → JD.ED 18:53
DX: R10.84 Generalized abdominal pain (principal); R11.2 Nausea with vomiting, unspecified; K21.9 Gastro-esophageal reflux disease without esophagitis; E66.9 Obesity, unspecified; Z90.49 Acquired absence of other specified parts of digestive tract; Z79.899 Other long term (current) drug therapy; Z88.0 Allergy status to penicillin; Z88.1 Allergy status to other antibiotic agents
CPT/HCPCS: 36415; 71010; 74177; 80053; 81001; 83605; 83690; 85025; 86140; 87040; 96361; 96374; 96375; 96376; 99285; J1170; J2765; J3480; J7042; J7050; Q9967; A9270-GY

== ENCOUNTER 2020-06-01 04:07 | Emergency (ER) | payer BC ==
[2020-06-01 04:19] VITALS: BP 142/77; PULSE 91
--- NOTE | 2020-06-01 04:50 | EDM.PDOC ---
ED HPI GENERAL MEDICAL PROBLEM - General Chief Complaint: ENT Problem Stated Complaint: ear bleeding Time Seen by Provider: 06/01/20 04:28 Source of Information: Reports: Patient History Limitations: Reports: No Limitations - History of Present Illness INITIAL COMMENTS - FREE TEXT/NARRATIVE: Mrs. Mary is a very pleasant 39-year-old woman with a past medical history significant for allergic rhinitis with frequent ear infections, status post a right myringotomy tube placed in late 2018, who now presents the ED stating that she woke around 2:00 this morning with a damp feeling to her right ear. She discovered blood on her pillowcase and a small amount of blood emanating from her right ear. She denies having any pain. The patient states that she has the myringotomy checked periodically, and that it was found to be intact about 1 month ago. She states that her head has felt stuffy for the past several days, therefore she has been using Afrin nasal spray (oxymetazoline) twice a day for the past 4 or 5 days. No recent fever. Here in the ED, the patient's initial BP is found to be mildly elevated at 142/77, otherwise, she is hemodynamically stable, afebrile, saturating 100% on room air. Other than recent allergic rhinitis, the patient denies recent fever, chills, sore throat, ear pain, cough, dyspnea, chest pain, palpitations, nausea, vomiting, constipation, diarrhea, abdominal pain, urinary symptoms, recent weight gain or weight loss, recent bloody bowel movements or black bowel movements, recent joint aches, headaches, or rashes. The patient's PCP is Shira Solares NP. Her Sales Force Administrator is Dr. Maame pink. Her Bariatric Surgeon is Dr. Serafin Arredondo. She does not recall the name of her ENT, in [place]. - Related Data Allergies Allergy/AdvReac Type Severity Reaction Status Date / Time amoxicillin Allergy Severe Hives Verified 06/01/20 04:20 Penicillins Allergy Severe Hives Verified 06/01/20 04:19 Home Meds: Home Meds . [No Known Home Meds] 06/01/20 [History] Past Medical History HEENT History: Reports: Allergic Rhinitis, Impaired Vision Endocrine/Metabolic History: Reports: Obesity/BMI 30+ - Past Surgical History HEENT Surgical History: Reports: Myringotomy w Tube(s) (right only, late 2019) GI Surgical History: Reports: Bariatric Procedure (laparoscopic sleeve gastrectomy, 2017), Cholecystectomy (2017) Female Surgical History: Reports: D&C (x 2), Other (See Below) (Hysteroscopy x 1. 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 ED EXAM, ENT - Physical Exam Exam: See Below Exam Limited By: No Limitations General Appearance: Alert, WD/WN, No Apparent Distress Eye Exam: Bilateral Eye: EOMI, Normal Inspection Ears: Normal Canal, Other (Left TM slightly bulging with clear fluid and small bubbles visible. Right TM with no myringotomy tube visible. There is some swelling and maceration of the anterior TM with associated blood/clot. No suggestion of an infection.) Nose: Normal Inspection, Normal Mucousa, No Blood Mouth/Throat: Normal Inspection, Normal Gums, Normal Lips, Normal Oropharynx, Normal Teeth Head: Atraumatic, Normocephalic Neck: Normal Inspection, Supple, Non-Tender, Full Range of Motion. No: Lymphadenopathy (L), Lymphadenopathy (R) Course - Vital Signs Last Recorded V/S: Last Vital Signs Temp 36.5 C 06/01/20 04:14 Pulse 91 06/01/20 04:14 Resp 20 06/01/20 04:14 BP 142/77 H 06/01/20 04:14 Pulse Ox 100 06/01/20 04:14 - Re-Assessments/Exams Free Text/Narrative Re-Assessment/Exam: 06/01/20 04:45 As above, the patient woke with a small amount of blood emanating from her right ear. She acknowledges that her head has felt stuffy over the past few days, for which she has been using oxymetazoline twice a day for the past 4 to 5 days. On examination, I do not see a myringotomy tube, which the patient assures me was present about 1 month ago. It is possible that the myringotomy tube has since fallen out on its own, and that what I am seeing tonight is a perforated tympanic membrane due to increased middle ear pressure. It is also possible that the myringotomy tube fell out tonight, again, due to increased pressure, although if the tubes were patent, that should not have happened. At present, I do not see any indication for immediate treatment, however, I am recommending that she contact her ENT later this morning to see if they would want her to be on an antibiotic eardrop. Departure - Departure Time of Disposition: 04:48 Disposition: Home, Self-Care 01 Condition: Good Clinical Impression: Perforated right tympanic membrane on examination - Discharge Information *PRESCRIPTION DRUG MONITORING PROGRAM REVIEWED*: Not Applicable *COPY OF PRESCRIPTION DRUG MONITORING REPORT IN PATIENT JAMAAL: Not Applicable Instructions: Tympanic Membrane Perforation-SportsMed Referrals: Shira Solares NP [Primary Care Provider] - Serafin Arredondo MD [Ordering Only Provider] - Maame Pink MD [Ordering Only Provider] - Forms: ED Department Discharge Additional Instructions: You were seen in the emergency room after waking with blood emanating from your right ear. On examination, no ear tube was visible, but your tympanic membrane appears to be cut, with a small amount of associated blood. We recommend that you contact your ENT this morning, to see if they want to prescribe for you an antibiotic eardrop. As discussed, we recommend that you stop using the Afrin nasal spray, however, you may start using a steroid nasal spray, such as fluticasone (Flonase) or mometasone (Nasonex), as directed on the label. If any other problems, please do not hesitate to return to the ER. Sepsis Event Note (ED) - Evaluation Sepsis Screening Result: No Definite Risk - Focused Exam Vital Signs: Vital Signs Temp Pulse Resp BP Pulse Ox 06/01/20 04:14 36.5 C 91 20 142/77 H 100
== END 2020-06-01 05:00 | disposition home or self-care (01) ==
LOC: JD.ED 04:07
DX: H72.91 Unspecified perforation of tympanic membrane, right ear (principal); E66.9 Obesity, unspecified; Z68.39 Body mass index [BMI] 39.0-39.9, adult; Z96.22 Myringotomy tube(s) status; Z88.1 Allergy status to other antibiotic agents; Z88.0 Allergy status to penicillin
CPT/HCPCS: 99282

== ENCOUNTER 2021-03-29 06:09 | Day surgery (SDC) | payer BC ==
[~2021-03-29 06:09] MED LIST: Lactated Ringers 1,000 ML IV SCH; Lidocaine 1%/Sod Bicarbonate in NS 8.4% 1 ML Syringe IDERM PRN; Sodium Chloride 0.9% 10 ML Syringe FLUSH PRN
[2021-03-29] MEDS ORDERED: Triamcinolone Acetonide 40 MG/ML 1 ML SDV ONE ×2 (06:26→06:50)
[2021-03-29] MEDS ORDERED: Lidocaine 1% 30 ML SDV ONE (06:27)
--- NOTE | 2021-03-29 06:48 | PCM.PREANE ---
Preanesthetic Assessment - Anesthesia/Transfusion/Family Hx Anesthesia History: Prior Anesthesia Without Reaction Family History of Anesthesia Reaction: No Transfusion History: No Prior Transfusion(s) - Review of Systems General: No Symptoms Pulmonary: No Symptoms Cardiovascular: No Symptoms Gastrointestinal: Other (history of gastroparesis, states its food related that makes her have emesis. gastric sleeve 2017) Neurological: Numbness, Weakness (right hand) Other: Reports: Easy Bruising - Physical Assessment NPO Status Date: 03/28/21 NPO Status Time: 18:30 Weight: 122 kg ASA Class: 2 Mental Status: Alert & Oriented x3 Airway Class: Mallampati = 2 Dentition: Reports: Normal Dentition Thyro-Mental Finger Breadths: 3 Mouth Opening Finger Breadths: 3 ROM/Head Extension: Full Lungs: Clear to Auscultation, Normal Respiratory Effort Cardiovascular: Regular Rate, Regular Rhythm - Lab Values: Laboratory Last Values MRSA (PCR) Cancelled 03/14/21 15:26 - Allergies Allergies/Adverse Reactions: Allergies Allergy/AdvReac Type Severity Reaction Status Date / Time amoxicillin Allergy Severe Hives Verified 03/28/21 11:31 Penicillins Allergy Severe Hives Verified 03/28/21 11:31 clindamycin Allergy Cannot Verified 03/28/21 11:31 Remember lactose Allergy Cannot Verified 03/28/21 11:31 Remember - Blood Blood Available: No Product(s) Available: None - Anesthesia Plan Pre-Op Medication Ordered: None - Acknowledgements Anesthesia Type Planned: MAC Pt an Appropriate Candidate for the Planned Anesthesia: Yes Alternatives and Risks of Anesthesia Discussed w Pt/Guardian: Yes Pt/Guardian Understands and Agrees with Anesthesia Plan: Yes PreAnesthesia Questionnaire - Past Health History Medical/Surgical History: Denies Medical/Surgical History HEENT History: Reports: Allergic Rhinitis, Impaired Vision, Other (See Below) Other HEENT History: wears glasses Cardiovascular History: Reports: None Respiratory History: Reports: None Gastrointestinal History: Reports: GERD, Other (See Below) Other Gastrointestinal History: abdominal pain, gastroparesis Genitourinary History: Reports: None 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: , Other (See Below) Other OB/BYN History: infertility, irregular menses, polycystic ovaries Musculoskeletal History: Reports: Other (See Below) Other Musculoskeletal History: bilateral carpal tunnel syndrome Neurological History: Reports: None Psychiatric History: Reports: None Endocrine/Metabolic History: Reports: Obesity/BMI 30+, Other (See Below) Other Endocrine/Metabolic History: hyperglycemia Hematologic History: Reports: None Immunologic History: Reports: None Oncologic (Cancer) History: Reports: None Dermatologic History: Reports: None - Infectious Disease History Infectious Disease History: Reports: None - Past Surgical History Head Surgeries/Procedures: Reports: None HEENT Surgical History: Reports: Myringotomy w Tube(s) Cardiovascular Surgical History: Reports: None Respiratory Surgical History: Reports: None GI Surgical History: Reports: Bariatric Procedure, Cholecystectomy, EGD Female Surgical History: Reports: D&C Endocrine Surgical History: Reports: None Neurological Surgical History: Reports: None Musculoskeletal Surgical History: Reports: None Oncologic Surgical History: Reports: None Dermatological Surgical History: Reports: None - History Comment History Comment: wellbutrin and metformin pills for weight loss - SUBSTANCE USE Tobacco Use Status *Q: Never Tobacco User Recreational Drug Use History: No - HOME MEDS Home Medications: Home Meds Biotin 1 mg PO DAILY 03/28/21 [History] Lactobacillus Acidophilus [Acidophilus Probiotic] 1 cap PO DAILY 03/28/21 [History] Mometasone Furoate [Elocon 0.1% Crm] 1 dose TOP ASDIRECTED PRN 03/28/21 [History] Multivitamin [Daily-Tera] 1 tab PO DAILY 03/28/21 [History] Super Beets 2 tab PO DAILY 03/28/21 [History] traZODone 50 mg PO BEDTIME PRN 03/28/21 [History] - CURRENT (IN HOUSE) MEDS Current Meds: Current Medications Lactated Ringer's (Ringers, Lactated) 1,000 mls @ 125 mls/hr IV ASDIRECTED JOHNIE Stop: 03/29/21 23:00 Lidocaine/Sodium Bicarbonate (Lidocaine 1%/Sod Bicarbonate In Ns 8.4% 1 Ml Syringe) 0.25 ml IDERM ONETIME PRN PRN Reason: Prior to IV Start Stop: 03/29/21 23:00 Sodium Chloride (Sodium Chloride 0.9% 10 Ml Syringe) 10 ml FLUSH ASDIRECTED PRN PRN Reason: Keep Vein Open Stop: 03/29/21 23:00 Discontinued Medications Bupivacaine HCl (Bupivacaine 0.25% 10 Ml Sdv) Confirm Administered Dose 20 ml .ROUTE .STK-MED ONE Stop: 03/29/21 06:28 Lidocaine HCl (Lidocaine 1% 30 Ml Sdv) Confirm Administered Dose 30 ml .ROUTE .STK-MED ONE Stop: 03/29/21 06:28 Triamcinolone Acetonide (Triamcinolone Acetonide 40 Mg/Ml 1 Ml Sdv) Confirm Administered Dose 40 mg .ROUTE .STK-MED ONE Stop: 03/29/21 06:27
[2021-03-29] MEDS ORDERED: fentaNYL 100 MCG/2 ML SDV ONE (06:53)
[2021-03-29] MEDS ORDERED: ceFAZolin 1 GM Vial ONE (06:53)
[2021-03-29] MEDS ORDERED: Midazolam 1 MG/ML 2 ML SDV ONE (06:53)
[2021-03-29] MEDS ORDERED: Propofol 200 MG/20 ML SDV ONE (06:54)
[2021-03-29] MEDS ORDERED: Ondansetron 4 MG/2 ML SDV ONE (06:59)
[2021-03-29] MEDS: Bupivacaine 0.25% 10 ML SDV ONE ×3 (07:14→07:23)
[2021-03-29] MEDS ORDERED: diphenhydrAMINE 50 MG/ML SDV IVPUSH PRN (07:35)
[2021-03-29] MEDS ORDERED: fentaNYL 100 MCG/2 ML SDV IVPUSH ONE (07:35)
--- NOTE | 2021-03-29 07:35 | PCM48HPAN ---
Post Anesthesia Note - EVALUATION WITHIN 48HRS OF ANESTHETIC Vital Signs in Normal Range: Yes Patient Participated in Evaluation: Yes Respiratory Function Stable: Yes Airway Patent: Yes Cardiovascular Function Stable: Yes Hydration Status Stable: Yes Pain Control Satisfactory: Yes Nausea and Vomiting Control Satisfactory: Yes Mental Status Recovered: Yes Vital Signs: Last Vital Signs Temp 37.2 C 03/29/21 06:15 Pulse 74 03/29/21 06:15 Resp 16 03/29/21 06:15 BP 105/60 03/29/21 06:15 Pulse Ox 100 03/29/21 06:15
[2021-03-29 08:30] VITALS: BP 126/79; PULSE 55
--- NOTE | 2021-04-12 16:37 | PCM.OPNOTE ---
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
--- NOTE | 2021-04-12 17:06 | OR ---
DATE OF OPERATION: 03/29/2021 SURGEON: Waqar Markham MD OPERATION PERFORMED: Right carpal tunnel release with right 1st dorsal compartment injection and left carpal tunnel injection. PREOPERATIVE DIAGNOSIS: Bilateral median nerve compression neuropathy and right de Quervains tenosynovitis. POSTOPERATIVE DIAGNOSIS: Bilateral median nerve compression neuropathy and right de Quervains tenosynovitis. ANESTHESIA: Local MAC. ANESTHESIA PROVIDER: HYDROLOGIST: Alexandria Baez PA-C ESTIMATED BLOOD LOSS: 0 mL. COMPLICATIONS: None. CONDITION: Stable. DESCRIPTION OF PROCEDURE: The patient was identified in the preop holding area. Proper site was marked and identified by the surgeon. The patient was taken back to the operating theater where after adequate anesthesia, the patient's right upper extremity was sterilely prepped and draped in the usual sterile fashion. OR time-out was performed. The patient did not receive antibiotics and it is not indicated for soft tissue hand procedure. At this time, the right upper extremity was exsanguinated and an Esmarch was used as a tourniquet on the forearm. At this time, using 1% lidocaine without epinephrine and 0.25% Marcaine without epinephrine, the palmar cutaneous branch of the median nerve was anesthetized and then the incisional site was anesthetized using [place] cardinal line and ulnar border of the fourth digit as reference. Once this had set up, an incision was made. Blunt dissection was taken down to the palmar cutaneous fascia. Palmar cutaneous fascia was incised with a [place] blade. At this time, the transverse carpal ligament was identified. A small rent was made in the transverse carpal ligament with a [place] blade under direct visualization. Resection of the transverse carpal ligament was done distally using tenotomy scissors making sure to stop short of the palmar arch. At this time, attention was turned proximally after it was found to be adequately released. Using the tenotomy scissors keeping the tips ulnar to protect the palmar cutaneous branch of the median nerve, the superficial forearm fascia as well as the transverse carpal ligament were resected proximally. It was found to be adequate release both proximally and distally. At this time, adequate saline was irrigated through the wound. 4-0 nylon sutures were used closure of the skin. The patient was placed in a sterile soft dressing and sent to PACU in stable condition. After this was completed under sterile technique, 1 mL of 40 mg Kenalog and 2 mL of 0.25% Marcaine were injected to the right 1st dorsal compartment and 1 mL of 40 mg Kenalog and 2 mL of 0.25% Marcaine were injected to the left carpal tunnel. The patient tolerated all procedures well and was sent to PACU in stable condition. MMNHAN /[id number]
== END 2021-03-29 08:14 | disposition home or self-care (01) ==
LOC: JD.SDS 06:09
PROVIDERS: ATTEND Orthopaedic Surgery
DX: G56.03 Carpal tunnel syndrome, bilateral upper limbs (principal); M65.4 Radial styloid tenosynovitis [de Quervain]; E66.9 Obesity, unspecified; Z68.41 Body mass index [BMI] 40.0-44.9, adult; Z88.0 Allergy status to penicillin; Z88.1 Allergy status to other antibiotic agents; Z88.8 Allergy status to other drugs, medicaments and biological substances
CPT/HCPCS: 20526; 20551; 64721; J0690; J2250; J2405; J2704; J3010; J3301; J3490; J7120; 01810; 87641